=== PATIENT | female | born 1985 | race Caucasian/White ===

== ENCOUNTER 2016-11-18 19:48 | Inpatient (IN) | payer SELFPAY ==
[~2016-11-18] VITALS: Ht 177.8 cm; Wt 70.0 kg
[2016-11-18] MEDS ORDERED: KETOROLAC TROMETHAMINE 30 MG/ML (IVP) VIAL IVP ONE (20:00)
[2016-11-18] MEDS ORDERED: MORPHINE SULFATE 4 MG/ML INJ IV PUSH ONE ×2 (20:00→23:45)
[2016-11-18] MEDS ORDERED: SODIUM CHLORIDE 0.9% FLUSH 10 ML FLUSH IV FLUSH PRN ×2 (20:00→23:45)
[2016-11-18] MEDS ORDERED: ONDANSETRON HCL 4 MG/2 ML VIAL IVP ONE (20:00)
[2016-11-18] MEDS ORDERED: SODIUM CHLOR 0.9% 1000 ML INJ 1,000 ML IV SCH (20:00)
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
[2016-11-18 20:15] VITALS: BP 135/87; PULSE 112; RESP 18; TEMP 99.8; O2SAT 100
[2016-11-18] MEDS ORDERED: TRIL300T PO (20:35)
[2016-11-18 21:04] LABS: BASOPHIL % 0.3 % (0.0-2.0); EOSINOPHIL # 0.2 TH/MM3 (0-0.4); EOSINOPHIL % 1.4 % (0.0-4.0); HEMATOCRIT 40.7 % (35.0-46.0); HEMO FLAGS DIFF FINAL; LYMPH % 6.5 % (9.0-44.0); LYMPHOCYTE # 0.8 TH/MM3 (1.0-4.8); MEAN CORPUSCULAR HEMOGLOBIN 30.7 PG (27.0-34.0); MEAN CORPUSCULAR HGB CONC 33.7 % (32.0-36.0); MONO % 9.2 % (0.0-8.0); NEUT % 82.6 % (16.0-70.0); PLATELET COUNT 200 TH/MM3 (150-450); RED BLOOD COUNT 4.48 MIL/MM3 (4.00-5.30); RED CELL DISTRIBUTION WIDTH 12.8 % (11.6-17.2); WHITE BLOOD COUNT 12.1 TH/MM3 (4.0-11.0)
[2016-11-18 21:07] LABS: BACTERIA, URINE MOD /hpf; BLOOD, URINE SMALL (NEG); COMMENT (UR) CULTURE INDICATED; CULTURE IF INDICATED CULTURE INDICATED; GLUCOSE,URINE NEG (NEG); KETONE, URINE NEG (NEG); NITRITE,URINE NEG (NEG); PH, URINE 8.5 (5.0-8.5); SQUAMOUS EPITHELIAL CELL URINE 8 /hpf (0-5); URINE COLOR LIGHT-YELLOW (YELLW/STRAW)
[2016-11-18 21:12] LABS: INTERNATIONAL NORMALIZED RATIO 0.9 RATIO; PROTHROMBIN TIME - PATIENT 9.9 SEC (9.8-11.6)
[2016-11-18 21:39] LABS: ALT (GPT) 94 U/L (10-53)
[2016-11-18 21:41] LABS: ALKALINE PHOSPHATASE 90 U/L (45-117); TOTAL BILIRUBIN ADULT 0.5 MG/DL (0.2-1.0)
[2016-11-18 21:53] LABS: ANION GAP 7 MEQ/L (5-15); AST (GOT) 61 U/L (15-37); BICARBONATE 26.4 MEQ/L (21.0-32.0); BLOOD UREA NITROGEN 16 MG/DL (7-18); CHLORIDE 103 MEQ/L (98-107); GLOMERULAR FILTRATION RATE 91 ML/MIN (>89); POTASSIUM 4.3 MEQ/L (3.5-5.1); SODIUM (NA) 136 MEQ/L (136-145)
--- NOTE | 2016-11-18 22:24 | RADRPT ---
EXAM DATE/TIME: 11/18/2016 21:54 [facility] COMPARISON: No previous studies available for comparison. INDICATIONS : Patient complains of left side flank pain. ORAL CONTRAST: No oral contrast ingested. RADIATION DOSE: 13.42 CTDIvol (mGy) MEDICAL HISTORY : Renal calculi. SURGICAL HISTORY : None. ENCOUNTER: Initial ACUITY: 2 days PAIN SCALE: 10/10 LOCATION: Left flank TECHNIQUE: Volumetric scanning of the abdomen and pelvis was performed. Using automated exposure control and ad justment of the mA and/or kV according to patient size, radiation dose was kept as low as reasonably achievable to obtain optimal diagnostic quality images. DICOM format image data is available electro nically for review and comparison. FINDINGS: There is evidence of acute obstructive uropathy of the left proximal ureter secondary to a 14 x 8 mm calcified calculus resulting in moderate hydronephrosis on the left. Tiny nonobstructing calcified l eft renal calculi are also noted and measure approximately 2 mm each. Evaluation of the solid organs of the abdomen is limited by the lack of intravenous contrast. No obs tructive uropathy is noted on the right. No ascites is noted. No bowel obstruction is noted. The a ppendix is normal. Minimal scoliosis of the lumbar spine is noted. CONCLUSION: 1. Acute obstructive uropathy of the left proximal ureter at the left ureteropelvic junction secondar y to a calcified calculus measuring 14 x 8 mm. Moderate hydronephrosis is noted on the left. 2. Tiny 2 mm calcified nonobstructing left renal calculi are also noted. 3. Minimal scoliosis of the lumbar spine. Robi Abbasi MD on November 18, 2016 at 22:12 Board Certified Radiologist. This report was verified electronically.
[2016-11-18] MEDS ORDERED: LEVOFLOXACIN 750 MG PREMIX INJ 150 ML IV ONE (22:30)
[2016-11-18] MEDS ORDERED: ONDANSETRON HCL 4 MG/2 ML VIAL IVP PRN (23:45)
[2016-11-18] MEDS ORDERED: NALOXONE HCL 0.4 MG/ML AMP IV PUSH PRN (23:45)
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
[2016-11-19 04:04] VITALS: BP 118/73; PULSE 117; RESP 18; TEMP 100.4; O2SAT 100
[2016-11-19] MEDS: SODIUM CHLOR 0.9% 1000 ML INJ 1,000 ML IV SCH ×3 (04:09→20:56)
[2016-11-19] MEDS: MORPHINE SULFATE 4 MG/ML INJ IV PUSH PRN ×3 (04:09→12:36)
[2016-11-19 06:19] LABS: BICARBONATE 22.6 MEQ/L (21.0-32.0)
[2016-11-19 07:08] VITALS: BP 101/59; PULSE 121; RESP 16; TEMP 101; O2SAT 97
[2016-11-19] MEDS: SODIUM CHLORIDE 0.9% FLUSH 10 ML FLUSH IV FLUSH SCH ×2 (07:30→20:56)
[2016-11-19] MEDS: CIPROFLOXACIN 400 MG PREMIX 200 ML IV SCH ×2 (07:31→20:55)
[2016-11-19 08:43] LABS: AUTOMATED NEUTROPHIL # 9.2 TH/MM3 (1.8-7.7); BASOPHIL % 0.1 % (0.0-2.0); EOSINOPHIL % 0.3 % (0.0-4.0); HEMO FLAGS DIFF FINAL; LYMPH % 7.2 % (9.0-44.0); LYMPHOCYTE # 0.8 TH/MM3 (1.0-4.8); MEAN CELL VOLUME 91.1 FL (80.0-100.0); MEAN CORPUSCULAR HEMOGLOBIN 31.1 PG (27.0-34.0); MEAN CORPUSCULAR HGB CONC 34.2 % (32.0-36.0); MONO % 13.5 % (0.0-8.0); NEUT % 78.9 % (16.0-70.0); PLATELET COUNT 171 TH/MM3 (150-450); RED BLOOD COUNT 4.07 MIL/MM3 (4.00-5.30); RED CELL DISTRIBUTION WIDTH 12.8 % (11.6-17.2); WHITE BLOOD COUNT 11.6 TH/MM3 (4.0-11.0)
[2016-11-19 12:39] VITALS: BP 117/57; PULSE 125; RESP 16; TEMP 101.4; O2SAT 96
--- NOTE | 2016-11-19 14:01 | HHI.PR ---
Subjective Remarks Follow-up for obstructive uropathy Patient complaining of left flank pain. She stated pain is not controlled current regimen. Deny nausea/vomiting. Dealt with patient's nurse. Patient scheduled for procedure today with urologist. Objective Vitals Vital Signs Date Time Temp Pulse Resp B/P (MAP) Pulse Ox O2 Delivery O2 Flow Rate FiO2 11/19/16 12:56 20 11/19/16 12:39 101.4 125 16 117/57 (77) 96 11/19/16 07:08 101.0 121 16 101/59 (73) 97 11/19/16 04:04 100.4 117 18 118/73 (88) 100 11/18/16 20:15 99.8 112 18 135/87 (103) 100 I/O 11/18/16 11/18/16 11/18/16 11/19/16 11/19/16 11/19/16 07:00 15:00 23:00 07:00 15:00 23:00 Intake Total 525 ml 200 ml Balance 525 ml 200 ml Intake IV Total 525 ml 200 ml # Voids 2 Result Diagram: 11/19/16 0800 11/19/16 0455 Objective Remarks GENERAL: in NAD CARDIOVASCULAR: Regular rate and rhythm without murmurs, gallops, or rubs. RESPIRATORY: Breath sounds equal bilaterally. No accessory muscle use. GASTROINTESTINAL: Abdomen soft, non-tender, nondistended. MUSCULOSKELETAL: No cyanosis, or edema. BACK: Nontender without obvious deformity. + left CVA tenderness Medications and IVs Current Medications Morphine Sulfate (Morphine Inj) 4 mg ONCE ONCE IV PUSH ; Start 11/18/16 at 20: 00; Stop 11/18/16 at 20:04; Status DC Ondansetron HCl (Zofran Inj) 4 mg ONCE ONCE IVP Last administered on 20:53; Start 11/18/16 at 20:00; Stop 11/18/16 at 20:04; Status DC Sodium Chloride 1,000 ml @ 125 mls/hr Q8H IV Last administered on 11/18/16 20 :53; Start 11/18/16 at 20:00; Stop 11/19/16 at 03:59; Status DC Sodium Chloride (NS Flush) 2 ml UNSCH PRN IV FLUSH FLUSH AFTER USING IV ACCESS Last administered on 11/18/16 23:21; Start 11/18/16 at 20:00; Stop 11/18/16 at 23:52; Status DC Ketorolac Tromethamine (Toradol Inj) 30 mg ONCE ONCE IVP Last administered on 11/18/16 20:53; Start 11/18/16 at 20:00; Stop 11/18/16 at 20:04; Status DC Levofloxacin/ Dextrose 150 ml @ 100 mls/hr ONCE ONCE IV Last administered on 11/18/16 23:21; Start 11/18/16 at 22:30; Stop 11/18/16 at 23:59; Status DC Morphine Sulfate (Morphine Inj) 4 mg ONCE ONCE IV PUSH Last administered on 00:13; Start 11/18/16 at 23:45; Stop 11/18/16 at 23:46; Status DC Sodium Chloride 1,000 ml @ 100 mls/hr Q10H IV Last administered on 11/19/16 07:31; Start 11/18/16 at 23:42 Sodium Chloride (NS Flush) 2 ml UNSCH PRN IV FLUSH FLUSH AFTER USING IV ACCESS ; Start 11/18/16 at 23:45 Sodium Chloride (NS Flush) 2 ml BID IV FLUSH ; Start 11/19/16 at 09:00 Ondansetron HCl (Zofran Inj) 4 mg Q6H PRN IVP NAUSEA OR VOMITING Last administered on 11/19/16 00:14; Start 11/18/16 at 23:45 Naloxone HCl (Narcan Inj) 0.4 mg UNSCH PRN IV PUSH SEE LABEL COMMENTS; Start at 23:45 Morphine Sulfate (Morphine Inj) 2 mg Q3H PRN IV PUSH pain >5 Last administered on 11/19/16 12:36; Start 11/18/16 at 23:45; Stop 11/19/16 at 13:39; Status DC Ciprofloxacin/ Dextrose 200 ml @ 200 mls/hr Q12H IV Last administered on 07:31; Start 11/19/16 at 09:00 Hydromorphone HCl (Dilaudid Pf Inj) 1 mg Q3HR PRN IV PUSH pain >4; Start at 13:45; Status UNV A/P Problem List: (1) Nephrolithiasis ICD Code: N20.0 - Calculus of kidney Status: Acute (2) UTI (urinary tract infection) ICD Code: N39.0 - Urinary tract infection, site not specified Status: Acute (3) Leukocytosis ICD Code: D72.829 - Elevated white blood cell count, unspecified Assessment and Plan 30 y/o female with a history of a mood disorder and kidney stones presented to the ED with complains of nausea, vomiting and abdominal pain. Nephrolithiasis with hydronephrosis Abdominal CT reviewed and shows acute obstructive uropathy of the left proximal ureter at the left ureteropelvic junction secondary to a calcified calculus measuring 14x8 mm. Moderate hydronephrosis on the left. -Urologist consulted and patient scheduled for OP with stent placement. -Continue with NPO, IV hydration and antibiotics. -Morphine is not controlling pain will switch to IV Dilaudid. After procedure will discontinue IV pain medication. UTI, suspect e coli, with leukocytosis, wbc 12.1, abnormal UA with larger leukocyte esterase and protein -Ciprofloxacin IV BID -Cont IVF -Urine culture pending, follow culture DVT prophylaxis: SCDs Problem Qualifiers (1) UTI (urinary tract infection): Qualified Codes: N30.00 - Acute cystitis without hematuria Orin Castillo MD Nov 19, 2016 14:01
[2016-11-19] MEDS: HYDROmorphone HCL PF 1 MG/ML VIAL IV PUSH PRN ×3 (14:47→21:04)
[2016-11-19 16:08] VITALS: BP 129/65; PULSE 124; RESP 18; TEMP 102.7; O2SAT 98
[2016-11-19 16:16] VITALS: PULSE 125
[2016-11-19] MEDS ORDERED: PROPOFOL 200 MG/20 ML AMP IV ONE (16:41)
[2016-11-19] MEDS ORDERED: KETOROLAC TROMETHAMINE 60 MG/2 ML (IM) VIAL IM ONE (16:41)
[2016-11-19] MEDS ORDERED: MIDAZOLAM HCL 2 MG/2 ML VIAL IV ONE (16:41)
[2016-11-19] MEDS ORDERED: DEXAMETHASONE SOD PHOS 4 MG/ML VIAL IV ONE (16:41)
[2016-11-19] MEDS ORDERED: LIDOCAINE HCL 1% PF 5 ML AMPULE OTHER ONE (16:41)
[2016-11-19] MEDS ORDERED: ONDANSETRON HCL 4 MG/2 ML VIAL IV PUSH ONE (16:41)
[2016-11-19] MEDS ORDERED: ACETAMINOPHEN 500 MG CPLT PO PRN (19:00)
[2016-11-19] MEDS ORDERED: LEVOFLOXACIN 750 MG PREMIX INJ 150 ML IV ONE (19:12)
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
[2016-11-19] MEDS ORDERED: ACETAMINOPHEN 1000 MG/100 ML 100 ML IV ONE (19:46)
--- NOTE | 2016-11-19 19:54 | HHI.PR ---
Subjective Patient symptoms today Successful left ureteral stent placement. Significant purulent material expressed from left collecting system upon stent placement. Large left UPJ stone noted on fluoroscopy with stent in good position -Patient is clear for discharge from urology standpoint with antibiotics and Urology follow-up for definitive stone management and stent removal -Please call with questions Objective Vital Signs Vital Signs Date Time Temp Pulse Resp B/P (MAP) Pulse Ox O2 Delivery O2 Flow Rate FiO2 11/19/16 18:22 18 11/19/16 16:16 125 11/19/16 16:08 102.7 124 18 129/65 (86) 98 11/19/16 12:56 20 11/19/16 12:39 101.4 125 16 117/57 (77) 96 11/19/16 07:08 101.0 121 16 101/59 (73) 97 11/19/16 04:04 100.4 117 18 118/73 (88) 100 11/18/16 20:15 99.8 112 18 135/87 (103) 100 Result Diagram: 11/19/16 0800 11/19/16 0455 Assessment and Plan Problem List: (1) Nephrolithiasis ICD Code: N20.0 - Calculus of kidney Status: Acute (2) UTI (urinary tract infection) ICD Code: N39.0 - Urinary tract infection, site not specified Status: Acute Problem Qualifiers (1) UTI (urinary tract infection): Qualified Codes: N30.00 - Acute cystitis without hematuria Yann Bear MD Nov 19, 2016 19:54
[2016-11-19 20:00] VITALS: BP 101/56; PULSE 102; RESP 20; TEMP 98.7; O2SAT 96
[2016-11-19] MEDS ORDERED: DO NOT ADM ANY ANTICOAGULANT DRUGS PRN (20:30)
[2016-11-20] VITALS: BP 101/55; PULSE 90; RESP 18; TEMP 97.4; O2SAT 97
[2016-11-20] MEDS: HYDROmorphone HCL PF 1 MG/ML VIAL IV PUSH PRN ×3 (00:04→07:31)
[2016-11-20 04:08] VITALS: BP_SYST 89; BP_SYST 98; BP_DIAS 53; BP_DIAS 57; PULSE 79; RESP 18; TEMP 97.2; O2SAT 97
[2016-11-20] MEDS: SODIUM CHLOR 0.9% 1000 ML INJ 1,000 ML IV SCH (04:22)
[2016-11-20 07:36] VITALS: BP 127/69; PULSE 82; RESP 20; TEMP 96.9; O2SAT 100
[2016-11-20] MEDS: CIPROFLOXACIN 400 MG PREMIX 200 ML IV SCH (07:55)
[2016-11-20] MEDS: SODIUM CHLORIDE 0.9% FLUSH 10 ML FLUSH IV FLUSH SCH (07:56)
[2016-11-20] MEDS ORDERED: NORC5TAB PO (09:46)
[2016-11-20] MEDS ORDERED: CIPR-9 PO (09:46)
--- NOTE | 2016-11-20 09:46 | HHI.DCPOC ---
Discharge Care Plan Diagnosis: (1) UTI (urinary tract infection) (2) Nephrolithiasis Goals to Promote Your Health * To prevent worsening of your condition and complications * To maintain your health at the optimal level Directions to Meet Your Goals Take your medications as prescribed Follow your dietary instruction Follow activity as directed Keep your appointments as scheduled Take your immunizations and boosters as scheduled If your symptoms worsen call your PCP, if no PCP go to Urgent Care Center or Emergency Room Smoking is Dangerous to Your Health. Avoid second hand smoke Call the 24-hour hour crisis hotline for domestic abuse at Orin Castillo MD Nov 20, 2016 09:46
--- NOTE | 2016-11-20 09:49 | HHI.DS ---
Discharge Summary Admission Date Nov 18, 2016 at 23:46 Discharge Date: Nov 20, 2016 Admitting Diagnosis nephrolithiasis. UTI. (1) Nephrolithiasis ICD Code: N20.0 - Calculus of kidney Diagnosis: Principal Status: Acute (2) UTI (urinary tract infection) ICD Code: N39.0 - Urinary tract infection, site not specified Diagnosis: Principal Status: Acute (3) Hydronephrosis ICD Code: N13.30 - Unspecified hydronephrosis Diagnosis: Principal Procedures See hospital course Brief History - From Admission 30 y/o female with a history of a mood disorder and kidney stones presented to the ED with complains of nausea, vomiting and abdominal pain. She states the pain began yesterday in her LLQ and Left lower back, describes it as a sharp stabbing pain, 10/10, with associated nausea and vomiting. She is currently in a lot of pain and is very restless. She denies any chest pain, sob, or fevers. She states she had had a kidney stone in the past in which she underwent lithotripsy. 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 CBC/BMP: 11/19/16 0800 11/19/16 0455 Significant Findings Laboratory Tests Test 11/18/16 20:20 11/19/16 04:55 11/19/16 08:00 White Blood Count 12.1 TH/MM3 (4.0-11.0) 11.6 TH/MM3 (4.0-11.0) Neutrophils (%) (Auto) 82.6 % (16.0-70.0) 78.9 % (16.0-70.0) Lymphocytes (%) (Auto) 6.5 % (9.0-44.0) 7.2 % (9.0-44.0) Monocytes (%) (Auto) 9.2 % (0.0-8.0) 13.5 % (0.0-8.0) Neutrophils # (Auto) 10.0 TH/MM3 (1.8-7.7) 9.2 TH/MM3 (1.8-7.7) Lymphocytes # (Auto) 0.8 TH/MM3 (1.0-4.8) 0.8 TH/MM3 (1.0-4.8) Monocytes # (Auto) 1.1 TH/MM3 (0-0.9) 1.6 TH/MM3 (0-0.9) Urine Turbidity CLOUDY (CLEAR) Urine Protein 30 mg/dL (NEG-TRACE) Urine Occult Blood SMALL (NEG) Urine Leukocyte Esterase LARGE (NEG) Urine RBC 12 /hpf (0-3) Urine Bacteria MOD /hpf (NONE) Aspartate Amino Transf (AST/SGOT) 61 U/L (15-37) Alanine Aminotransferase (ALT/SGPT) 94 U/L (10-53) Calcium Level 7.8 MG/DL (8.5-10.1) Sodium Level 135 MEQ/L (136-145) Estimat Glomerular Filtration Rate 87 ML/MIN (>89) Imaging Last Impressions Abdomen/Pelvis CT 11/18/161999 Signed Impressions: Service Date/Time: Friday, November 18, 2016 21:54 - CONCLUSION: 1. Acute obstructive uropathy of the left proximal ureter at the left ureteropelvic junction secondary to a calcified calculus measuring 14 x 8 mm. Moderate hydronephrosis is noted on the left. 2. Tiny 2 mm calcified nonobstructing left renal calculi are also noted. 3. Minimal scoliosis of the lumbar spine. Robi Abbasi MD PE at Discharge GENERAL: in NAD CARDIOVASCULAR: Regular rate and rhythm without murmurs, gallops, or rubs. RESPIRATORY: Breath sounds equal bilaterally. No accessory muscle use. GASTROINTESTINAL: Abdomen soft, non-tender, nondistended. Negative peritoneal signs. MUSCULOSKELETAL: No cyanosis, or edema. BACK: Nontender without obvious deformity. Negative left CVA tenderness. Pt update on day of discharge Patient stated that pain has improved but she feels some soreness on left side. She stated that she's not producing a lot of urine. Per documentation in the EMR system patient is producing urine. I also spoke to patient's nurse in regards to this and she said that she has good urine output and that she also did a bladder scan and her bladder scan was 10 cc. Otherwise patient remains afebrile. Hospital Course 30 y/o female with a history of a mood disorder and kidney stones presented to the ED with complains of nausea, vomiting and abdominal pain. Nephrolithiasis with hydronephrosis Abdominal CT reviewed and shows acute obstructive uropathy of the left proximal ureter at the left ureteropelvic junction secondary to a calcified calculus measuring 14x8 mm. Moderate hydronephrosis on the left. -Urologist consulted and patient had a successful left ureteral stent placement. There was significant pleuritic material expressed from the left collecting system upon stent placement. Urologist also saw a large left UPJ stone noted on fluoroscopy with stent in good placement. -Patient was given supportive care with IV fluids and pain medication which improved drastically after the procedure. UTI, suspect e coli, with leukocytosis, wbc 12.1, abnormal UA with larger leukocyte esterase and protein -Patient treated empirically with Ciprofloxacin IV BID -Urine cultures grew gram-negative rods. She was doing well and discharged on Cipro pending urine cultures. Follow-up with urologist. Pt Condition on Discharge: Stable Discharge Disposition: Discharge Home Discharge Time: <= 30 minutes Discharge Instructions DIET: Follow Instructions for: As Tolerated, No Restrictions Activities you can perform: Regular-No Restrictions Follow up Referrals: PCP Follow-up - 1 Year Urology - 1 Week with Yann Bear MD New Medications: Ciprofloxacin (Cipro) 500 Mg Tab 500 MG PO BID for Infection, #12 TAB 0 Refills Hydrocodone-Acetaminophen ([place]) 5-325 mg Tab 1-2 TAB PO Q6H PRN for PAIN, #15 TAB 0 Refills Continued Medications: Oxcarbazepine (Trileptal) 300 Mg Tab 300 MG PO DAILY for Seizure Control, #30 TAB 0 Refills Orin Castillo MD Nov 20, 2016 09:49
--- NOTE | 2016-11-20 10:07 | MP ---
cc: YOLA DALAL MD DATE OF SURGERY: November 19, 2016 PREOPERATIVE DIAGNOSIS Left ureteral stone. POSTOPERATIVE DIAGNOSIS Left ureteral stone. SURGEON Yola Dalal MD PROCEDURE 1. Cystoscopy. 2. Left ureteral stent placement. PERTINENT FINDINGS 1. Large left UPJ stone approximately 1.4 cm noted on fluoroscopy. 2. Significant purulent material expressed from the left collecting system upon placement of the left ureteral stent. 3. 6 x 24 double-J ureteral stent successfully placed in the left collecting system with good curl in the renal pelvis as well as in the bladder. HISTORY OF PRESENT ILLNESS Gayatri Buchanan is a 30-year-old female with history of nephrolithiasis, admitted currently for 1.4 cm obstructing left ureteral stone and left sided hydronephrosis and evidence of UTI. She presents now for management of left ureteral stent placement. The patient understands she is to followup in the clinic for definitive stone management and stent removal. The patient understands that if she does not follow-up and does not have the stent removed she can suffer from kidney damage and potential renal failure. PROCEDURE IN DETAIL After proper informed consent was obtained, the patient was taken to the operating room and laid supine on the table. Bilateral lower extremity SCDs were then placed. The patient was placed under general anesthesia. The patient was placed in lithotomy position, prepped and draped in standard surgical fashion. After proper timeout was completed, the rigid cystoscope was inserted to the urethra and the bladder. Urethra mucosa was within normal limits without any abnormalities or lesion within the bladder, bilateral ureteral orifice were identified. The left ureteral orifice was then identified and cannulated using the guidewire. The guidewire was able to be advanced up into the left renal pelvis. This was confirmed in position via fluoroscopy. Of note the stone was easily visible on fluoroscopic images. At this point a 6.24 double-J ureteral stent was then successfully placed in the left collecting system with curl in the renal pelvis as well as in the bladder. Upon placement of the stent significant purulent material was expressed from the left collecting system. The patient's bladder was irrigated and emptied. The scope was then removed and the patient tolerated the procedure well with no complications. The patient was awoken from anesthesia and taken to PACU in stable condition. DISPOSITION The patient will be overnight observation and antibiotics. The patient may then be discharged with followup in urology for definitive stone management and removal of the left ureteral stent. The patient understands the risks of not following up and keeping the retained stent which include the risk of kidney damage and renal failure and further calcifications of the left collecting system. Audrey Fragoso/PAM /7:55 PM /9:28 AM MTDD
== END 2016-11-20 12:09 | disposition home or self-care (01) | DRG 690 ==
LOC: NEPD 19:48 → NEDA 23:46 → NEPGCP 11-19 00:43 → N07A 11-19 17:59
PROVIDERS: ADMIT Family Medicine; ATTEND Family Medicine
PROC: 0T778DZ Dilation of Left Ureter with Intraluminal Device, Via Natural or Artificial Opening Endoscopic (ICD-10-PCS; principal; 2016-11-19 19:18)
DX: N13.6 Pyonephrosis (principal); N20.0 Calculus of kidney; B96.20 Unspecified Escherichia coli [E. coli] as the cause of diseases classified elsewhere; F17.210 Nicotine dependence, cigarettes, uncomplicated; F39 Unspecified mood [affective] disorder; Z87.442 Personal history of urinary calculi
CPT/HCPCS: 74176; 74420; 80048; 80053; 81001; 84703; 85025; 85610; 85730; 87077; 87086; 87186; 96361; 96365; 96375; C1769; C2617; J0131; J0744; J1100; J1170; J1885; J1956; J2250; J2270; J2405; J3010; J7030

== ENCOUNTER 2016-12-24 07:54 | Emergency (ER) | payer SELFPAY ==
[~2016-12-24 07:54] MED LIST: CIPR-9 PO; NORC5TAB PO; TRIL300T PO
[2016-12-24 07:56] VITALS: BP 119/67; PULSE 84; RESP 15; TEMP 99; O2SAT 97
[2016-12-24] MEDS ORDERED: ABIL2TAB2 PO (10:24)
[2016-12-24 11:02] LABS: BACTERIA, URINE OCC /hpf; BILIRUBIN, URINE NEG (NEG); BLOOD, URINE TRACE (NEG); GLUCOSE,URINE NEG (NEG); HYALINE CAST, URINE 1 /lpf (RARE); KETONE, URINE NEG (NEG); MUCUS URINE FEW /lpf (OCC); NITRITE,URINE NEG (NEG); PH, URINE 7.5 (5.0-8.5); SQUAMOUS EPITHELIAL CELL URINE 1 /hpf (0-5); TRANSITIONAL EPI CELLS, URINE <1 /hpf; URINE COLOR LIGHT-YELLOW (YELLW/STRAW); URINE LEUKOCYTE ESTERASE LARGE (NEG); WHITE BLOOD CELL CLUMPS RARE
[2016-12-24] MEDS ORDERED: KETO10 PO (12:20)
[2016-12-24] MEDS ORDERED: ULTR50TA5 PO (12:20)
[2016-12-24] MEDS ORDERED: MACR100C2 PO (12:20)
[2017-01-06] MEDS ORDERED: TRIL300T PO (13:21)
[2017-01-06] MEDS ORDERED: PHEN0.4T PO (14:34)
== END 2016-12-24 08:43 | disposition left against medical advice (07) ==
LOC: NED 07:54
DX: B96.20 Unspecified Escherichia coli [E. coli] as the cause of diseases classified elsewhere (principal)
CPT/HCPCS: 81001; 84703; 87077; 87086; 87186; 99281

== ENCOUNTER 2016-12-24 10:06 | Emergency (ER) | payer SELFPAY ==
[~2016-12-24] VITALS: Ht 177.8 cm; Wt 66.0 kg
[2016-12-24 10:08] VITALS: BP 120/62; PULSE 85; RESP 15; TEMP 98.2; O2SAT 98
[2016-12-24] MEDS ORDERED: ABIL2TAB2 PO (10:24)
[2016-12-24] MEDS ORDERED: SODIUM CHLORIDE 0.9% FLUSH 10 ML FLUSH IVF PRN (10:30)
[2016-12-24] MEDS ORDERED: cefTRIAXone INJ 2,000 MG in SODIUM CHLORIDE 0.9% INJ 100 ML IV ONE (10:30)
[2016-12-24] MEDS ORDERED: MORPHINE SULFATE 4 MG/ML INJ IV PUSH ONE (10:30)
[2016-12-24] MEDS ORDERED: KETOROLAC TROMETHAMINE 30 MG/ML (IVP) VIAL IV PUSH ONE (10:30)
[2016-12-24] MEDS ORDERED: ONDANSETRON HCL 4 MG/2 ML VIAL IV PUSH ONE (10:30)
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
[2016-12-24 11:38] LABS: BACTERIA, URINE FEW /hpf; BLOOD, URINE SMALL (NEG); GLUCOSE,URINE NEG (NEG); KETONE, URINE NEG (NEG); MUCUS URINE FEW /lpf (OCC); NITRITE,URINE NEG (NEG); PH, URINE 7.5 (5.0-8.5); URINE COLOR LIGHT-YELLOW (YELLW/STRAW)
[2016-12-24 11:40] LABS: COMMENT (UR) CULTURE INDICATED; CULTURE IF INDICATED CULTURE INDICATED
[2016-12-24 11:57] LABS: BASOPHIL % 0.4 % (0.0-2.0); EOSINOPHIL # 0.1 TH/MM3 (0-0.4); EOSINOPHIL % 1.1 % (0.0-4.0); HEMATOCRIT 33.2 % (35.0-46.0); HEMO FLAGS DIFF FINAL; LYMPH % 18.7 % (9.0-44.0); LYMPHOCYTE # 1.7 TH/MM3 (1.0-4.8); MEAN CORPUSCULAR HEMOGLOBIN 30.2 PG (27.0-34.0); MEAN CORPUSCULAR HGB CONC 33.5 % (32.0-36.0); MONO % 12.4 % (0.0-8.0); NEUT % 67.4 % (16.0-70.0); PLATELET COUNT 224 TH/MM3 (150-450); RED BLOOD COUNT 3.68 MIL/MM3 (4.00-5.30); RED CELL DISTRIBUTION WIDTH 13.1 % (11.6-17.2); WHITE BLOOD COUNT 8.9 TH/MM3 (4.0-11.0)
[2016-12-24 12:12] LABS: BICARBONATE 29.3 MEQ/L (21.0-32.0); POTASSIUM 3.8 MEQ/L (3.5-5.1)
[2016-12-24] MEDS ORDERED: ULTR50TA5 PO (12:20)
[2016-12-24] MEDS ORDERED: MACR100C2 PO (12:20)
[2016-12-24] MEDS ORDERED: KETO10 PO (12:20)
== END 2016-12-24 13:56 | disposition home or self-care (01) ==
LOC: NEPE 10:06
DX: N20.1 Calculus of ureter (principal); N39.0 Urinary tract infection, site not specified; B96.20 Unspecified Escherichia coli [E. coli] as the cause of diseases classified elsewhere; Z16.23 Resistance to quinolones and fluoroquinolones
CPT/HCPCS: 80048; 81001; 85025; 87077; 87086; 87186; 96365; 96375; 99284; J0696; J1885; J2270; J2405

== ENCOUNTER 2017-02-23 11:39 | Inpatient (IN) | payer OTHER ==
[~2017-02-23] VITALS: Ht 175.3 cm; Wt 68.0 kg
[~2017-02-23 11:39] MED LIST changes: +ARIP2 PO; -CIPR-9 PO; -NORC5TAB PO; +PHEN0.4T PO
[2017-02-23 11:41] VITALS: BP 132/84; PULSE 114; RESP 16; TEMP 103.6; O2SAT 97
[2017-02-23 11:58] VITALS: O2SAT 99
--- NOTE | 2017-02-23 12:06 | PD ---
HPI Chief Complaint: Fever Time Seen by Provider: 11:52 Travel History International Travel<30 days: No Contact w/Intl Traveler<30days: No Traveled to known affect area: No History of Present Illness HPI Patient is a 31-year-old female with a history of kidney stones on the left side presents emergency Department with fever and dysuria for the past few days , she states that several months ago she had a stent placed an outside facility [place] for a large kidney stone, she does not have any insurance and after returning home to [place] she's been trying to establish with Dr. Ruth to have her stent removed, she states ultimately Dr. Ruth wants to surgically remove the stent but she has been unable to schedule the surgery as of yet. She endorses generalized body aches and some fevers and this prompted her to come into the emergency department today. Symptoms for the past few days, gradually worsening, moderate in severity, associated with some nausea with nonbilious nonbloody vomiting. PFSH Past Medical History Bipolar Disorder: Yes Cancer: No (LEAP PROCEDURE WHEN 18 PRECANCEROUS CELLS REMOVED ) Cardiovascular Problems: No Diabetes: No Diminished Hearing: No Endocrine: No Genitourinary: Yes (HAD HX KIDNEY INFECTIONS, PT STATES SHE DOES NOT DRINK MUCH WATER ) Immune Disorder: No Kidney Stones: Yes Neurologic: No Psychiatric: Yes (TAKES TIRLIPDAL FOR BIPOLAR ) Respiratory: No ?: Not Past Surgical History Other Surgery: Yes (ORTHAPEDIC SURGERY RT ARM, TANMAY AND SCREWS ) Social History Alcohol Use: No Tobacco Use: Yes (1 PPD) Substance Use: No (PT DENIES SUBSTANCE USE ) Allergies-Medications (Allergen,Severity, Reaction): Coded Allergies: Penicillins (Verified Allergy, Unknown, 02/23/17) amoxicillin (Verified Allergy, Unknown, 02/23/17) Reported Meds & Prescriptions Reported Meds & Active Scripts Active Pyridium (Phenazopyridine HCl) 100 Mg Tab 100 Mg PO Q8H PRN Reported Trileptal (Oxcarbazepine) 300 Mg Tab 300 Mg PO BID Abilify (Aripiprazole) 2 Mg Tab 5 Mg PO DAILY Trileptal (Oxcarbazepine) 300 Mg Tab 300 Mg PO DAILY Review of Systems Except as stated in HPI: all other systems reviewed are Neg Physical Exam Narrative GENERAL: Well-developed well-nourished, appears uncomfortable, mildly diaphoretic. SKIN: Focused skin assessment warm/Hot. HEAD: Atraumatic. Normocephalic. EYES: Pupils equal and round. No scleral icterus. No injection or drainage. ENT: No nasal bleeding or discharge. Mucous membranes pink and moist. NECK: Trachea midline. No JVD. CARDIOVASCULAR: Regular rate and rhythm. No murmur appreciated. RESPIRATORY: No accessory muscle use. Clear to auscultation. Breath sounds equal bilaterally. GASTROINTESTINAL: Abdomen soft, non-tender, nondistended. Hepatic and splenic margins not palpable. Minimal CVA tenderness on the Left. MUSCULOSKELETAL: No obvious deformities. No clubbing. No cyanosis. No edema. NEUROLOGICAL: Awake and alert. No obvious cranial nerve deficits. Motor grossly within normal limits. Normal speech. PSYCHIATRIC: Appropriate mood and affect; insight and judgment normal. Data Data Last Documented VS Vital Signs Date Time Temp Pulse Resp B/P (MAP) Pulse Ox O2 Delivery O2 Flow Rate FiO2 02/23/17 14:29 18 02/23/17 14:21 99.4 94 128/76 (93) 99 02/23/17 11:58 Room Air Orders Orders Urinalysis - C+S If Indicated (02/23/17 11:52) Ed Urine Pregnancytest Poc (02/23/17 11:52) Sepsis Workup Initiated (02/23/17 ) Complete Blood Count With Diff (02/23/17 11:53) Comprehensive Metabolic Panel (02/23/17 11:53) Prothrombin Time / Inr (Pt) (02/23/17 11:53) Act Partial Throm Time (Ptt) (02/23/17 11:53) Lactic Acid Sepsis Protocol (02/23/17 11:53) Magnesium (Mg) (02/23/17 11:53) Phosphorus (Po4) (02/23/17 11:53) Blood Culture (02/23/17 11:53) Ecg Monitoring (02/23/17 11:53) Iv Access Insert/Monitor (02/23/17 11:53) Oximetry (02/23/17 11:53) Oxygen Administration (02/23/17 11:53) Sodium Chlor 0.9% 1000 Ml Inj (Ns 1000 M (02/23/17 12:15) Sodium Chlor 0.9% 1000 Ml Inj (Ns 1000 M (02/23/17 12:15) Acetaminophen (Tylenol) (02/23/17 12:15) Influenzae A/B Antigen (02/23/17 12:05) Urine Culture (02/23/17 11:59) Ibuprofen (Motrin) (02/23/17 12:45) Ct Abd/Pel W/O Iv Contrast (02/23/17 ) Ciprofloxacin 400 Mg Premix (Cipro 400 M (02/23/17 14:15) Admit Order (Ed Use Only) (02/23/17 ) Consult Urology (02/23/17 ) Labs Laboratory Tests Test 02/23/17 11:59 02/23/17 12:00 Urine Color YELLOW Urine Turbidity HAZY Urine pH 6.5 Urine Specific [place] 1.012 Urine Protein 30 mg/dL Urine Glucose (UA) NEG mg/dL Urine Ketones NEG mg/dL Urine Occult Blood MOD Urine Nitrite NEG Urine Bilirubin NEG Urine Urobilinogen LESS THAN 2.0 MG/DL Urine Leukocyte Esterase LARGE Urine RBC 68 /hpf Urine WBC /hpf Urine Squamous Epithelial Cells 1 /hpf Urine Bacteria OCC /hpf Urine Mucus FEW /lpf Microscopic Urinalysis Comment CULTURE INDICATED White Blood Count 12.0 TH/MM3 Red Blood Count 4.40 MIL/MM3 Hemoglobin 13.5 GM/DL Hematocrit 38.9 % Mean Corpuscular Volume 88.4 FL Mean Corpuscular Hemoglobin 30.6 PG Mean Corpuscular Hemoglobin Concent 34.6 % Red Cell Distribution Width 14.2 % Platelet Count 217 TH/MM3 Mean Platelet Volume 7.4 FL Neutrophils (%) (Auto) 78.9 % Lymphocytes (%) (Auto) 11.2 % Monocytes (%) (Auto) 9.3 % Eosinophils (%) (Auto) 0.4 % Basophils (%) (Auto) 0.2 % Neutrophils # (Auto) 9.4 TH/MM3 Lymphocytes # (Auto) 1.3 TH/MM3 Monocytes # (Auto) 1.1 TH/MM3 Eosinophils # (Auto) 0.0 TH/MM3 Basophils # (Auto) 0.0 TH/MM3 CBC Comment DIFF FINAL Differential Comment Prothrombin Time 10.2 SEC Prothromb Time International Ratio 1.0 RATIO Activated Partial Thromboplast Time 28.9 SEC Blood Urea Nitrogen 12 MG/DL Creatinine 0.91 MG/DL Random Glucose 105 MG/DL Total Protein 7.9 GM/DL Albumin 3.1 GM/DL Calcium Level 8.4 MG/DL Phosphorus Level 1.8 MG/DL Magnesium Level 1.8 MG/DL Alkaline Phosphatase 80 U/L Aspartate Amino Transf (AST/SGOT) 16 U/L Alanine Aminotransferase (ALT/SGPT) 18 U/L Total Bilirubin 0.4 MG/DL Sodium Level 137 MEQ/L Potassium Level 4.1 MEQ/L Chloride Level 102 MEQ/L Carbon Dioxide Level 26.8 MEQ/L Anion Gap 8 MEQ/L Estimat Glomerular Filtration Rate 73 ML/MIN Lactic Acid Level 2.0 mmol/L Beta HCG, Qualitative LESS THAN 1 MIU/ML MDM Medical Decision Making Medical Screen Exam Complete: Yes Emergency Medical Condition: Yes Differential Diagnosis Pyelonephritis, obstructing kidney stone, sepsis. Narrative Course Patient 31-year-old female septic from pyelonephritis, has renal stent in place , he's been trying to set up surgery with Dr. Ruth to have her stent removed. Fluids Cipro given in the emergency department, discussed with Dr. Rooney will broaden coverage to include MRSA coverage. Patient was also discussed with Dr. Cornejo's who agrees with the above and admission. Last 24 hours Impressions Abdomen/Pelvis CT 02/23/17 0000 Signed Impressions: Service Date/Time: Thursday, February 23, 2017 12:55 - CONCLUSION: 1. Double-J stent the left in good position. Stone remains and pelvis 2. No other abnormality appreciated. 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 She declined having any narcotics in the ER. She was offered Toradol and declined this as well this time. Diagnosis Primary Impression: Pyelonephritis Additional Impression: Sepsis Admitting Information Admitting Physician Requests: Admit Condition: Robi Worley MD Feb 23, 2017 12:06
[2017-02-23] MEDS ORDERED: ACETAMINOPHEN 325 MG TAB PO ONE (12:15)
[2017-02-23] MEDS ORDERED: SODIUM CHLOR 0.9% 1000 ML INJ 1,000 ML IV ONE ×2 (12:15)
[2017-02-23 12:20] LABS: AUTOMATED NEUTROPHIL # 9.4 TH/MM3 (1.8-7.7); BASOPHIL % 0.2 % (0.0-2.0); EOSINOPHIL % 0.4 % (0.0-4.0); HEMATOCRIT 38.9 % (35.0-46.0); HEMOGLOBIN 13.5 GM/DL (11.6-15.3); LYMPH % 11.2 % (9.0-44.0); LYMPHOCYTE # 1.3 TH/MM3 (1.0-4.8); MEAN CELL VOLUME 88.4 FL (80.0-100.0); MEAN CORPUSCULAR HEMOGLOBIN 30.6 PG (27.0-34.0); MEAN CORPUSCULAR HGB CONC 34.6 % (32.0-36.0); MEAN PLATELET VOLUME 7.4 FL (7.0-11.0); MONO % 9.3 % (0.0-8.0); MONOCYTE # 1.1 TH/MM3 (0-0.9); NEUT % 78.9 % (16.0-70.0); PLATELET COUNT 217 TH/MM3 (150-450); RED CELL DISTRIBUTION WIDTH 14.2 % (11.6-17.2)
[2017-02-23 12:27] LABS: BACTERIA, URINE OCC /hpf; BILIRUBIN, URINE NEG (NEG); BLOOD, URINE MOD (NEG); GLUCOSE,URINE NEG (NEG); KETONE, URINE NEG (NEG); MUCUS URINE FEW /lpf (OCC); NITRITE,URINE NEG (NEG); PH, URINE 6.5 (5.0-8.5); SQUAMOUS EPITHELIAL CELL URINE 1 /hpf (0-5); URINE COLOR YELLOW (YELLW/STRAW); URINE LEUKOCYTE ESTERASE LARGE (NEG)
[2017-02-23 12:28] LABS: PROTHROMBIN TIME - PATIENT 10.2 SEC (9.8-11.6)
[2017-02-23 12:41] LABS: ALBUMIN 3.1 GM/DL (3.4-5.0); AST (GOT) 16 U/L (15-37); BICARBONATE 26.8 MEQ/L (21.0-32.0); BLOOD UREA NITROGEN 12 MG/DL (7-18); CALCIUM 8.4 MG/DL (8.5-10.1); CHLORIDE 102 MEQ/L (98-107); CREATININE 0.91 MG/DL (0.50-1.00); GLOMERULAR FILTRATION RATE 73 ML/MIN (>89); GLUCOSE,RANDOM 105 MG/DL (74-106); MAGNESIUM 1.8 MG/DL (1.5-2.5); SODIUM (NA) 137 MEQ/L (136-145)
[2017-02-23] MEDS ORDERED: IBUPROFEN 600 MG TAB PO ONE (12:45)
[2017-02-23 12:46] LABS: ALKALINE PHOSPHATASE 80 U/L (45-117); ALT (GPT) 18 U/L (10-53); PHOSPHORUS 1.8 MG/DL (2.5-4.9); TOTAL BILIRUBIN ADULT 0.4 MG/DL (0.2-1.0); TOTAL PROTEIN 7.9 GM/DL (6.4-8.2)
--- NOTE | 2017-02-23 13:09 | RADRPT ---
EXAM DATE/TIME: 02/23/2017 12:55 [facility] COMPARISON: CT ABDOMEN & PELVIS W/O CONTRAST, November 18, 2016, 21:54. INDICATIONS : Left sided abdomen pain, recent stones, stent in place. ORAL CONTRAST: No oral contrast ingested. RADIATION DOSE: 6.14 CTDIvol (mGy) MEDICAL HISTORY : Renal calculi. SURGICAL HISTORY : None. ENCOUNTER: Initial ACUITY: 1 day no other abnormalities appreciated. PAIN SCALE: 8/10 LOCATION: Left flank TECHNIQUE: Volumetric scanning of the abdomen and pelvis was performed. Using automated exposure control and ad justment of the mA and/or kV according to patient size, radiation dose was kept as low as reasonably achievable to obtain optimal diagnostic quality images. DICOM format image data is available electro nically for review and comparison. FINDINGS: Portion of the liver and spleen identified are unremarkable Pancreas is normal Right kidney is unremarkable Left kidney double-J stent in place with stone and pelvis. Stent is in good position: The bladder. There is no ascites or adenopathy Pelvic contents are unremarkable. CONCLUSION: 1. Double-J stent the left in good position. Stone remains and pelvis 2. No other abnormality appreciated. Maykel Stevens MD FACR on February 23, 2017 at 13:05 Board Certified Radiologist. This report was verified electronically.
[2017-02-23] MEDS ORDERED: CIPROFLOXACIN 400 MG PREMIX 200 ML IV ONE (14:15)
[2017-02-23 14:21] VITALS: BP 128/76; PULSE 94; RESP 16; TEMP 99.4; O2SAT 99
[2017-02-23] MEDS ORDERED: ONDANSETRON HCL 4 MG/2 ML VIAL IVP PRN (15:30)
[2017-02-23] MEDS ORDERED: SODIUM CHLORIDE 0.9% FLUSH 10 ML FLUSH IV FLUSH PRN ×2 (15:30→16:00)
[2017-02-23] MEDS ORDERED: NICOTINE 7 MG/24 HR PATCH T-DERMAL ONE (15:30)
--- NOTE | 2017-02-23 15:33 | HHI.HP ---
HPI Service [facility] Primary Care Physician No Primary Care Physician Admission Diagnosis Sepsis, Pyelonephritis. Diagnoses: (1) Pyelonephritis Diagnosis: Principal (2) IV drug abuse (3) Tobacco abuse Diagnosis: Secondary (4) Narcotic abuse Diagnosis: Secondary (5) Leukocytosis Diagnosis: Principal (6) Hydronephrosis Diagnosis: Principal Chief Complaint: Fevers Travel History International Travel<30 Days: No Contact w/Intl Traveler <30 Da: No Traveled to Known Affected Are: No History of Present Illness Patient is a 31-year-old female. Who presented to the emergency department here at [facility] with a fever. Patient has history of kidney infections. And has history of a urological stent placement. Now comes complaining of pain in the left back and fevers patient was found to have a urinary tract infection and pyelonephritis and hydronephrosis. Urology will be consult and patient will be admitted. Patient does have a past medical history of MRSA in the past as well as tobacco abuse and IV drug abuse and history of kidney infections. As well as bipolar issues has also had an orthopedic surgery on her right arm with rods and screws. Patient states she is Still smoking Review of Systems Constitutional: COMPLAINS OF: Fever, DENIES: Diaphoretic episodes, Fatigue, Weight gain, Weight loss, Chills, Dizziness, Change in appetite Endocrine: DENIES: Abnorml menstrual pattern, Heat/cold intolerance, Polydipsia Eyes: DENIES: Blurred vision, Diplopia, Eye inflammation, Eye pain Ears, nose, mouth, throat: DENIES: Tinnitus, Hearing loss, Vertigo, Nasal discharge Respiratory: DENIES: Apneas, Cough, Snoring, Wheezing, Hemoptysis, Sputum production Cardiovascular: DENIES: Chest pain, Palpitations, Syncope, Dyspnea on Exertion , PND Gastrointestinal: DENIES: Abdominal pain, Black stools, Bloody stools, Constipation, Diarrhea, Nausea, Vomiting Genitourinary: COMPLAINS OF: Urinary frequency, DENIES: Abnormal vaginal bleeding, Dysmenorrhea, Dyspareunia, Sexual dysfunction Musculoskeletal: COMPLAINS OF: Back pain, DENIES: Joint pain, Muscle aches, Stiffness, Joint Swelling Integumentary: DENIES: Abnormal pigmentation, Pruritus, Rash, Nail changes Hematologic/lymphatic: DENIES: Bruising, Lymphadenopathy Immunologic/allergic: DENIES: Eczema, Urticaria Neurologic: DENIES: Abnormal gait, Headache, Localized weakness, Paresthesias, Seizures, Speech Problems Psychiatric: COMPLAINS OF: Anxiety, Depression, DENIES: Confusion, Mood changes Except as stated in HPI: all other systems reviewed are Neg Past Family Social History Past Medical History History of kidney infections. Bipolar disorder/anxiety depression History of IV drug abuse History of MRSA Past Surgical History History of LEEP procedure when she was 18 Orthopedic surgery on the right arm with rods and screws Left-sided double-J stent Reported Medications Reported Meds & Active Scripts Active Pyridium (Phenazopyridine HCl) 100 Mg Tab 100 Mg PO Q8H PRN Reported Trileptal (Oxcarbazepine) 300 Mg Tab 300 Mg PO BID Abilify (Aripiprazole) 2 Mg Tab 5 Mg PO DAILY Trileptal (Oxcarbazepine) 300 Mg Tab 300 Mg PO DAILY Allergies: Coded Allergies: Penicillins (Verified Allergy, Unknown, 02/23/17) amoxicillin (Verified Allergy, Unknown, 02/23/17) Active Ordered Medications Current Medications Sodium Chloride 1,000 ml @ 999 mls/hr BOLUS ONCE IV Last administered on 12:18; Start 02/23/17 at 12:15; Stop 02/23/17 at 13:15; Status DC Sodium Chloride 1,000 ml @ 999 mls/hr BOLUS ONCE IV Last administered on 12:18; Start 02/23/17 at 12:15; Stop 02/23/17 at 13:15; Status DC Acetaminophen (Tylenol) 650 mg ONCE ONCE PO ; Start 02/23/17 at 12:15; Stop 02/23/17 at 12:41; Status DC Ibuprofen (Motrin) 600 mg ONCE ONCE PO Last administered on 02/23/17 13:18; Start 02/23/17 at 12:45; Stop 02/23/17 at 13:01; Status DC Ciprofloxacin/ Dextrose 200 ml @ 200 mls/hr ONCE ONCE IV Last administered on 02/23/17 14:19; Start 02/23/17 at 14:15; Stop 02/23/17 at 15:14; Status DC Family History History of thyroid disease mental disorders and some type of cancer in the family Social History History of IV drug abuse states she quit about a year ago Tobacco abuse half pack to a pack a day Denies any alcohol abuse Physical Exam Vital Signs Vital Signs Date Time Temp Pulse Resp B/P (MAP) Pulse Ox O2 Delivery O2 Flow Rate FiO2 02/23/17 14:29 18 02/23/17 14:21 99.4 94 16 128/76 (93) 99 02/23/17 11:58 99 Room Air 02/23/17 11:58 99 Room Air 02/23/17 11:58 91 18 99 Room Air 02/23/17 11:41 103.6 114 16 132/84 (100) 97 Physical Exam GENERAL: This is a well-nourished, well-developed patient, in no apparent distress. SKIN: No rashes, ecchymoses or lesions. Cool and dry. Multiple tattoos HEAD: Atraumatic. Normocephalic. No temporal or scalp tenderness. EYES: Pupils equal round and reactive. Extraocular motions intact. No scleral icterus. No injection or drainage. ENT: Nose without bleeding, purulent drainage or septal hematoma. Throat without erythema, tonsillar hypertrophy or exudate. Uvula midline. Airway patent. NECK: Trachea midline. No JVD or lymphadenopathy. Supple, nontender, no meningeal signs. CARDIOVASCULAR: Regular rate and rhythm without murmurs, gallops, or rubs. S1 and S2 no S3 or S4 RESPIRATORY: Clear to auscultation. Breath sounds equal bilaterally. No wheezes , rales, or rhonchi. Left-sided CVA tenderness GASTROINTESTINAL: Abdomen soft, non-tender, nondistended. No hepato-splenomegaly , or palpable masses. No guarding. MUSCULOSKELETAL: Extremities without clubbing, cyanosis, or edema. No joint tenderness, effusion, or edema noted. No calf tenderness. Negative Homans sign bilaterally. NEUROLOGICAL: Awake and alert. Cranial nerves II through XII intact. Motor and sensory grossly within normal limits. Five out of 5 muscle strength in all muscle groups. Normal speech. Insight and judgment are good mood and behavior are appropriate Laboratory Laboratory Tests Test 02/23/17 11:59 02/23/17 12:00 Urine Color YELLOW Urine Turbidity HAZY Urine pH 6.5 Urine Specific [place] 1.012 Urine Protein 30 Urine Glucose (UA) NEG Urine Ketones NEG Urine Occult Blood MOD Urine Nitrite NEG Urine Bilirubin NEG Urine Urobilinogen LESS THAN 2.0 Urine Leukocyte Esterase LARGE Urine RBC 68 Urine WBC Urine Squamous Epithelial Cells 1 Urine Bacteria OCC Urine Mucus FEW Microscopic Urinalysis Comment CULTURE INDICATED White Blood Count 12.0 Red Blood Count 4.40 Hemoglobin 13.5 Hematocrit 38.9 Mean Corpuscular Volume 88.4 Mean Corpuscular Hemoglobin 30.6 Mean Corpuscular Hemoglobin Concent 34.6 Red Cell Distribution Width 14.2 Platelet Count 217 Mean Platelet Volume 7.4 Neutrophils (%) (Auto) 78.9 Lymphocytes (%) (Auto) 11.2 Monocytes (%) (Auto) 9.3 Eosinophils (%) (Auto) 0.4 Basophils (%) (Auto) 0.2 Neutrophils # (Auto) 9.4 Lymphocytes # (Auto) 1.3 Monocytes # (Auto) 1.1 Eosinophils # (Auto) 0.0 Basophils # (Auto) 0.0 CBC Comment DIFF FINAL Differential Comment Prothrombin Time 10.2 Prothromb Time International Ratio 1.0 Activated Partial Thromboplast Time 28.9 Blood Urea Nitrogen 12 Creatinine 0.91 Random Glucose 105 Total Protein 7.9 Albumin 3.1 Calcium Level 8.4 Phosphorus Level 1.8 Magnesium Level 1.8 Alkaline Phosphatase 80 Aspartate Amino Transf (AST/SGOT) 16 Alanine Aminotransferase (ALT/SGPT) 18 Total Bilirubin 0.4 Sodium Level 137 Potassium Level 4.1 Chloride Level 102 Carbon Dioxide Level 26.8 Anion Gap 8 Estimat Glomerular Filtration Rate 73 Lactic Acid Level 2.0 Date/Time Source Procedure Growth Status 02/23/17 12:05 Blood Peripheral Aerobic Blood Culture Pending Received 02/23/17 12:05 Blood Peripheral Anaerobic Blood Culture Pending Received 02/23/17 13:03 Nasal Washing Influenza Types A,B Antigen (MOI) - Final NEGATIVE FOR FLU A AND B ANTIGEN.... Complete 02/23/17 11:59 Urine Random Urine Urine Culture Pending Received Result Diagram: 02/23/17 1200 02/23/17 1200 Imaging Last Impressions Abdomen/Pelvis CT 02/23/17 0000 Signed Impressions: Service Date/Time: Thursday, February 23, 2017 12:55 - CONCLUSION: 1. Double-J stent the left in good position. Stone remains and pelvis 2. No other abnormality appreciated. Maykel Stevens MD FACR Caprini VTE Risk Assessment Caprini VTE Risk Assessment: No/Low Risk (score <= 1) Caprini Risk Assessment Model Point Value = 1 Point Value = 2 Point Value = 3 Point Value = 5 Age 41-60 Minor surgery BMI > 25 kg/m2 Swollen legs Varicose veins or History of unexplained or recurrent spontaneous Oral contraceptives or hormone replacement Sepsis (< 1 month) Serious lung disease, including pneumonia (< 1 month) Abnormal pulmonary function Acute myocardial infarction Congestive heart failure (< 1 month) History of inflammatory bowel disease Medical patient at bed rest Age 61-74 Arthroscopic surgery Major open surgery (> 45 min) Laparoscopic surgery (> 45 min) Malignancy Confined to bed (> 72 hours) Immobilizing plaster cast Central venous access Age >= 75 History of VTE Family history of VTE Factor V Leiden Prothrombin [id number] Lupus anticoagulant Anticardiolipin antibodies Elevated serum homocysteine Heparin-induced thrombocytopenia Other congenital or acquired thrombophilia Stroke (< 1 month) Elective arthroplasty Hip, pelvis, or leg fracture Acute spinal cord injury (< 1 month) Prophylaxis Regimen Total Risk Factor Score Risk Level Prophylaxis Regimen 0-1 Low Early ambulation 2 Moderate Order ONE of the following: *Sequential Compression Device (SCD) *Heparin 5000 units SQ BID 3-4 Higher Order ONE of the following medications: *Heparin 5000 units SQ TID *Enoxaparin/Lovenox 40 mg SQ daily (WT < 150 kg, CrCl > 30 mL/min) *Enoxaparin/Lovenox 30 mg SQ daily (WT < 150 kg, CrCl > 10-29 mL/min) *Enoxaparin/Lovenox 30 mg SQ BID (WT < 150 kg, CrCl > 30 mL/min) AND/OR *Sequential Compression Device (SCD) 5 or more Highest Order ONE of the following medications: *Heparin 5000 units SQ TID (Preferred with Epidurals) *Enoxaparin/Lovenox 40 mg SQ daily (WT < 150 kg, CrCl > 30 mL/min) *Enoxaparin/Lovenox 30 mg SQ daily (WT < 150 kg, CrCl > 10-29 mL/min) *Enoxaparin/Lovenox 30 mg SQ BID (WT < 150 kg, CrCl > 30 mL/min) AND *Sequential Compression Device (SCD) Assessment and Plan Assessment and Plan Pyelonephritis/hydronephrosis with history of renal stent double-J on the left will continue on antibiotics with vancomycin and cefepime and Cipro We'll consult pharmacy regarding the vancomycin Urology has been counseled regarding the pyelonephritis and the hydronephrosis and a left sided renal stent for removal and or treatment Fevers continue with antibiotics Psychiatric disorder continue with psychiatric medications Tobacco abuse continue with NicoDerm patch History of MRSA we'll broaden coverage to Vanco and cefepime as well as Cipro Pain control as needed Regular diet await urology input A.m. labs Code Status Full code Discussed Condition With Discussed with the emergency room physician emergency room RN as well as the patient and her family at bedside QUESTIONS answered Maykel Rooney DO Feb 23, 2017 15:33
[2017-02-23] MEDS ORDERED: ACETAMINOPHEN 325 MG TAB PO PRN ×2 (15:45)
[2017-02-23] MEDS ORDERED: BISACODYL 10 MG SUPP RECTAL PRN (15:45)
[2017-02-23] MEDS ORDERED: oxyCODONE/ACETAMINOPHEN 5 MG/325 MG TAB PO PRN (15:45)
[2017-02-23] MEDS ORDERED: MORPHINE SULFATE 2 MG/ML INJ IV PUSH PRN (15:45)
[2017-02-23] MEDS ORDERED: oxyCODONE/ACETAMINOPHEN 10 MG/325 MG TAB PO PRN (15:45)
[2017-02-23] MEDS: SODIUM CHLOR 0.9% 1000 ML INJ 1,000 ML IV SCH ×2 (16:00→22:58)
[2017-02-23] MEDS ORDERED: LACTULOSE SYRUP 20 GM/30 ML CUP PO PRN (16:00)
[2017-02-23] MEDS ORDERED: SENNOSIDES 8.6 MG TAB PO PRN (16:00)
[2017-02-23] MEDS ORDERED: NALOXONE HCL 0.4 MG/ML AMP IV PUSH PRN (16:00)
[2017-02-23] MEDS ORDERED: MAGNESIUM HYDROXIDE SUSP 30 ML CUP PO PRN (16:00)
[2017-02-23] MEDS ORDERED: ONDANSETRON HCL 4 MG/2 ML VIAL IV PUSH PRN (16:00)
[2017-02-23 16:30] VITALS: BP 104/56; PULSE 77; RESP 16; O2SAT 99
[2017-02-23] MEDS ORDERED: METOCLOPRAMIDE HCL 10 MG/2 ML VIAL IV PUSH PRN (16:30)
[2017-02-23 17:00] VITALS: BP 107/65; PULSE 79; RESP 18; TEMP 97.5; O2SAT 98
[2017-02-23] MEDS ORDERED: NICOTINE 14 MG/24 HR PATCH T-DERMAL ONE (17:00)
[2017-02-23] MEDS ORDERED: Vancomycin Consult Pharmacy 1 EA OTHER SCH (17:15)
[2017-02-23] MEDS: CEFEPIME INJ 1,000 MG in SODIUM CHLORIDE 0.9% INJ 100 ML IV SCH ×2 (17:23→22:58)
--- NOTE | 2017-02-23 17:34 | RADRPT ---
EXAM DATE/TIME: 02/23/2017 16:26 [facility] COMPARISON: CT ABDOMEN & PELVIS W/O CONTRAST, February 23, 2017, 12:55. INDICATIONS : Flank pain. MEDICAL HISTORY : Osteoarthritis. Kidney infections. Kidney stones. Bipolar disorder. Depression. Anxiety. Pancreat ic cancer. SURGICAL HISTORY : Stent placement. Leap procedure. Right arm surgery to place wili and screws. ENCOUNTER: Initial ACUITY: 1 month PAIN SCORE: 5/10 LOCATION: Bilateral flank MEASUREMENTS: RIGHT KIDNEY: 12.6 x 5.3 x 5.8 cm LEFT KIDNEY: 15.5 x 5.2 x 6.2 cm FINDINGS: RIGHT KIDNEY: Renal cortex is normal in thickness and echotexture. No hydronephrosis, stone, or mass. LEFT KIDNEY: Mild left hydronephrosis. 8 x 6 x 7 mm calculus in the lower pole. The stent that is seen on CT of to day and the left renal collecting system is not as well visualized on ultrasound. BLADDER: Within normal limits given the degree of distension. CONCLUSION: 1. Mild left hydronephrosis. Left lower pole calculus. 2. Right kidney within normal limits. Chino Beth MD on February 23, 2017 at 17:29 Board Certified Radiologist. This report was verified electronically.
[2017-02-23] MEDS ORDERED: PHENAZOPYRIDINE HCL 200 MG TAB PO PRN (18:00)
[2017-02-23] MEDS ORDERED: VANCOMYCIN INJ 1,000 MG in SODIUM CHLOR 0.9% 250 ML INJ 250 ML IV ONE (18:00)
[2017-02-23] MEDS: TAMSULOSIN HCL 0.4 MG CAP PO SCH (19:22)
[2017-02-23 20:00] VITALS: BP 143/65; PULSE 102; RESP 19; TEMP 99.1; O2SAT 99
[2017-02-23] MEDS: FAMOTIDINE 20 MG TAB PO SCH (20:19)
[2017-02-23] MEDS: DOCUSATE SODIUM 50 MG/SENNA 8.6 MG TAB PO SCH (20:19)
[2017-02-23] MEDS: SODIUM CHLORIDE 0.9% FLUSH 10 ML FLUSH IV FLUSH SCH (20:19)
[2017-02-23] MEDS: OXcarbazepine 300 MG TAB PO SCH (20:19)
[2017-02-23] MEDS ORDERED: ZOLPIDEM TARTRATE 5 MG TAB PO PRN (21:00)
[2017-02-23] MEDS: VANCOMYCIN INJ 1,250 MG in SODIUM CHLOR 0.9% 250 ML INJ 250 ML IV SCH (21:00)
[2017-02-23] MEDS ORDERED: SODIUM CHLORIDE 0.9% FLUSH 10 ML FLUSH IV FLUSH SCH (21:00)
[2017-02-24] VITALS: BP 101/59; PULSE 83; RESP 17; TEMP 96.4; O2SAT 96
--- NOTE | 2017-02-24 07:19 | EKG ---
Date Performed: 02/23/2017 Time Performed: 21:39:18 PTAGE: 31 years EKG: SINUS TACHYCARDIA POSSIBLE RIGHT VENTRICULAR CONDUCTION DELAY NONSPECIFIC T-WAVE ABNORMALIT Y ABNORMAL RHYTHM ECG NO PREVIOUS TRACING DOCTOR: Jonas Díaz Interpretating Date/Time 02/24/2017 07:17:35
[2017-02-24 07:23] LABS: AUTOMATED NEUTROPHIL # 8.1 TH/MM3 (1.8-7.7); BASOPHIL % 0.3 % (0.0-2.0); EOSINOPHIL # 0.2 TH/MM3 (0-0.4); EOSINOPHIL % 1.6 % (0.0-4.0); HEMATOCRIT 32.3 % (35.0-46.0); HEMOGLOBIN 11.1 GM/DL (11.6-15.3); LYMPH % 12.2 % (9.0-44.0); LYMPHOCYTE # 1.3 TH/MM3 (1.0-4.8); MEAN CELL VOLUME 89.3 FL (80.0-100.0); MEAN CORPUSCULAR HEMOGLOBIN 30.7 PG (27.0-34.0); MEAN CORPUSCULAR HGB CONC 34.4 % (32.0-36.0); MEAN PLATELET VOLUME 7.5 FL (7.0-11.0); MONO % 10.7 % (0.0-8.0); MONOCYTE # 1.1 TH/MM3 (0-0.9); NEUT % 75.2 % (16.0-70.0); PLATELET COUNT 199 TH/MM3 (150-450); RED BLOOD COUNT 3.62 MIL/MM3 (4.00-5.30); RED CELL DISTRIBUTION WIDTH 14.2 % (11.6-17.2); WHITE BLOOD COUNT 10.7 TH/MM3 (4.0-11.0)
[2017-02-24 08:00] VITALS: BP 106/65; PULSE 76; RESP 16; TEMP 97.6; O2SAT 96
[2017-02-24 08:01] LABS: ALBUMIN 2.5 GM/DL (3.4-5.0); ALKALINE PHOSPHATASE 72 U/L (45-117); ALT (GPT) 16 U/L (10-53); AST (GOT) 11 U/L (15-37); BICARBONATE 24.3 MEQ/L (21.0-32.0); BLOOD UREA NITROGEN 8 MG/DL (7-18); CHLORIDE 108 MEQ/L (98-107); CREATININE 0.56 MG/DL (0.50-1.00); FREE T4 1.16 NG/DL (0.76-1.46); GLOMERULAR FILTRATION RATE 127 ML/MIN (>89); GLUCOSE,RANDOM 95 MG/DL (74-106); MAGNESIUM 1.8 MG/DL (1.5-2.5); PHOSPHORUS 1.9 MG/DL (2.5-4.9); SODIUM (NA) 139 MEQ/L (136-145); TOTAL BILIRUBIN ADULT 0.3 MG/DL (0.2-1.0); TOTAL PROTEIN 6.4 GM/DL (6.4-8.2)
[2017-02-24] MEDS: CEFEPIME INJ 1,000 MG in SODIUM CHLORIDE 0.9% INJ 100 ML IV SCH ×2 (08:39→17:15)
[2017-02-24] MEDS: FAMOTIDINE 20 MG TAB PO SCH ×3 (08:42→21:00)
[2017-02-24] MEDS: NICOTINE 14 MG/24 HR PATCH T-DERMAL SCH (08:42)
[2017-02-24] MEDS: REMOVE OLD PATCH T-DERMAL SCH (08:42)
[2017-02-24] MEDS: OXcarbazepine 300 MG TAB PO SCH ×2 (08:42→21:29)
[2017-02-24] MEDS: DOCUSATE SODIUM 50 MG/SENNA 8.6 MG TAB PO SCH ×3 (08:42→21:00)
[2017-02-24] MEDS: ARIPiprazole 5 MG TAB PO SCH ×2 (08:42→08:45)
[2017-02-24] MEDS: TAMSULOSIN HCL 0.4 MG CAP PO SCH (08:42)
[2017-02-24] MEDS: SODIUM CHLORIDE 0.9% FLUSH 10 ML FLUSH IV FLUSH SCH ×2 (08:43→21:30)
[2017-02-24] MEDS: SODIUM CHLOR 0.9% 1000 ML INJ 1,000 ML IV SCH ×2 (08:55→21:33)
[2017-02-24] MEDS ORDERED: OXcarbazepine 300 MG TAB PO SCH (09:00)
[2017-02-24] MEDS ORDERED: NICOTINE 7 MG/24 HR PATCH T-DERMAL SCH (09:00)
[2017-02-24] MEDS: VANCOMYCIN INJ 1,250 MG in SODIUM CHLOR 0.9% 250 ML INJ 250 ML IV SCH (09:34)
[2017-02-24 12:00] VITALS: BP 111/68; PULSE 79; RESP 17; TEMP 97.9; O2SAT 97
--- NOTE | 2017-02-24 12:55 | HHI.PR ---
Subjective Remarks Patient seen in follow-up for pyelonephritis Feels better. No further nausea or fever Objective Vitals Vital Signs Date Time Temp Pulse Resp B/P (MAP) Pulse Ox O2 Delivery O2 Flow Rate FiO2 02/24/17 12:00 97.9 79 17 111/68 (82) 97 02/24/17 08:00 97.6 76 16 106/65 (79) 96 02/24/17 00:00 96.4 83 17 101/59 (73) 96 02/23/17 20:00 99.1 102 19 143/65 (91) 99 02/23/17 17:00 97.5 79 18 107/65 (79) 98 02/23/17 16:44 02/23/17 16:30 77 16 104/56 (72) 99 Room Air 02/23/17 14:29 18 02/23/17 14:21 99.4 94 16 128/76 (93) 99 I/O 02/23/17 02/23/17 02/23/17 02/24/17 02/24/17 02/24/17 07:00 15:00 23:00 07:00 15:00 23:00 Intake Total 2000 ml 200 ml 900 ml Balance 2000 ml 200 ml 900 ml Intake Oral 900 ml IV Total 2000 ml 200 ml # Voids 3 Result Diagram: 02/24/17 0616 02/24/17 0616 Objective Remarks GENERAL: This is a well-nourished, well-developed patient, in no apparent distress. CARDIOVASCULAR: Regular rate and rhythm without murmurs, gallops, or rubs. RESPIRATORY: Clear to auscultation. Breath sounds equal bilaterally. No wheezes , rales, or rhonchi. GASTROINTESTINAL: Abdomen soft, non-tender, nondistended. Normal active bowel sounds MUSCULOSKELETAL: Extremities without clubbing, cyanosis, or edema. NEURO: Alert & Oriented x4 to person, place, time, situation. Moves all ext x4 A/P Problem List: (1) Narcotic abuse ICD Code: F11.10 - Opioid abuse, uncomplicated Status: Acute Plan: Patient is now in recovery of her quest no narcotics be given. She is requested NSAIDs to be given with her Pepcid (2) Pyelonephritis ICD Code: N12 - Tubulo-interstitial nephritis, not specified as acute or chronic Plan: Secondary to group B strep, continue cefepime, DC vancomycin In January patient was found to have 1.8cm left UPJ stone a stent is in place, she was unable to obtain outpatient assistance to schedule lithotripsy and stone extraction Repeat urology consult pending (3) Hydronephrosis ICD Code: N13.30 - Unspecified hydronephrosis Plan: Appears to be the same since January Lori Swanson MD Feb 24, 2017 12:55
[2017-02-24 13:10] VITALS: O2SAT 100
[2017-02-24] MEDS: KETOROLAC TROMETHAMINE 30 MG/ML (IVP) VIAL IV PUSH PRN ×2 (13:18→21:29)
--- NOTE | 2017-02-24 15:07 | MB ---
cc: ARPIT CURRAN MD DATE OF CONSULTATION: 02/24/2017 REASON FOR CONSULTATION 1. Left kidney stone status post cystoscopy, left ureteral stent insertion. 2. UTI. HISTORY OF PRESENT ILLNESS The patient is a 31-year-old male with history of kidney stones, status post cystoscopy and stent placement back in November and presented to [facility] last night with fever, headaches, blurry vision for the last several days. She also was complaining of left flank pain. CT of abdomen and pelvis without contrast was performed which showed left stent in good position as well as a 1.8 cm left UPJ stone. She was admitted for pain control and IV antibiotics and urology was consulted. She has seen Dr. Ruth recently who has scheduled for her to have surgery in March for treatment of both her stent and her stone. However, due to the fever and pain she was having the last few days she came to the emergency department for further evaluation. Her pain is improved today and denies dysuria, hematuria, nausea or vomiting. However, she is taking ibuprofen and Toradol [id number]. REVIEW OF SYSTEMS See HPI, all systems reviewed otherwise are negative. PAST HISTORY Significant for: 1. Kidney stones. 2. Bipolar disorder. 3. UTIs. 4. IV drug abuse. 5. MRSA. SOCIAL HISTORY 1. She has had a cystoscopy with left ureteral stent. 2. She has had surgery on her right arm. 3. LEEP procedure. MEDICATIONS Active medications include: 1. Pyridium. 2. Trileptal. 3. Abilify. ALLERGIES PENICILLIN, AMOXICILLIN. SOCIAL HISTORY History of IV drug abuse, quite about a year ago. Tobacco half pack per day. Denies any alcohol use. FAMILY HISTORY Denies genitourinary disease or nephrolithiasis. PHYSICAL EXAMINATION VITAL SIGNS: Temperature 97.9, pulse 79, respiratory rate 17, blood pressure 111/68, sating 97% on room air. GENERAL: She is alert and oriented x 3, no apparent distress, pleasant, cooperative lady who appears her stated age. HEENT: Head is normocephalic, atraumatic. Neck is supple. Trachea is midline. No JVD. Eyes: No scleral icterus. Extraocular muscles intact. External hearing is normal. Nares are normal. LUNGS: Nonlabored respirations. No wheezes, rales or rhonchi. HEART: Regular rhythm. No murmurs, gallops, rubs. ABDOMEN: Abdomen soft, nontender, nondistended. Positive bowel sounds. GENITOURINARY: No CVA tenderness bilaterally. PELVIC: Not indicated at this time. EXTREMITIES: Nontender. No clubbing, cyanosis or edema. PSYCHE: Normal affect, appropriate when answering questions. SKIN: No ulcers or rashes. Does have a tattoo on her neck that is visible. NEURO: Cranial nerves II-XII intact. Strength 5/5 in all four extremities. LABORATORY DATA White count 7.7, hemoglobin 11.1, hematocrit 32.3, platelet count 199 count. Sodium 139, potassium 3.5, chloride 108, bicarb 24.3, creatinine 0.56, BUN 8. Lactic acid 2. Urine showed moderate blood, large leukocyte esterase. Urine culture is currently pending. IMAGING STUDIES CT of abdomen and pelvis without contrast images were reviewed, agree with radiologist report. The patient has a stent that is in good position from her left kidney to her bladder as well as 1.8 cm proximal ureteral stone, no evidence of any hydronephrosis. ASSESSMENT The patient is a 31-year-old female with history of known left kidney stone status post cystoscopy and stent placement back in November by Dr. Bear, who presents with fevers, flank pain and headaches, presenting with urinary tract infection and stable kidney stone. PLAN 1. Recommend continuing antibiotics. She can then continue antibiotics until cultures are final and then switched to oral. 2. Pain control. 3. She can follow up as scheduled with Dr. Ruth for her surgery. MD JUANJOSE Freire/PAM /1:27 PM /2:28 PM
[2017-02-24 16:00] VITALS: BP 117/69; PULSE 84; RESP 17; TEMP 96.4; O2SAT 99
[2017-02-24] MEDS: IBUPROFEN 600 MG TAB PO PRN (17:19)
[2017-02-24 20:00] VITALS: BP 111/66; PULSE 92; RESP 20; TEMP 98.9; O2SAT 95
[2017-02-25] VITALS: BP 109/58; PULSE 89; RESP 20; TEMP 99.3; O2SAT 90
[2017-02-25] MEDS: CEFEPIME INJ 1,000 MG in SODIUM CHLORIDE 0.9% INJ 100 ML IV SCH ×2 (01:55→09:22)
[2017-02-25 03:49] VITALS: TEMP 102
[2017-02-25] MEDS: IBUPROFEN 600 MG TAB PO PRN (04:48)
[2017-02-25 05:06] VITALS: TEMP 100.1
[2017-02-25 08:00] VITALS: BP 118/68; PULSE 66; RESP 16; TEMP 97.2; O2SAT 97
[2017-02-25] MEDS: SODIUM CHLOR 0.9% 1000 ML INJ 1,000 ML IV SCH (08:00)
[2017-02-25] MEDS ORDERED: [UNRECOGNIZED DRUG - REMARK] ONE (08:45)
[2017-02-25] MEDS: NICOTINE 14 MG/24 HR PATCH T-DERMAL SCH (09:00)
[2017-02-25] MEDS: ARIPiprazole 5 MG TAB PO SCH (09:00)
[2017-02-25] MEDS: TAMSULOSIN HCL 0.4 MG CAP PO SCH (09:00)
[2017-02-25] MEDS: FAMOTIDINE 20 MG TAB PO SCH (09:00)
[2017-02-25] MEDS: REMOVE OLD PATCH T-DERMAL SCH (09:00)
[2017-02-25] MEDS ORDERED: REMOVE OLD PATCH T-DERMAL SCH (09:00)
[2017-02-25] MEDS: SODIUM CHLORIDE 0.9% FLUSH 10 ML FLUSH IV FLUSH SCH (09:21)
[2017-02-25] MEDS: DOCUSATE SODIUM 50 MG/SENNA 8.6 MG TAB PO SCH (09:22)
[2017-02-25] MEDS: OXcarbazepine 300 MG TAB PO SCH (09:22)
[2017-02-25] MEDS: KETOROLAC TROMETHAMINE 30 MG/ML (IVP) VIAL IV PUSH PRN (09:25)
[2017-02-25] MEDS ORDERED: CLIN300C5 PO (11:39)
--- NOTE | 2017-02-25 11:39 | HHI.DCPOC ---
Discharge Care Plan Diagnosis: (1) Pyelonephritis (2) Sepsis Goals to Promote Your Health * To prevent worsening of your condition and complications * To maintain your health at the optimal level Directions to Meet Your Goals Take your medications as prescribed Follow your dietary instruction Follow activity as directed Keep your appointments as scheduled Take your immunizations and boosters as scheduled If your symptoms worsen call your PCP, if no PCP go to Urgent Care Center or Emergency Room Smoking is Dangerous to Your Health. Avoid second hand smoke Call the 24-hour hour crisis hotline for domestic abuse at Lori Swanson MD Feb 25, 2017 11:39
--- NOTE | 2017-02-25 11:41 | HHI.DS ---
Discharge Summary Admission Date Feb 24, 2017 at 12:57 Discharge Date: Feb 25, 2017 Admitting Diagnosis Sepsis, Pyelonephritis. (1) Narcotic abuse ICD Code: F11.10 - Opioid abuse, uncomplicated Status: Acute (2) Pyelonephritis ICD Code: N12 - Tubulo-interstitial nephritis, not specified as acute or chronic (3) Hydronephrosis ICD Code: N13.30 - Unspecified hydronephrosis Procedures none Brief History - From Admission Patient is a 31-year-old female. Who presented to the emergency department here at [facility] with a fever. Patient has history of kidney infections. And has history of a urological stent placement. Now comes complaining of pain in the left back and fevers patient was found to have a urinary tract infection and pyelonephritis and hydronephrosis. Urology will be consult and patient will be admitted. Patient does have a past medical history of MRSA in the past as well as tobacco abuse and IV drug abuse and history of kidney infections. As well as bipolar issues has also had an orthopedic surgery on her right arm with rods and screws. Patient states she is Still smoking CBC/BMP: 02/24/17 0616 02/24/17 0616 Significant Findings Laboratory Tests Test 02/23/17 11:59 02/23/17 12:00 02/24/17 06:16 Urine Turbidity HAZY (CLEAR) Urine Protein 30 mg/dL (NEG-TRACE) Urine Occult Blood MOD (NEG) Urine Leukocyte Esterase LARGE (NEG) Urine RBC 68 /hpf (0-3) Urine Bacteria OCC /hpf (NONE) Urine Mucus FEW /lpf (OCC) White Blood Count 12.0 TH/MM3 (4.0-11.0) Neutrophils (%) (Auto) 78.9 % (16.0-70.0) 75.2 % (16.0-70.0) Monocytes (%) (Auto) 9.3 % (0.0-8.0) 10.7 % (0.0-8.0) Neutrophils # (Auto) 9.4 TH/MM3 (1.8-7.7) 8.1 TH/MM3 (1.8-7.7) Monocytes # (Auto) 1.1 TH/MM3 (0-0.9) 1.1 TH/MM3 (0-0.9) Albumin 3.1 GM/DL (3.4-5.0) 2.5 GM/DL (3.4-5.0) Calcium Level 8.4 MG/DL (8.5-10.1) 8.0 MG/DL (8.5-10.1) Phosphorus Level 1.8 MG/DL (2.5-4.9) 1.9 MG/DL (2.5-4.9) Estimat Glomerular Filtration Rate 73 ML/MIN (>89) Red Blood Count 3.62 MIL/MM3 (4.00-5.30) Hemoglobin 11.1 GM/DL (11.6-15.3) Hematocrit 32.3 % (35.0-46.0) Aspartate Amino Transf (AST/SGOT) 11 U/L (15-37) Chloride Level 108 MEQ/L (98-107) Imaging Last Impressions Renal Ultrasound 02/23/17 0000 Signed Impressions: Service Date/Time: Thursday, February 23, 2017 16:26 - CONCLUSION: 1. Mild left hydronephrosis. Left lower pole calculus. 2. Right kidney within normal limits. Chino Beth MD Abdomen/Pelvis CT 02/23/17 0000 Signed Impressions: Service Date/Time: Thursday, February 23, 2017 12:55 - CONCLUSION: 1. Double-J stent the left in good position. Stone remains and pelvis 2. No other abnormality appreciated. Maykel Stevens MD FACR PE at Discharge GENERAL: This is a well-nourished, well-developed patient, in no apparent distress. CARDIOVASCULAR: Regular rate and rhythm without murmurs, gallops, or rubs. RESPIRATORY: Clear to auscultation. Breath sounds equal bilaterally. No wheezes , rales, or rhonchi. GASTROINTESTINAL: Abdomen soft, non-tender, nondistended. Normal active bowel sounds MUSCULOSKELETAL: Extremities without clubbing, cyanosis, or edema. NEURO: Alert & Oriented x4 to person, place, time, situation. Moves all ext x4 Pt update on day of discharge Patient doing well. Ambulatory, fever 102 however patient feels well and will like to go home to continue treatment of fever with Tylenol and Advil as she is doing in the hospital Discharge plan discussed with patient and nursing team Hospital Course This patient was seen and evaluated for sepsis secondary to pyelonephritis. She did improve with IV antibiotics. She was found to have group B strep and discharged on oral antibiotics after IV cefepime was prescribed. She does have a penicillin allergy. Susceptibilities for the strep were sent. Patient continued to improve although she did have a bit of discharge is quite a respiratory alert and oriented without further discomfort. She was seen by urology recommended for outpatient evaluation due to her stents and stones Pt Condition on Discharge: Good Discharge Disposition: Discharge Home Discharge Time: <= 30 minutes Discharge Instructions DIET: Follow Instructions for: As Tolerated, No Restrictions Activities you can perform: Regular-No Restrictions Follow up Referrals: Urology - 2 Weeks with Jaspreet Ruth DO New Medications: Clindamycin (Clindamycin) 300 Mg Cap 600 MG PO Q8H for Infection, #10 CAP 0 Refills Continued Medications: Aripiprazole (Abilify) 2 Mg Tab 5 MG PO DAILY, #30 TAB 0 Refills Oxcarbazepine (Trileptal) 300 Mg Tab 300 MG PO DAILY for Seizure Control, #30 TAB 0 Refills Oxcarbazepine (Trileptal) 300 Mg Tab 300 MG PO BID for Seizure Control, #60 TAB 0 Refills Phenazopyridine (Pyridium) 100 Mg Tab 100 MG PO Q8H PRN for DYSURIA, #30 TAB 0 Refills Lori Swanson MD Feb 25, 2017 11:41
[2017-02-25 12:00] VITALS: BP 117/75; PULSE 63; RESP 17; TEMP 97.5; O2SAT 98
[2017-02-26] MEDS ORDERED: LEVA500T33 PO (13:09)
[2017-03-04] MEDS ORDERED: BACT800T5 PO (16:20)
== END 2017-02-25 12:43 | disposition home or self-care (01) | DRG 872 ==
LOC: NEPE 11:39 → NEDA 15:07 → INTOOBSV 15:07 → N07A 16:54 → OBSVTOIN 02-24 12:57
PROVIDERS: ADMIT Hospitalist; ATTEND Hospitalist
DX: A40.1 Sepsis due to streptococcus, group B (principal); N13.6 Pyonephrosis; F11.10 Opioid abuse, uncomplicated; F31.9 Bipolar disorder, unspecified; F17.200 Nicotine dependence, unspecified, uncomplicated; Z88.0 Allergy status to penicillin; Z86.14 Personal history of Methicillin resistant Staphylococcus aureus infection
CPT/HCPCS: 74176; 76775; 76937; 80053; 81001; 83036; 83605; 83735; 84100; 84439; 84443; 84703; 85025; 85610; 85730; 86403; 87040; 87086; 87186; 87804; 93005; 94150; 96361; 96365; G0378; J0692; J0744; J1885; J3370; J7030; J7050

== ENCOUNTER → 2017-03-19 | Day surgery (SDC) | payer OTHER ==
[~2017-03-19] VITALS: Ht 175.3 cm; Wt 72.2 kg
[~2017-03-19] MED LIST changes: +*HYDROmorphone PF 1 MG VIAL PERIprocedural Use ONLY ONE; +*MEPERIDINE 25 MG INJ VIAL PERIprocedural Use ONLY ONE; +*diphenhydrAMINE HCL 50 MG/ML VIAL PERIprocedural Use ONLY ONE; -ARIP2 PO; +CEPH-460 PO; +CHLORHEXIDINE GLUCONATE 2 % 1 PACK (2 CLOTHS) TOPICAL PRN; +CLAR10CA3 PO; +DEXAMETHASONE SOD PHOS 4 MG/ML VIAL IV ONE; +DIFL100T PO; +DO NOT ADM ANY ANTICOAGULANT DRUGS PRN; +KETOROLAC TROMETHAMINE 30 MG/ML (IVP) VIAL IV PUSH ONE; +KETOROLAC TROMETHAMINE 30 MG/ML (IVP) VIAL IV PUSH PRN; +KETOROLAC TROMETHAMINE 30 MG/ML (IVP) VIAL ONE; +LACTATED RINGER'S 1000 ML IV PRN; +LIDOCAINE HCL 1% PF 5 ML SYRINGE OTHER ONE; +METOPROLOL TARTRATE 25 MG TAB PO PRN; +MIDAZOLAM HCL 2 MG/2 ML VIAL ONE; +ONDANSETRON HCL 4 MG/2 ML VIAL IV ONE; +ONDANSETRON HCL 4 MG/2 ML VIAL IV PUSH PRN; -PHEN0.4T PO; +PHENYLEPH/NS 1000 MCG/10 ML SYR IV ONE; +POVIDONE IODINE 5% (ANTISEPSIS KIT) 4 APPLICATIONS EACH NARE PRN; +PROPOFOL 200 MG/20 ML AMP IV ONE; +PROPOFOL 500 MG/50 ML INJ 50 ML ONE; +SODIUM CHLORID 0.9% 500 ML IV PRN; +TRIL150T PO; +VANCOMYCIN 1000 MG/NS 250 ML IV SCH; +diphenhydrAMINE HCL 50 MG/ML VIAL ONE
--- NOTE | 2017-03-19 06:12 | RADRPT ---
EXAM DATE/TIME: 03/19/2017 05:54 [facility] COMPARISON: No previous studies available for comparison. INDICATIONS : Pre op lithotripsy. MEDICAL HISTORY : None. SURGICAL HISTORY : None. ENCOUNTER: Initial ACUITY: 1 day PAIN SCORE: 0/10 LOCATION: Bilateral abdomen FINDINGS: There is a left ureteral stent in place. There is a 1.3 cm stone seen over the left renal pelvis. The bowel gas pattern is normal. The bony structures are intact. CONCLUSION: Left renal stone and left ureteral stent. Dilan Mascorro MD on March 19, 2017 at 6:08 Board Certified Radiologist. This report was verified electronically.
--- NOTE | 2017-03-19 08:52 | PD.OP ---
Operative Report Date of Surgery: Mar 19, 2017 Preoperative Diagnosis: 1.3 cm left renal stone Postoperative Diagnosis: Same Procedure: Left extracorporeal shockwave lithotripsy Anesthesia: Gen. LMA Surgeon: Jaspreet Ruth [place] Operator(s): None Resident Surgeon: None Operation and Findings: 31-year-old female presents with a history of a 1.3 cm left renal stone with indwelling left ureteral stent. She elected to undergo left extraportal shockwave lithotripsy. Risk and benefits discuss preoperative she is willing to proceed. The patient was brought to the operating room and identified by myself as Gayatri Buchanan. She was placed on the operating table in the supine position, received preprocedure antibiotics and general LMA anesthesia was administered. Under fluoroscopic imaging guidance the stone was localized in the left kidney. ESWL therapy commenced and she received a total 2500 shocks with partial fragmentation of the stone visualized. She tolerated the procedure well follow-up in the clinic in 2 weeks and obtain a KUB x-ray prior. Jaspreet Ruth DO Mar 19, 2017 08:51
[2017-03-19 10:29] VITALS: BP 100/67; PULSE 72; RESP 16; TEMP 97.8; O2SAT 99
== END | disposition home or self-care (01) ==
LOC: HSDC 05:37
PROVIDERS: ATTEND Urology
DX: N20.0 Calculus of kidney (principal)
CPT/HCPCS: 00873; 50590; 74018; J1100; J1170; J1200; J1885; J2175; J2250; J2370; J2405; J3370; J7050; J7120

== ENCOUNTER → 2017-04-03 | Outpatient (CLI) | payer OTHER ==
[~2017-04-03] MED LIST changes: -*HYDROmorphone PF 1 MG VIAL PERIprocedural Use ONLY ONE; -*MEPERIDINE 25 MG INJ VIAL PERIprocedural Use ONLY ONE; -*diphenhydrAMINE HCL 50 MG/ML VIAL PERIprocedural Use ONLY ONE; -CHLORHEXIDINE GLUCONATE 2 % 1 PACK (2 CLOTHS) TOPICAL PRN; -DEXAMETHASONE SOD PHOS 4 MG/ML VIAL IV ONE; -DO NOT ADM ANY ANTICOAGULANT DRUGS PRN; -KETOROLAC TROMETHAMINE 30 MG/ML (IVP) VIAL IV PUSH ONE; -KETOROLAC TROMETHAMINE 30 MG/ML (IVP) VIAL IV PUSH PRN; -KETOROLAC TROMETHAMINE 30 MG/ML (IVP) VIAL ONE; -LACTATED RINGER'S 1000 ML IV PRN; -LIDOCAINE HCL 1% PF 5 ML SYRINGE OTHER ONE; -METOPROLOL TARTRATE 25 MG TAB PO PRN; -MIDAZOLAM HCL 2 MG/2 ML VIAL ONE; -ONDANSETRON HCL 4 MG/2 ML VIAL IV ONE; -ONDANSETRON HCL 4 MG/2 ML VIAL IV PUSH PRN; -PHENYLEPH/NS 1000 MCG/10 ML SYR IV ONE; -POVIDONE IODINE 5% (ANTISEPSIS KIT) 4 APPLICATIONS EACH NARE PRN; -PROPOFOL 200 MG/20 ML AMP IV ONE; -PROPOFOL 500 MG/50 ML INJ 50 ML ONE; -SODIUM CHLORID 0.9% 500 ML IV PRN; -TRIL150T PO; -VANCOMYCIN 1000 MG/NS 250 ML IV SCH; -diphenhydrAMINE HCL 50 MG/ML VIAL ONE
--- NOTE | 2017-04-03 11:31 | RADRPT ---
EXAM DATE/TIME: 04/03/2017 11:13 [facility] COMPARISON: ABDOMEN KUB ONLY, March 19, 2017, 5:54. INDICATIONS : Left flank pain after lithotripsy two weeks ago. Pain during urination. MEDICAL HISTORY : None. SURGICAL HISTORY : None. ENCOUNTER: Initial ACUITY: 2 weeks PAIN SCORE: 4/10 LOCATION: Left flank FINDINGS: Supine view of the abdomen was performed. There are fragmented calculi in the left kidney. Left-sided nephroureteral stent in good position. No definite right sided renal calculi. CONCLUSION: 1. Fragmented left-sided renal calculi measuring 2-5 mm in size. Ismael Hidalgo MD on April 03, 2017 at 11:28 Board Certified Radiologist. This report was verified electronically.
== END ==
LOC: HRAD 10:40
PROVIDERS: ATTEND Urology
DX: N20.0 Calculus of kidney (principal)
CPT/HCPCS: 74018

== ENCOUNTER 2017-04-12 18:29 | Emergency (ER) | payer OTHER ==
[~2017-04-12] VITALS: Ht 175.3 cm; Wt 66.0 kg
[2017-04-12 18:33] VITALS: BP 110/80; PULSE 100; RESP 13; TEMP 97.6; O2SAT 95
[2017-04-12 19:47] LABS: AUTOMATED NEUTROPHIL # 3.9 TH/MM3 (1.8-7.7); BASOPHIL % 0.5 % (0.0-2.0); EOSINOPHIL # 0.4 TH/MM3 (0-0.4); EOSINOPHIL % 4.9 % (0.0-4.0); HEMATOCRIT 40.4 % (35.0-46.0); LYMPH % 33.1 % (9.0-44.0); LYMPHOCYTE # 2.6 TH/MM3 (1.0-4.8); MEAN CELL VOLUME 86.6 FL (80.0-100.0); MEAN CORPUSCULAR HGB CONC 34.7 % (32.0-36.0); MEAN PLATELET VOLUME 8.1 FL (7.0-11.0); MONO % 11.5 % (0.0-8.0); MONOCYTE # 0.9 TH/MM3 (0-0.9); PLATELET COUNT 238 TH/MM3 (150-450); RED BLOOD COUNT 4.67 MIL/MM3 (4.00-5.30); RED CELL DISTRIBUTION WIDTH 13.3 % (11.6-17.2); WHITE BLOOD COUNT 7.8 TH/MM3 (4.0-11.0)
[2017-04-12 19:58] LABS: ALBUMIN 3.7 GM/DL (3.4-5.0); AST (GOT) 38 U/L (15-37); BICARBONATE 27.8 MEQ/L (21.0-32.0); BLOOD UREA NITROGEN 8 MG/DL (7-18); CHLORIDE 99 MEQ/L (98-107); CREATININE 0.64 MG/DL (0.50-1.00); GLOMERULAR FILTRATION RATE 109 ML/MIN (>89); GLUCOSE,RANDOM 80 MG/DL (74-106); SODIUM (NA) 134 MEQ/L (136-145)
--- NOTE | 2017-04-12 19:58 | PD ---
HPI Chief Complaint: Psychiatric Symptoms Time Seen by Provider: 19:17 Travel History International Travel<30 days: No Contact w/Intl Traveler<30days: No Traveled to known affect area: No History of Present Illness HPI 31-year-old female that presents to the ED for evaluation of voluntary psych evaluation. Patient apparently was brought here by police voluntarily for evaluation. Patient apparently ingested some Xanax before coming unclear reason. Patient herself denies any suicidal or homicidal ideation. She states that she has a problem with polysubstance abuse and does use IV drugs. She denies any fevers chills or sweats. No chest pain or injury. She does appear to be somewhat somnolent on exam secondary to her intoxication. She is for the most part asking for psychiatric evaluation so she can be clean that she can go to a safe home. She denies any cuts on herself. She denies any chest pain or shortness of breath. No injuries or falls. Per patient she did use Xanax before coming. She denies any alcohol at this time. She denies any homicidal ideation. Allergies to amoxicillin. Symptoms appear to be worsening the past couple days secondary to polysubstance abuse. 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 PRECANCEROUS CELLS REMOVED ) Cardiovascular Problems: No Diabetes: No Diminished Hearing: No Endocrine: No Genitourinary: Yes (KIDNEY STONE AND STENT PLACEMENT) Hepatitis: Yes (HEP C) Hiatal Hernia: No Immune Disorder: No Kidney Stones: Yes Musculoskeletal: No Neurologic: No Psychiatric: Yes ( BIPOLAR ) Reproductive: No Respiratory: No Thyroid Disease: No Tetanus Vaccination: Unknown Influenza Vaccination: No ?: Unknown LMP: UNKNOWN Past Surgical History Abdominal Surgery: No AICD: No Body Medical Devices: RIGHT ARM TITANIUM TANMAY, STENT LEFT URETER Cardiac Surgery: No Ear Surgery: No Endocrine Surgery: No Eye Surgery: No Genitourinary Surgery: No Gynecologic Surgery: Yes (LEEP) Joint Replacement: No Oral Surgery: No Pacemaker: No Thoracic Surgery: No Other Surgery: Yes (ORTHAPEDIC SURGERY RT ARM, TANMAY AND SCREWS ) Social History Alcohol Use: No Tobacco Use: Yes (1 PPD) Substance Use: Yes (IVDA HEROIN and meth) Allergies-Medications (Allergen,Severity, Reaction): Coded Allergies: Penicillins (Verified Allergy, Unknown, 04/12/17) amoxicillin (Verified Allergy, Unknown, 04/12/17) Reported Meds & Prescriptions Reported Meds & Active Scripts Active No Active Prescriptions or Reported Medications Review of Systems ROS Limitations: Intoxication Except as stated in HPI: all other systems reviewed are Neg Physical Exam Exam Limitations: Intoxication Narrative GENERAL: SKIN: Warm and dry. HEAD: Atraumatic. Normocephalic. EYES: Pupils equal and round. No scleral icterus. No injection or drainage. ENT: No nasal bleeding or discharge. Mucous membranes pink and moist. Tongue is midline. No uvula deviation. NECK: Trachea midline. No JVD. CARDIOVASCULAR: Regular rate and rhythm. No murmurs, S3, S4. RESPIRATORY: No accessory muscle use. Clear to auscultation. Breath sounds equal bilaterally. GASTROINTESTINAL: Abdomen soft, non-tender, nondistended. Hepatic and splenic margins not palpable. MUSCULOSKELETAL: Extremities without clubbing, cyanosis, or edema. No obvious deformities. Full range of motion of the upper and lower extremities bilaterally. 2+ pulses bilaterally. NEUROLOGICAL: Awake and alert. No obvious cranial nerve deficits. Motor grossly within normal limits. Five out of 5 muscle strength in the arms and legs. Normal speech. PSYCHIATRIC: Intoxicated mood and affect; insight and judgment normal. Data Data Last Documented VS Vital Signs Date Time Temp Pulse Resp B/P (MAP) Pulse Ox O2 Delivery O2 Flow Rate FiO2 04/12/17 18:33 97.6 100 13 110/80 (90) 95 Orders Orders Complete Blood Count With Diff (04/12/17 19:18) Comprehensive Metabolic Panel (04/12/17 19:18) Thyroid Stimulating Hormone (04/12/17 19:18) Psych Screen (04/12/17:18) Drug Screen, Random Urine (04/12/17:18) Alcohol (Ethanol) (04/12/17 19:18) Salicylates (Aspirin) (04/12/17 19:18) Tylenol (Acetaminophen) (04/12/17 19:18) Potassium Chloride (Kcl) (04/12/17 20:15) Ed Discharge Order (04/12/17 22:19) Labs Laboratory Tests Test 04/12/17 19:00 White Blood Count 7.8 TH/MM3 Red Blood Count 4.67 MIL/MM3 Hemoglobin 14.0 GM/DL Hematocrit 40.4 % Mean Corpuscular Volume 86.6 FL Mean Corpuscular Hemoglobin 30.0 PG Mean Corpuscular Hemoglobin Concent 34.7 % Red Cell Distribution Width 13.3 % Platelet Count 238 TH/MM3 Mean Platelet Volume 8.1 FL Neutrophils (%) (Auto) 50.0 % Lymphocytes (%) (Auto) 33.1 % Monocytes (%) (Auto) 11.5 % Eosinophils (%) (Auto) 4.9 % Basophils (%) (Auto) 0.5 % Neutrophils # (Auto) 3.9 TH/MM3 Lymphocytes # (Auto) 2.6 TH/MM3 Monocytes # (Auto) 0.9 TH/MM3 Eosinophils # (Auto) 0.4 TH/MM3 Basophils # (Auto) 0.0 TH/MM3 CBC Comment DIFF FINAL Differential Comment Blood Urea Nitrogen 8 MG/DL Creatinine 0.64 MG/DL Random Glucose 80 MG/DL Total Protein 7.7 GM/DL Albumin 3.7 GM/DL Calcium Level 9.0 MG/DL Alkaline Phosphatase 83 U/L Aspartate Amino Transf (AST/SGOT) 38 U/L Alanine Aminotransferase (ALT/SGPT) 38 U/L Total Bilirubin 0.4 MG/DL Sodium Level 134 MEQ/L Potassium Level 3.0 MEQ/L Chloride Level 99 MEQ/L Carbon Dioxide Level 27.8 MEQ/L Anion Gap 7 MEQ/L Estimat Glomerular Filtration Rate 109 ML/MIN Thyroid Stimulating Hormone 3rd Gen 1.310 uIU/ML Salicylates Level 3.1 MG/DL Acetaminophen Level LESS THAN 2.0 MCG/ML Ethyl Alcohol Level LESS THAN 3 MG/DL MDM Medical Decision Making Medical Screen Exam Complete: Yes Emergency Medical Condition: Yes Medical Record Reviewed: Yes Interpretation(s) CBC Diagram 04/12/17 19:00 Differential Diagnosis Depression versus suicidal ideation versus anxiety versus adjustment disorder versus mood disorder versus bipolar disorder versus schizophrenia versus paranoid disorder versus psychosis versus substance abuse versus alcohol abuse versus alcohol induced psychosis versus homicidality addition versus cutting versus personality disorder Narrative Course 31-year-old female that presents to the ED for evaluation of psychiatric evaluation. Patient was properly examined and was found to have signs and symptoms consistent with psychiatric illness. No sign of acute medical distress. Likely secondary to narcotic abuse. Patient has been here with similar symptoms in the past. Patient he only for psychiatric eval. Labs and physical exam are reassuring at this time. She does appear to have signs of IV drug abuse. I do not see any signs of infection at this time. Protecting her airway. This time labs were done and were essentially unremarkable other than for substance abuse. Patient was medically clear. Okay to be seen by psych. Mental health screening was discussed with the patient. Psychiatry evaluated the patient and spoke with the patient in length about following up with the [facility] for detox. Patient agrees with this plan. Patient is not suicidal or homicidal this time. Patient agrees with follow-up outpatient. Patient was given information for [facility]. See ED worsening symptoms. Follow with PCP. Diagnosis Primary Impression: Narcotic abuse Referrals: [facility] Patient Instructions: General Instructions Additional Instructions: Follow with [facility]. See ED worsening symptoms. Patient was medically cleared. Med/Other Pt SpecificInfo: No Change to Meds Scripts No Active Prescriptions or Reported Meds Disposition: 01 DISCHARGE HOME Condition: Stable Arian Ballard Apr 12, 2017 19:58
[2017-04-12 19:59] LABS: ALT (GPT) 38 U/L (10-53)
[2017-04-12 20:09] LABS: ALKALINE PHOSPHATASE 83 U/L (45-117); TOTAL BILIRUBIN ADULT 0.4 MG/DL (0.2-1.0); TOTAL PROTEIN 7.7 GM/DL (6.4-8.2)
[2017-04-12 20:14] LABS: ACETAMINOPHEN LESS THAN 2.0 MCG/ML (10.0-30.0)
[2017-04-12] MEDS ORDERED: POTASSIUM CHLORIDE 20 MEQ CONTROLLED RELEASE TAB PO ONE (20:15)
[2017-04-12 23:36] VITALS: BP 112/68
== END 2017-04-12 23:39 | disposition home or self-care (01) ==
LOC: NEPC 18:29
DX: F19.129 Other psychoactive substance abuse with intoxication, unspecified (principal); F31.9 Bipolar disorder, unspecified; F17.210 Nicotine dependence, cigarettes, uncomplicated; F11.10 Opioid abuse, uncomplicated; Z88.0 Allergy status to penicillin
CPT/HCPCS: 80053; 80307; 84443; 85025; 99283

== ENCOUNTER 2017-04-23 02:21 | Emergency (ER) | payer OTHER ==
[~2017-04-23] VITALS: Ht 175.3 cm; Wt 60.0 kg
[2017-04-23 02:24] VITALS: BP 104/73; PULSE 95; RESP 16; TEMP 98.3; O2SAT 99
== END 2017-04-23 03:27 | disposition left against medical advice (07) ==
LOC: NED 02:21
DX: M79.604 Pain in right leg (principal); R60.9 Edema, unspecified
CPT/HCPCS: 99281

== ENCOUNTER 2017-04-23 11:20 | Emergency (ER) | payer OTHER ==
[2017-04-23 11:21] VITALS: BP 107/74; PULSE 88; RESP 18; TEMP 97.9; O2SAT 95
--- NOTE | 2017-04-23 12:03 | RADRPT ---
EXAM DATE/TIME: 04/23/2017 11:40 [facility] COMPARISON: ABDOMEN KUB ONLY, April 03, 2017, 11:13. INDICATIONS : Right ankle pain and swelling with no known injury. MEDICAL HISTORY : None. SURGICAL HISTORY : None. ENCOUNTER: Initial ACUITY: 3 days PAIN SCORE: 10/10 LOCATION: Right entire ankle. FINDINGS: There is diffuse soft tissue swelling. No acute fracture or retained foreign body is seen. Alignment is anatomic. CONCLUSION: Diffuse soft tissue swelling. No acute abnormality identified. Immanuel Stevens MD on April 23, 2017 at 12:01 Board Certified Radiologist. This report was verified electronically.
--- NOTE | 2017-04-23 12:14 | RADRPT ---
EXAM DATE/TIME: 04/23/2017 11:59 [facility] COMPARISON: No previous studies available for comparison. INDICATIONS : Right leg edema. MEDICAL HISTORY : Hepatitis C. Seizures. Kidney stones. Substance use. SURGICAL HISTORY : LEEP. Renal stent. Right arm surgery. ENCOUNTER: Initial ACUITY: 3 days PAIN SCORE: 3/10 LOCATION: Right leg. TECHNIQUE: Venous ultrasound of the leg was performed from the inguinal ligament to the proximal calf. Real-katt e, color Doppler and spectral tracing, compression and augmentation techniques were used. FINDINGS: There is normal compressibility of the deep venous system from the inguinal region to the proximal ca lf. No echogenic clot is seen in the lumen of the common femoral, femoral, popliteal, and posterior tibial veins. There is a normal response of the venous system to proximal and distal augmentation an d respiration. CONCLUSION: Normal examination. Dilan Em MD on April 23, 2017 at 12:12 Board Certified Radiologist. This report was verified electronically.
--- NOTE | 2017-04-23 13:09 | PD ---
HPI Chief Complaint: Injury Time Seen by Provider: 11:36 Travel History International Travel<30 days: No Contact w/Intl Traveler<30days: No Traveled to known affect area: No History of Present Illness HPI Patient is a 31-year-old female admitted IV drug abuser presents the emergency department for evaluation of right foot swelling and pain for the past few days , patient states she thinks she injected here as she recently had a relapse, she states she has been out of it for a few days and likely she injected her foot but she cannot remember. She denies any fever denies any nausea vomiting denies any belly pain or other swelling. She denies any injury. 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 PRECANCEROUS CELLS REMOVED ) Cardiovascular Problems: No Diabetes: No Diminished Hearing: No Endocrine: No Genitourinary: Yes (KIDNEY STONE AND STENT PLACEMENT) Hepatitis: Yes (HEP C) Hiatal Hernia: No Immune Disorder: No Kidney Stones: Yes Musculoskeletal: No Neurologic: No Psychiatric: Yes ( BIPOLAR ) Reproductive: No Respiratory: No Thyroid Disease: No ?: Not LMP: CURRENT Past Surgical History Abdominal Surgery: No AICD: No Body Medical Devices: RIGHT ARM TITANIUM TANMAY, STENT LEFT URETER Cardiac Surgery: No Ear Surgery: No Endocrine Surgery: No Eye Surgery: No Genitourinary Surgery: Yes (stent in kidney) Gynecologic Surgery: Yes (LEEP) Joint Replacement: No Oral Surgery: No Pacemaker: No Thoracic Surgery: No Other Surgery: Yes (TITANIUM TANMAY IN RIGHT ARM) Social History Alcohol Use: No Tobacco Use: Yes (1 PPD) Substance Use: Yes ("what ever I can get a hold of") Allergies-Medications (Allergen,Severity, Reaction): Coded Allergies: Penicillins (Verified Allergy, Unknown, 04/23/17) amoxicillin (Verified Allergy, Unknown, 04/23/17) Reported Meds & Prescriptions Reported Meds & Active Scripts Active No Active Prescriptions or Reported Medications Review of Systems Except as stated in HPI: all other systems reviewed are Neg Physical Exam Narrative GENERAL: Well-developed, well-nourished, no obvious distress peer SKIN: Focused skin assessment warm/dry. HEAD: Atraumatic. Normocephalic. EYES: Pupils equal and round. No scleral icterus. No injection or drainage. ENT: No nasal bleeding or discharge. Mucous membranes pink and moist. NECK: Trachea midline. No JVD. CARDIOVASCULAR: Regular rate and rhythm. No murmur appreciated. RESPIRATORY: No accessory muscle use. Clear to auscultation. Breath sounds equal bilaterally. GASTROINTESTINAL: Abdomen soft, non-tender, nondistended. Hepatic and splenic margins not palpable. MUSCULOSKELETAL: No obvious deformities. No clubbing. No cyanosis. There is some soft tissue edema over the dorsal, lateral, medial surfaces of the right ankle, there is also some erythema, no joint effusion that I can appreciate, there is also some edema over the tibia and fibula in the distal third of the lower leg. Pulses motor and sensory intact distally in all 4 extremities, the compartments are not tense and are actually soft. NEUROLOGICAL: Awake and alert. No obvious cranial nerve deficits. Motor grossly within normal limits. Normal speech. PSYCHIATRIC: Appropriate mood and affect; insight and judgment normal. Data Data Last Documented VS Vital Signs Date Time Temp Pulse Resp B/P (MAP) Pulse Ox O2 Delivery O2 Flow Rate FiO2 04/23/17 11:21 97.9 88 18 107/74 (85) 95 Orders Orders Ankle, Complete ([id number]) (04/23/17 ) Us Leg Venous Doppler (04/23/17 ) Complete Blood Count With Diff (04/23/17 11:31) Basic Metabolic Panel (Bmp) (04/23/17 11:31) Westergren Sedimentation Rate (04/23/17 11:31) Vascular Access Team Consult/P PRN (04/23/17 12:21) Vascular Poc Ultrasound (04/23/17 ) Asp:No Reaction To [place]/Vanc (Asp Crit (04/23/17 15:45) Asp: Does Not Meet Inpt Admit (Asp Crit: (04/23/17 15:45) Asp: Iv Antibiotics Admit Only (Asp Crit (04/23/17 15:45) Asp: Location Of [facility] Admin (Asp Crit: (04/23/17 15:45) [facility] ([facility] (04/23/17 15:45) [facility] Inj ([facility] Inj) (04/23/17 15:36) Ed Discharge Order (04/23/17 15:37) Acetaminophen (Tylenol) (04/23/17 16:45) Asp:No Reaction To [place]/Vanc (Asp Crit (04/23/17 17:15) Asp: Does Not Meet Inpt Admit (Asp Crit: (04/23/17 17:15) Asp: Iv Antibiotics Admit Only (Asp Crit (04/23/17 17:15) Asp: Location Of [facility] Admin (Asp Crit: (04/23/17 17:15) [facility] ([facility] (04/23/17 17:15) [facility] Inj ([facility] Inj) (04/23/17 17:03) Labs Laboratory Tests Test 04/23/17 14:10 White Blood Count 10.8 TH/MM3 Red Blood Count 4.99 MIL/MM3 Hemoglobin 15.0 GM/DL Hematocrit 44.7 % Mean Corpuscular Volume 89.5 FL Mean Corpuscular Hemoglobin 30.1 PG Mean Corpuscular Hemoglobin Concent 33.7 % Red Cell Distribution Width 13.4 % Platelet Count 208 TH/MM3 Mean Platelet Volume 8.1 FL Neutrophils (%) (Auto) 62.2 % Lymphocytes (%) (Auto) 24.5 % Monocytes (%) (Auto) 11.6 % Eosinophils (%) (Auto) 1.4 % Basophils (%) (Auto) 0.3 % Neutrophils # (Auto) 6.7 TH/MM3 Lymphocytes # (Auto) 2.7 TH/MM3 Monocytes # (Auto) 1.3 TH/MM3 Eosinophils # (Auto) 0.1 TH/MM3 Basophils # (Auto) 0.0 TH/MM3 CBC Comment AUTO DIFF Differential Comment AUTO DIFF CONFIRMED Platelet Estimate NORMAL Platelet Morphology Comment CLUMPED Erythrocyte Sedimentation Rate 25 mm/hr Blood Urea Nitrogen 7 MG/DL Creatinine 0.67 MG/DL Random Glucose 57 MG/DL Calcium Level 9.5 MG/DL Sodium Level 137 MEQ/L Potassium Level 3.4 MEQ/L Chloride Level 105 MEQ/L Carbon Dioxide Level 27.6 MEQ/L Anion Gap 4 MEQ/L Estimat Glomerular Filtration Rate 103 ML/MIN [facility] Medical Decision Making Medical Screen Exam Complete: Yes Emergency Medical Condition: Yes Differential Diagnosis Cellulitis, infectious arthritis unlikely, sepsis unlikely. Narrative Course Patient room to the emergency department, labs pending she certainly could be a [facility] candidate. Her labs were drawn by me under ultrasound guidance, unfortunately an IV could not be obtained by either me or multiple times by my nursing staff. Her labs are not septic and she certainly qualifies for [facility], a dose has been ordered, discussed with her need for follow-up with the primary care physician, nico [facility] for detox and substance abuse counseling. She was urged to discontinue the use of IV drugs, discussed return to ED criteria. She is stable for discharge Diagnosis Primary Impression: Cellulitis of foot Scripts No Active Prescriptions or Reported Meds Disposition: 01 DISCHARGE HOME Condition: Stable Robi Thomsa MD Apr 23, 2017 13:09
[2017-04-23 14:35] LABS: AUTOMATED NEUTROPHIL # 6.7 TH/MM3 (1.8-7.7); BASOPHIL % 0.3 % (0.0-2.0); EOSINOPHIL # 0.1 TH/MM3 (0-0.4); EOSINOPHIL % 1.4 % (0.0-4.0); HEMATOCRIT 44.7 % (35.0-46.0); LYMPH % 24.5 % (9.0-44.0); LYMPHOCYTE # 2.7 TH/MM3 (1.0-4.8); MEAN CELL VOLUME 89.5 FL (80.0-100.0); MEAN CORPUSCULAR HEMOGLOBIN 30.1 PG (27.0-34.0); MEAN CORPUSCULAR HGB CONC 33.7 % (32.0-36.0); MEAN PLATELET VOLUME 8.1 FL (7.0-11.0); MONO % 11.6 % (0.0-8.0); MONOCYTE # 1.3 TH/MM3 (0-0.9); NEUT % 62.2 % (16.0-70.0); PLATELET COUNT 208 TH/MM3 (150-450); RED BLOOD COUNT 4.99 MIL/MM3 (4.00-5.30); RED CELL DISTRIBUTION WIDTH 13.4 % (11.6-17.2); WHITE BLOOD COUNT 10.8 TH/MM3 (4.0-11.0)
[2017-04-23 14:37] LABS: BICARBONATE 27.6 MEQ/L (21.0-32.0); CALCIUM 9.5 MG/DL (8.5-10.1); CREATININE 0.67 MG/DL (0.50-1.00)
[2017-04-23] MEDS ORDERED: DALBAVANCIN INJ 1,500 MG in DEXTROSE 5% IN WATE 500 ML INJ 500 ML IV STA ×4 (15:36→17:03)
[2017-04-23] MEDS ORDERED: ASP: Location of Dalbavancin administration OTHER ONE ×2 (15:45→17:15)
[2017-04-23] MEDS ORDERED: MISCELLANEOUS PHARMACY INFORMATION XX ONE ×2 (15:45→17:15)
[2017-04-23] MEDS ORDERED: ASP: Does not meet inpatient admission criteria OTHER ONE ×2 (15:45→17:15)
[2017-04-23] MEDS ORDERED: ASP: Only reason for admit - IV antibiotics OTHER ONE ×2 (15:45→17:15)
[2017-04-23] MEDS ORDERED: ASP: No known hypersensitivity to Vanco, Telavancin, Dalbavancin OTHER ONE ×2 (15:45→17:15)
[2017-04-23] MEDS ORDERED: ACETAMINOPHEN 500 MG CPLT PO ONE (16:45)
== END 2017-04-23 18:50 | disposition home or self-care (01) ==
LOC: NEPD 11:20
DX: L03.115 Cellulitis of right lower limb (principal); F31.9 Bipolar disorder, unspecified; B19.20 Unspecified viral hepatitis C without hepatic coma; F17.210 Nicotine dependence, cigarettes, uncomplicated; Z88.0 Allergy status to penicillin; Z88.8 Allergy status to other drugs, medicaments and biological substances
CPT/HCPCS: 73610; 80048; 85025; 85652; 93971; 96365; 99285; J0875; J7060

== ENCOUNTER → 2017-06-12 | Day surgery (SDC) | payer OTHER ==
[~2017-06-12] MED LIST changes: +*MEPERIDINE 25 MG INJ VIAL PERIprocedural Use ONLY ONE; +ACETAMINOPHEN 1000 MG/100 ML 100 ML IV ONE; +BELLADONNA ALKALOIDS/OPIUM 60 MG SUPP RECTAL ONE; +BELLADONNA ALKALOIDS/OPIUM 60 MG SUPP RECTAL SCH; -CEPH-460 PO; +CHLORHEXIDINE GLUCONATE 2 % 1 PACK (2 CLOTHS) TOPICAL PRN; -CLAR10CA3 PO; +DEXAMETHASONE SOD PHOS 4 MG/ML VIAL IV ONE; -DIFL100T PO; +DO NOT ADM ANY ANTICOAGULANT DRUGS PRN; +GENTAMICIN INJ 240 MG in SODIUM CHLORIDE 0.9% INJ 100 ML IV ONE; +GLYCOPYRROLATE 1 MG/5 ML SYRINGE IV PUSH ONE; +LACTATED RINGER'S 1000 ML INJ 1,000 ML IV ONE; +LACTATED RINGER'S 1000 ML IV PRN; +LIDOCAINE HCL 1% PF 5 ML SYRINGE OTHER ONE; +LORazepam 2 MG/ML VIAL ONE; +METOPROLOL TARTRATE 25 MG TAB PO PRN; +MIDAZOLAM HCL 2 MG/2 ML VIAL ONE; +MORPHINE SULFATE 4 MG/ML INJ IV PRN; +NEOSTIGMINE 5 MG/5 ML SYRINGE IV PUSH ONE; +ONDANSETRON HCL 4 MG/2 ML VIAL IV ONE; +ONDANSETRON HCL 4 MG/2 ML VIAL IV PUSH PRN; +POVIDONE IODINE 5% (ANTISEPSIS KIT) 4 APPLICATIONS EACH NARE PRN; +PROPOFOL 200 MG/20 ML AMP IV ONE; +ROCURONIUM INJ 50 MG/5 ML SYRINGE IV PUSH ONE; +SODIUM CHLORID 0.9% 500 ML IV PRN; +TRIL150T PO; -TRIL300T PO; +VANCOMYCIN 1 GM/200 ML PREMIX ON-CALL IV SCH; +oxyCODONE/ACETAMINOPHEN 5 MG/325 MG TAB PO PRN
--- NOTE | 2017-06-12 11:34 | PD.OP ---
Operative Report Date of Surgery: Jun 12, 2017 Preoperative Diagnosis: Encrusted left retained ureteral stent Postoperative Diagnosis: Same Procedure: Cystoscopy with cystolitholopaxy, left ureteroscopy, left double-J stent removal with left double-J stent insertion Anesthesia: General LMA Surgeon: Jaspreet Ruth Threading Machine Tender(s): None Resident Surgeon: None Operation and Findings: 31-year-old female with history of left renal calculus who underwent left extrapleural shockwave lithotripsy in the past. Attempt was made to remove her stent earlier this week in the office which was unsuccessful due to encrustation. She has had this done approximately 6 months and was lost to follow-up. Decision made to bring the patient to the operating room to undergo cystoscopy with possible left ureteroscopy with laser lithotripsy and stent exchange. Risks and benefits were discussed preoperatively and she was willing to proceed. The patient was brought to the operating room and identified by myself that Gayatri Buchanan. She is placed in the dorsal lithotomy position, prepped and draped in usual sterile fashion, received preprocedure antibiotics and general LMA anesthesia was administered. 22 Iraqi cystoscope was inserted in the bladder and a large bladder stone was identified on the encrusted distal aspect of the stent within the bladder. The 200 m laser fiber was then used setting of 10 and 1000 and the stone at the end of the stent was broken up. The stent was then grasped with the alligator grasper but I was unable to remove it. The rigid ureteroscope was then passed up along the stent, however, I was unable to get to the area of where the stent encrustation was located on the proximal aspect of the stent. Therefore the ureteroscope was then removed. The cystoscope and was reinserted in the bladder and using alligator grasper, traction was applied to the stent. Eventually, the stent released and was able to slide out. A 0.35 sensor wire was then passed up into the kidney with a good curl. The rigid ureteroscope was then passed up along the wire to inspect for any residual stone fragments. None were identified. The cystoscope was then backloaded over a wire and a 6 Iraqi 22 cm stent was left in good position on the left side with the string taped to the suprapubic area. She will follow-up in 1 week to undergo stent pull in the office via the string. She tolerated the procedure well. Jaspreet Ruth DO Jun 12, 2017 11:34
[2017-06-12 12:50] VITALS: BP 127/87; PULSE 85; RESP 20; TEMP 98.3; O2SAT 100
== END | disposition home or self-care (01) ==
LOC: HSDC 08:02
PROVIDERS: ATTEND Urology
DX: N21.0 Calculus in bladder (principal)
CPT/HCPCS: 00910; 52318; 52332; C1769; C2617; J0131; J1100; J1580; J2060; J2175; J2250; J2270; J2405; J2710; J3010; J3370; J7120

== ENCOUNTER 2017-10-21 09:12 | Inpatient (IN) ==
[2017-10-21] MEDS ORDERED: Aztreonam Inj 2 GM in Sodium Chloride 0.9% Inj 100 ML IV.SIG STA (10:21)
[2017-10-21] MEDS ORDERED: Vancomycin Inj 1,000 MG in Sodium Chlor 0.9% Inj 250 ML IV.SIG STA (10:21)
--- NOTE | 2017-10-21 10:26 | ED ---
HPI General Chief complaint: Skin/Abscess/Foreign Body Stated complaint: right leg swollen/complaint Time Seen by Provider: 10/21/17 10:16 History of Present Illness HPI narrative: Patient comes to emergency department for evaluation right leg infection began approximately week ago. Patient states started off as a small pimple that ruptured had some pus drainage. Patient states that over the past 2 days became red and swollen. Patient states she was at a different ER yesterday but left AMA and she was told to not be allowed to have visitors while in the hospital. Patient reports fever yesterday of 103. Reports she is reformed IV drug abuser last using 2 months ago. Describes pain as burning- like in nature her right lower leg is worse with standing. Pain improves with rest. Patient denies any radiation of the pain. Denies . Related Data Home Medications Medication Instructions Recorded Confirmed No Known Home Medications 10/21/17 10/21/17 Allergies Allergy/AdvReac Type Severity Reaction Status Date / Time amoxicillin Allergy Unknown Rash Verified 10/21/17 10:41 Penicillins Allergy Unknown Rash Verified 10/21/17 10:41 Review of Systems ROS: all other systems reviewed are negative [facility] Medical History Medical History Encounter for removal of ureteral stent (Acute) IV drug user (Acute) Surgical History Surgical History H/O LEEP (Acute) History of surgery on arm (Acute) Social History Social History Substance History: Past History Second Hand Smoke Exposure: Yes Smoking Status: Current every day smoker Tobacco Type: Cigarettes How Often Do You Have a Drink Containing Alcohol: Never Recent Travel in [facility] within the Last 8 Weeks: No Recent Out of Country Travel within the Last 8 Weeks: No Exam Narrative Exam Narrative: GENERAL: Well-developed, well nourished, in no acute distress, and non-ill appearing. SKIN: Large area cellulitis right lower leg posterior calf from knee to ankle. Is induration without fluctuation. No drainage. Is tender to palpation. It is febrile. HEAD: Atraumatic. Normocephalic. EYES: Pupils equal and round. EOMI. No scleral icterus. No injection or drainage. ENT: No nasal bleeding or discharge. Mucous membranes pink and moist. NECK: Trachea midline. Supple. No nuclear rigidity. CARDIOVASCULAR: Dorsal pulses 2+, intact, and equal bilaterally. Capillary refill less than 2 seconds. RESPIRATORY: No accessory muscle use. No respiratory distress. MUSCULOSKELETAL: No obvious deformities. No clubbing. No cyanosis. 2+ edema right lower extremity. Full range of motion. NEUROLOGICAL: Awake and alert. No obvious cranial nerve deficits. Motor grossly within normal limits. Normal speech. PSYCHIATRIC: Appropriate mood and affect; insight and judgment normal. Course Consultations Consultation #1: Discussed patient with residents environmental assistant, who are agreeable to admit patient for Dr. Hartley. Time: 13:58 Initial Documented Vital Signs Temperature 98.0 F 10/21/17 09:24 Pulse Rate 110 H 10/21/17 09:24 Respiratory Rate 17 10/21/17 09:24 Blood Pressure 105/66 10/21/17 09:24 Pulse Oximetry 100 10/21/17 09:24 Last Documented Vital Signs Temperature 99.9 F H 10/21/17 16:00 Pulse Rate 100 H 10/21/17 16:00 Respiratory Rate 16 10/21/17 16:00 Blood Pressure 110/63 10/21/17 16:00 Pulse Oximetry 99 10/21/17 16:00 Medical Decision Making MDM Narrative Medical decision making narrative: Patient seen and examined. IV was established pediatric cardiac monitoring. Initial laboratory studies were ordered. Patient started on IV Azactam, IV Flagyl, and IV vancomycin for cellulitis. Patient was hydrated with IV fluids. Patient was given IV Toradol for pain. Discussed patient with Dr. Booker, who saw and evaluated the patient and is in agreement with plan of care disposition. Discussed all findings and plan of care patient is agreeable for admission. All questions were answered. Discussed patient with residents, is agreeable to admit the patient. Patient remained stable throughout ED course. Medical Screen Exam Complete: Yes Emergency Medical Condition: Yes Differential Diagnosis Differential Diagnosis: Abscess, cellulitis, sepsis, metabolic disturbance Lab Data Result diagrams: 10/21/17 11:41 10/21/17 11:41 Lab Results 10/21/17 10/21/17 10/21/17 Range/Units 11:41 11:41 11:41 WBC 11.6 H (4.0-11.0) th/mm3 RBC 4.27 (4.00-5.30) mil/mm3 Hgb 12.1 (11.6-15.3) gm/dL Hct 36.2 (35.0-46.0) % MCV 84.9 (80.0-100.0) fL MCH 28.3 (27.0-34.0) pg MCHC 33.3 (32.0-36.0) % RDW 14.6 (11.6-17.2) % Plt Count 180 (150-450) th/mm3 MPV 8.4 (7.0-11.0) fL Neut % (Auto) 68.8 (16.0-70.0) % Lymph % (Auto) 20.4 (9.0-44.0) % [place] % (Auto) 7.9 (0.0-8.0) % Eos % (Auto) 2.3 (0.0-4.0) % Baso % (Auto) 0.6 (0.0-2.0) % Neut # (Auto) 8.0 H (1.8-7.7) th/mm3 Lymph # (Auto) 2.4 (1.0-4.8) th/mm3 [place] # (Auto) 0.9 (0.0-0.9) th/mm3 Eos # (Auto) 0.3 (0.0-0.4) th/mm3 Baso # (Auto) 0.1 (0.0-0.2) th/mm3 WBC Differential . Differential Comment Auto diff final Sodium 139 (136-145) meq/L Potassium 3.6 (3.5-5.1) meq/L Chloride 103 (98-107) meq/L Carbon Dioxide 28.0 (21.0-32.0) meq/L Anion Gap 8 (5-15) meq/L BUN 17 (7-18) mg/dL Creatinine 0.70 (0.50-1.00) mg/dL Estimated GFR Greater than 89 (>89) mL/min POC Glucose (68-110) mg/dl Random Glucose 102 (74-106) mg/dL Lactic Acid 1.5 (0.4-2.0) mmol/L Calcium 8.8 (8.5-10.1) mg/dL Total Bilirubin 0.3 (0.2-1.0) mg/dL AST 13 L (15-37) U/L ALT 21 (10-53) U/L Alkaline Phosphatase 100 (45-117) U/L Total Protein 7.8 (6.4-8.2) g/dL Albumin 2.7 L (3.4-5.0) g/dL Urine Color (Yellw/Straw) Urine Clarity (Clear) Urine pH (5.0-8.5) Ur Specific [place] (1.002-1.035) Urine Protein (Neg-Trace) mg/dL Urine Glucose (UA) (Negative) mg/dL Urine Ketones (Negative) mg/dL Urine Occult Blood (Negative) Urine Nitrate (Negative) Urine Bilirubin (Negative) Urine Urobilinogen (Less than 2) mg/dL Ur Leukocyte Esterase (Negative) Urine RBC (0-3) /hpf Urine WBC (0-5) /hpf Ur Squamous Epith Cells (0-5) /hpf Urine Bacteria (None) /hpf Hyaline Casts (0-3) /lpf Urine Mucus (Occasional) /lpf Micro UA Comment Urine Culture Comments 10/21/17 10/21/17 Range/Units 11:41 11:52 WBC (4.0-11.0) th/mm3 RBC (4.00-5.30) mil/mm3 Hgb (11.6-15.3) gm/dL Hct (35.0-46.0) % MCV (80.0-100.0) fL MCH (27.0-34.0) pg MCHC (32.0-36.0) % RDW (11.6-17.2) % Plt Count (150-450) th/mm3 MPV (7.0-11.0) fL Neut % (Auto) (16.0-70.0) % Lymph % (Auto) (9.0-44.0) % [place] % (Auto) (0.0-8.0) % Eos % (Auto) (0.0-4.0) % Baso % (Auto) (0.0-2.0) % Neut # (Auto) (1.8-7.7) th/mm3 Lymph # (Auto) (1.0-4.8) th/mm3 [place] # (Auto) (0.0-0.9) th/mm3 Eos # (Auto) (0.0-0.4) th/mm3 Baso # (Auto) (0.0-0.2) th/mm3 WBC Differential Differential Comment Sodium (136-145) meq/L Potassium (3.5-5.1) meq/L Chloride (98-107) meq/L Carbon Dioxide (21.0-32.0) meq/L Anion Gap (5-15) meq/L BUN (7-18) mg/dL Creatinine (0.50-1.00) mg/dL Estimated GFR (>89) mL/min POC Glucose 135 H (68-110) mg/dl Random Glucose (74-106) mg/dL Lactic Acid (0.4-2.0) mmol/L Calcium (8.5-10.1) mg/dL Total Bilirubin (0.2-1.0) mg/dL AST (15-37) U/L ALT (10-53) U/L Alkaline Phosphatase (45-117) U/L Total Protein (6.4-8.2) g/dL Albumin (3.4-5.0) g/dL Urine Color Yellow (Yellw/Straw) Urine Clarity Cloudy H (Clear) Urine pH 5.0 (5.0-8.5) Ur Specific [place] 1.023 (1.002-1.035) Urine Protein 30 H (Neg-Trace) mg/dL Urine Glucose (UA) Negative (Negative) mg/dL Urine Ketones Negative (Negative) mg/dL Urine Occult Blood Negative (Negative) Urine Nitrate Negative (Negative) Urine Bilirubin Negative (Negative) Urine Urobilinogen 4 or greater (Less than 2) mg/dL Ur Leukocyte Esterase Small H (Negative) Urine RBC 2 (0-3) /hpf Urine WBC 17 H (0-5) /hpf Ur Squamous Epith Cells 18 (0-5) /hpf Urine Bacteria Moderate H (None) /hpf Hyaline Casts 2 (0-3) /lpf Urine Mucus Many H (Occasional) /lpf Micro UA Comment Culture indicated Urine Culture Comments Culture indicated Discharge Plan Discharge Disposition Patient Disposition: 30 Still Patient Discharge Condition Condition: Stable Discharge Details Diagnosis: Cellulitis Physicians Team ED Provider: Delma Booker ED Midlevel Provider: Jani Meyers Primary Care Provider: Primary Care Lucy Jolley Attending Provider: Terence Hartley Status ED Status: Left Department Discharge Information Discharge Date/Time: 10/21/17 15:13
[2017-10-21] MEDS ORDERED: Sod Chloride 0.9% Inj 1,000 ML IV.SIG SCH ×2 (10:30)
[2017-10-21] MEDS ORDERED: Sod Chloride 0.9% Inj 100 ML IV.SIG SCH (10:30)
[2017-10-21 12:07] LABS: Baso # (Auto) 0.1 th/mm3 (0.0-0.2); Baso % (Auto) 0.6 % (0.0-2.0); Eos # (Auto) 0.3 th/mm3 (0.0-0.4); Eos % (Auto) 2.3 % (0.0-4.0); Hematocrit 36.2 % (35.0-46.0); Hemoglobin 12.1 gm/dL (11.6-15.3); Lymph # (Auto) 2.4 th/mm3 (1.0-4.8); Lymph % (Auto) 20.4 % (9.0-44.0); Mean Corpuscular HGB Conc 33.3 % (32.0-36.0); Mean Corpuscular Hemoglobin 28.3 pg (27.0-34.0); Mean Corpuscular Volume 84.9 fL (80.0-100.0); Mean Platelet Volume 8.4 fL (7.0-11.0); Mono # (Auto) 0.9 th/mm3 (0.0-0.9); Mono % (Auto) 7.9 % (0.0-8.0); Neut % (Auto) 68.8 % (16.0-70.0); Platelet Count 180 th/mm3 (150-450); Red Blood Count 4.27 mil/mm3 (4.00-5.30); Red Cell Distribution Width 14.6 % (11.6-17.2); White Blood Count 11.6 th/mm3 (4.0-11.0)
[2017-10-21 12:15] LABS: Bacteria,Urine Moderate /hpf; Bilirubin,Urine Negative (Negative); Clarity,Urine Cloudy (Clear); Color,Urine Yellow (Yellw/Straw); Glucose,Urine (UA) Negative (Negative); Hyaline Casts,Urine 2 /lpf (0-3); Leukocyte Esterase,Urine Small (Negative); Mucus,Urine Many /lpf (Occasional); Nitrite,Urine Negative (Negative); Specific Gravity,Urine 1.023 (1.002-1.035); Squamous Epithelial Cell,Urine 18 /hpf (0-5); Urobilinogen,Urine 4 or Greater mg/dL (Less than 2)
[2017-10-21 12:28] LABS: Albumin 2.7 g/dL (3.4-5.0); Anion Gap 8 meq/L (5-15); Aspartate Aminotransferase 13 U/L (15-37); Blood Urea Nitrogen 17 mg/dL (7-18); Calcium 8.8 mg/dL (8.5-10.1); Chloride 103 meq/L (98-107); Glomerular Filtration Rate Greater Than 89 mL/min (>89); Glucose,Random 102 mg/dL (74-106); Potassium 3.6 meq/L (3.5-5.1); Sodium 139 meq/L (136-145)
[2017-10-21 12:29] LABS: Alanine Aminotransferase 21 U/L (10-53)
[2017-10-21 12:31] LABS: Alkaline Phosphatase 100 U/L (45-117); Total Protein 7.8 g/dL (6.4-8.2)
[2017-10-21] MEDS ORDERED: Ketorolac Inj 30 MG/ML (IVP) Vial IV.PUSH ONE (12:36)
[2017-10-21] MEDS ORDERED: Naloxone Inj 0.4 MG/ML Vial IV.PUSH PRN (14:34)
[2017-10-21] MEDS ORDERED: Vancomycin Consult Pharmacy OTHER PRN (14:43)
--- NOTE | 2017-10-21 15:13 | P.HPFP ---
History of Present Illness Primary Care Physician: No Primary Care Physician Chief Complaint: Right leg pain History of Present Illness: 31-year-old female with history of IV drug use presents with right leg pain. Patient states 2 weeks ago she noticed a pimple on her calf that was draining yellow bloody fluid. Since then it has become painful, warm, and enlarged. It became a lot worse overnight. Yesterday she started experiencing fever and chills. She went to [facility] where they did a ultrasound of the leg and found a collection of fluid. She received no medications at the hospital and left AMA because they would not allow her to have visitors. She said the pain has continued and it is mostly painful to walk. At rest it is a 5 out of 10 and goes to 10 out of 10 with walking. She describes it as a intermittent sharp pain. Denies any nausea vomiting or urinary symptoms. She has had skin infections in the past and said 2 years ago she had MRSA skin infection. She has a history of drug use and was using heroin until 2 months ago. She said she was clean for 2 months but then the pain was too strong and she used heroin 2 days ago into her arm. She usually injects into her arm and years ago into her legs in the past she has already used cocaine. Denies any alcohol use. Smokes 1 pack of cigarettes per day for the past 10 years. She is unemployed, lives at home with a roommate and 2 dogs. She has not had any dog bites or scratches. When patient was asked about her CODE STATUS at first she stated DNR when asked to explain her reasoning she became tearful and said she was not up to talking at that time. When offered help for her other medical needs besides her leg patient stated for now she would like to be full code but was not up for discussing her tearfulness. - Diagnosis (1) Right leg pain (2) Sepsis (3) Substance abuse (4) Pathological emotionality (5) Nutrition, metabolism, and development symptoms Review of Systems Constitutional: Reports chills, Reports fever(s) Ears, Nose, Mouth, and Throat: Denies headache(s) Cardiovascular: Denies chest pain, Denies shortness of breath Respiratory: Denies shortness of breath Gastrointestinal: Denies nausea, Denies vomiting Genitourinary: Denies painful urination, Denies urinary urgency Comments: right leg pain Neurologic: Denies dizziness, Denies headache(s) PMF - History History Provided By: Patient - Medical History Medical History: Medical History (Last Updated 10/21/17 @ 15:05 by Mary Ann Ohara MD, R1) Encounter for removal of ureteral stent IV drug user - Surgical History Surgical History: Surgical History (Last Updated 10/21/17 @ 15:04 by Mary Ann Ohara MD, R1) H/O LEEP History of surgery on arm - Tobacco History Tobacco Use In Past 30 Days: Yes Smoking Status: Current every day smoker Tobacco Type: Cigarettes - Alcohol History How Often Do You Have a Drink Containing Alcohol: Never - Substance Use History Substance History: Past History - Substance Use Type Heroin Status: Early Remission Route Used: Intravenously Reason for Use: Feels Good - Travel History Recent Travel in the [place] Within the Last 8 Weeks: No Recent Travel Out of the Country Within the Last 8 Weeks: No - Immunization History Tetanus Immunization: Unsure Hx Influenza Vaccine This Season: No Medications and Allergies Active Medications: Active Medications Acetaminophen (Tylenol) 650 mg PO Q6HR PRN PRN Reason: PAIN SCALE 1 TO 2 Hydrocodone Bitart/Acetaminophen ([place] 10/325) 1 tab PO Q4H PRN PRN Reason: PAIN SCALE 6 TO 10 Hydrocodone Bitart/Acetaminophen ([place] 5/325) 1 tab PO Q4H PRN PRN Reason: PAIN SCALE 3 TO 5 Al Hydroxide/Mg Hydroxide (Milk Of Magnesia Liq) 30 ml PO Q12H PRN PRN Reason: Mild Constipation Bisacodyl (Dulcolax Supp) 10 mg RECTAL DAILY PRN PRN Reason: SEVERE CONSITIPATION Enoxaparin Sodium (Lovenox Inj) 40 mg SQ Q24H C[facility] Sodium Chloride (Ns Inj) 1,000 mls @ 0 mls/hr IV.SIG .Q0M CHELSEY Last Infusion: 10/21/17 13:50 Dose: Infused Sodium Chloride (Ns Inj) 1,000 mls @ 0 mls/hr IV.SIG .Q0M CHELSEY Vancomycin/Sodium Chloride (Vancomycin Inj) 1 gm in 200 mls @ 200 mls/hr IV.SIG Q12H [facility] Lactulose (Lactulose Liq) 30 ml PO DAILY PRN PRN Reason: SEVERE CONSITIPATION Morphine Sulfate (Morphine Inj) 4 mg IV.PUSH Q3H PRN PRN Reason: BREAKTHROUGH PAIN Morphine Sulfate (Morphine Inj) 2 mg IV.PUSH ONCE ONE Stop: 10/21/17 15:04 Naloxone HCl (Narcan Inj) 0.4 mg IV.PUSH UNSCH PRN PRN Reason: SEE LABEL COMMENTS Ondansetron HCl (Zofran Inj) 4 mg IV.PUSH Q6H PRN PRN Reason: NAUSEA OR VOMITING Pharmacy Profile Note (Vancomycin Consult Pharmacy) 1 each OTHER UNSCH PRN PRN Reason: Pharmacy to dose Prednisone (Deltasone) 40 mg PO ONCE ONE Stop: 10/21/17 14:38 Senna/Docusate Sodium (Sofi-Colace) 1 tab PO BID [facility] Sennosides (Senokot) 17.2 mg PO Q12H PRN PRN Reason: Moderate Constipation Allergies Allergy/AdvReac Type Severity Reaction Status Date / Time amoxicillin Allergy Unknown Rash Verified 10/21/17 10:41 Penicillins Allergy Unknown Rash Verified 10/21/17 10:41 Home Medications Medication Instructions Recorded Confirmed Type No Known Home Medications 10/21/17 10/21/17 History Exam Vital signs: Vital Signs 10/21/17 09:24 10/21/17 11:49 Temperature 98.0 F Pulse Rate 110 H Respiratory Rate 17 Blood Pressure 105/66 Pulse Oximetry 100 98 Intake & Output 10/20/17 10/21/17 10/21/17 18:59 06:59 18:59 Intake Total 1350 / 1350 Balance 1350 / 1350 Weight 63.503 kg Intake: IV 1350 / 1350 NS Inj 1,000 ML @ Wide Open IV. 1000 / 1000 SIG .Q0M CHELSE[facility] Rx#:[id number] Vancomycin Inj 1,000 MG In NS 250 / 250 Inj 250 ML @ 250 mls/hr IV.SIG STAT STA Rx#:[id number] Flagyl 500 MG Inj 100 ML @ 100 100 / 100 mls/hr IV.SIG STAT STA Rx#: [id number] Narrative: GENERAL: SKIN: Warm and dry. HEAD: Atraumatic. Normocephalic. EYES: Pupils equal and round. No scleral icterus. No injection or drainage. ENT: No nasal bleeding or discharge. Mucous membranes pink and moist. NECK: Trachea midline. No JVD. CARDIOVASCULAR: Regular rate and rhythm. 2+ dorsalis pedis pulses bilaterally RESPIRATORY: No accessory muscle use. Clear to auscultation. Breath sounds equal bilaterally. GASTROINTESTINAL: Abdomen soft, non-tender, nondistended. Hepatic and splenic margins not palpable. MUSCULOSKELETAL: Scar on right arm. Right leg sore on calf 4cm non draining with surrounding erythema from ankle to knee. No erythema on medellin. Warm to touch. Tenderness to palpation. NEUROLOGICAL: Awake and alert. No obvious cranial nerve deficits. Motor grossly within normal limits. Five out of 5 muscle strength in the arms and legs. Normal speech. PSYCHIATRIC: Appropriate mood and affect; insight and judgment normal. Results - Labs Result diagrams: 10/21/17 11:41 10/21/17 11:41 Abnormal lab results 10/21/17 10/21/17 10/21/17 Range/Units 11:41 11:41 11:41 WBC 11.6 H (4.0-11.0) th/mm3 Neut # (Auto) 8.0 H (1.8-7.7) th/mm3 POC Glucose (68-110) mg/dl AST 13 L (15-37) U/L Albumin 2.7 L (3.4-5.0) g/dL Urine Clarity Cloudy H (Clear) Urine Protein 30 H (Neg-Trace) mg/dL Ur Leukocyte Esterase Small H (Negative) Urine WBC 17 H (0-5) /hpf Urine Bacteria Moderate H (None) /hpf Urine Mucus Many H (Occasional) /lpf 10/21/17 Range/Units 11:52 WBC (4.0-11.0) th/mm3 Neut # (Auto) (1.8-7.7) th/mm3 POC Glucose 135 H (68-110) mg/dl AST (15-37) U/L Albumin (3.4-5.0) g/dL Urine Clarity (Clear) Urine Protein (Neg-Trace) mg/dL Ur Leukocyte Esterase (Negative) Urine WBC (0-5) /hpf Urine Bacteria (None) /hpf Urine Mucus (Occasional) /lpf Short CBC 10/21/17 Range/Units 11:41 WBC 11.6 H (4.0-11.0) th/mm3 Hgb 12.1 (11.6-15.3) gm/dL Hct 36.2 (35.0-46.0) % Plt Count 180 (150-450) th/mm3 BMP 10/21/17 11:41 Sodium 139 Potassium 3.6 Chloride 103 Carbon Dioxide 28.0 BUN 17 Creatinine 0.70 Calcium 8.8 Liver Function 10/21/17 Range/Units 11:41 Total Bilirubin 0.3 (0.2-1.0) mg/dL AST 13 L (15-37) U/L ALT 21 (10-53) U/L Alkaline Phosphatase 100 (45-117) U/L Albumin 2.7 L (3.4-5.0) g/dL Urine 10/21/17 Range/Units 11:41 Urine Color Yellow (Yellw/Straw) Urine Clarity Cloudy H (Clear) Urine pH 5.0 (5.0-8.5) Ur Specific [place] 1.023 (1.002-1.035) Urine Protein 30 H (Neg-Trace) mg/dL Urine Glucose (UA) Negative (Negative) mg/dL Caprini VTE Risk Assessment Caprini VTE Risk Assessment: Moderate/High Risk (score >= 2) Caprini Risk Assessment Model: Point Value = 1 Point Value = 2 Point Value = 3 Point Value = 5 Age 41-60 Minor surgery BMI > 25 kg/m2 Swollen legs Varicose veins or History of unexplained or recurrent spontaneous Oral contraceptives or hormone replacement Sepsis (< 1 month) Serious lung disease, including pneumonia (< 1 month) Abnormal pulmonary function Acute myocardial infarction Congestive heart failure (< 1 month) History of inflammatory bowel disease Medical patient at bed rest Age 61-74 Arthroscopic surgery Major open surgery (> 45 min) Laparoscopic surgery (> 45 min) Malignancy Confined to bed (> 72 hours) Immobilizing plaster cast Central venous access Age >= 75 History of VTE Family history of VTE Factor V Leiden Prothrombin [id number] Lupus anticoagulant Anticardiolipin antibodies Elevated serum homocysteine Heparin-induced thrombocytopenia Other congenital or acquired thrombophilia Stroke (< 1 month) Elective arthroplasty Hip, pelvis, or leg fracture Acute spinal cord injury (< 1 month) Prophylaxis Regimen: Total Risk Factor Score Risk Level Prophylaxis Regimen 0-1 Low Early ambulation 2 Moderate Order ONE of the following: *Sequential Compression Device (SCD) *Heparin 5000 units SQ BID 3-4 Higher Order ONE of the following medications: *Heparin 5000 units SQ TID *Enoxaparin/Lovenox 40 mg SQ daily (WT < 150 kg, CrCl > 30 mL/min) *Enoxaparin/Lovenox 30 mg SQ daily (WT < 150 kg, CrCl > 10-29 mL/min) *Enoxaparin/Lovenox 30 mg SQ BID (WT < 150 kg, CrCl > 30 mL/min) AND/OR *Sequential Compression Device (SCD) 5 or more Highest Order ONE of the following medications: *Heparin 5000 units SQ TID (Preferred with Epidurals) *Enoxaparin/Lovenox 40 mg SQ daily (WT < 150 kg, CrCl > 30 mL/min) *Enoxaparin/Lovenox 30 mg SQ daily (WT < 150 kg, CrCl > 10-29 mL/min) *Enoxaparin/Lovenox 30 mg SQ BID (WT < 150 kg, CrCl > 30 mL/min) AND *Sequential Compression Device (SCD) Assessment and Plan - Assessment (1) Right leg pain Code(s): M79.604 - Pain in right leg Status: Acute Plan: Right leg pain and 4cm sore with surrounding erythema, swelling, hot to touch. Most likely cellulitis. Ddx DVT. -Admitted to obs -In ED given 2 L NS bolus, vancomycin, flagyl, aztreonam, Toradol -continued on vanc 1g q12hrs -one dose of 40 mg prednisone; consider taper if patient finds medication beneficial -marker used to outline extent of erythema -Pain: PRN Tylenol, narco 5-10, morphine -Requested [facility] records, consider right leg US doppler if records are not sent (2) Sepsis Code(s): A41.9 - Sepsis, unspecified organism Status: Acute Plan: Qualified for sepsis criteria with elevated white count 11,000 and tachycardia 110. Lactic acid within normal limits. Blood cultures drawn. urinalysis was positive for leuk esterase but had squamous epithelial cells indicative of contaminated specimen and patient denied any urinary symptoms. Sepsis most likely to to cellulitis. Was started on aztreonam, Flagyl, and Vanc in the ED as well as 2 L NS bolus. -Vancomycin 1g q 12 -BCX pending (3) Substance abuse Code(s): F19.10 - Other psychoactive substance abuse, uncomplicated Status: Acute Plan: Heroin use two days ago. 1/2 ppd cigarettes -monitor vital signs and withdraw symptoms -consider nicotine patch -currently on PRN narco and morphine for leg pain (4) Pathological emotionality Code(s): F60.3 - Borderline personality disorder Status: Acute Plan: When patient was asked about her CODE STATUS at first she stated DNR when asked to explain her reasoning she became tearful and said she was not up to talking at that time. When offered help for her other medical needs besides her leg patient stated for now she would like to be full code but was not up for discussing her tearfulness. -consider psych consult (5) Nutrition, metabolism, and development symptoms Code(s): R63.8 - Other symptoms and signs concerning food and fluid intake Status: Acute Plan: Diet: Regular DVT: lovenox Electrolytes: replete as needed - Assessment and Plan 31-year-old female with past history of IV drug use presents with right leg pain. What she describes as a pimple started 2 weeks ago that was draining purulent fluid. Since then has become more painful, erythematous, and warm to touch. Patient complained of fevers and chills. Qualified for sepsis criteria with elevated white count 11,000 and tachycardia 110. Lactic acid within normal limits. Blood cultures drawn. urinalysis was positive for leuk esterase but had squamous epithelial cells indicative of contaminated specimen and patient denied any urinary symptoms. Sepsis most likely to to cellulitis. Was started on aztreonam, Flagyl, and Vanc in the ED as well as 2 L NS bolus. Admitted to observation and continued on vancomycin. Records requested from her previous ED visit that week to [facility] for the ultrasound lower leg Doppler. Given 40 mg of prednisone. Disposition: unknown Discharge: home
[2017-10-21] MEDS: Enoxaparin Inj 40 MG/0.4 ML Syringe SQ SCH (15:32)
[2017-10-21] MEDS ORDERED: Bisacodyl 10 MG Supp RECTAL PRN (16:00)
[2017-10-21] MEDS ORDERED: Morphine Inj 4 MG/ML Vial IV.PUSH ONE (16:00)
[2017-10-21] MEDS ORDERED: predniSONE 20 MG Tablet PO ONE (16:00)
[2017-10-21] MEDS ORDERED: Vancomycin Inj 1,250 MG in Sodium Chlor 0.9% Inj 250 ML IV.SIG ONE (17:00)
--- NOTE | 2017-10-21 18:02 | P.PNFP ---
Subjective Interval history: Attending note: 31-year-old woman with history of IV heroin and Dilaudid use presented to the emergency room with pain and swelling in her right lower extremity that by history started about 2 weeks ago with a "pimple" . The pain has increased as well as swelling, she presented to the [place] emergency room for evaluation and treatment. Please refer to the resident history and physical for complete discussion of presenting details, past medical history, family history, social history and review of systems. Patient does note that she has had MRSA in the past, does not think she has ever had an infection involving her heart and other organs. Results - Labs Result diagrams: 10/21/17 11:41 10/21/17 11:41 Abnormal lab results 10/21/17 10/21/17 10/21/17 Range/Units 11:41 11:41 11:41 WBC 11.6 H (4.0-11.0) th/mm3 Neut # (Auto) 8.0 H (1.8-7.7) th/mm3 POC Glucose (68-110) mg/dl AST 13 L (15-37) U/L Albumin 2.7 L (3.4-5.0) g/dL Urine Clarity Cloudy H (Clear) Urine Protein 30 H (Neg-Trace) mg/dL Ur Leukocyte Esterase Small H (Negative) Urine WBC 17 H (0-5) /hpf Urine Bacteria Moderate H (None) /hpf Urine Mucus Many H (Occasional) /lpf 10/21/17 Range/Units 11:52 WBC (4.0-11.0) th/mm3 Neut # (Auto) (1.8-7.7) th/mm3 POC Glucose 135 H (68-110) mg/dl AST (15-37) U/L Albumin (3.4-5.0) g/dL Urine Clarity (Clear) Urine Protein (Neg-Trace) mg/dL Ur Leukocyte Esterase (Negative) Urine WBC (0-5) /hpf Urine Bacteria (None) /hpf Urine Mucus (Occasional) /lpf Short CBC 10/21/17 Range/Units 11:41 WBC 11.6 H (4.0-11.0) th/mm3 Hgb 12.1 (11.6-15.3) gm/dL Hct 36.2 (35.0-46.0) % Plt Count 180 (150-450) th/mm3 BMP 10/21/17 11:41 Sodium 139 Potassium 3.6 Chloride 103 Carbon Dioxide 28.0 BUN 17 Creatinine 0.70 Calcium 8.8 Liver Function 10/21/17 Range/Units 11:41 Total Bilirubin 0.3 (0.2-1.0) mg/dL AST 13 L (15-37) U/L ALT 21 (10-53) U/L Alkaline Phosphatase 100 (45-117) U/L Albumin 2.7 L (3.4-5.0) g/dL Urine 10/21/17 Range/Units 11:41 Urine Color Yellow (Yellw/Straw) Urine Clarity Cloudy H (Clear) Urine pH 5.0 (5.0-8.5) Ur Specific [place] 1.023 (1.002-1.035) Urine Protein 30 H (Neg-Trace) mg/dL Urine Glucose (UA) Negative (Negative) mg/dL Physical Exam Vital signs: Vital Signs 10/21/17 09:24 10/21/17 11:49 10/21/17 16:00 Temperature 98.0 F 99.9 F H Pulse Rate 110 H 100 H Respiratory Rate 17 16 Blood Pressure 105/66 110/63 Pulse Oximetry 100 98 99 Intake & Output 10/20/17 10/21/17 10/21/17 18:59 06:59 18:59 Intake Total 1450 / 1450 Balance 1450 / 1450 Weight 63.503 kg Intake: IV 1450 / 1450 NS Inj 1,000 ML @ Wide Open IV. 1000 / 1000 SIG .Q0M [facility] Rx#:[id number] Vancomycin Inj 1,000 MG In NS 250 / 250 Inj 250 ML @ 250 mls/hr IV.SIG STAT STA Rx#:[id number] Flagyl 500 MG Inj 100 ML @ 100 100 / 100 mls/hr IV.SIG STAT STA Rx#: [id number] Assessment and Plan - Assessment (1) Right leg pain Code(s): M79.604 - Pain in right leg Status: Acute Plan: Right leg pain and 4cm sore with surrounding erythema, swelling, hot to touch. Most likely cellulitis. Ddx DVT. -Admitted to obs -In ED given 2 L NS bolus, vancomycin, flagyl, aztreonam, Toradol -continued on vanc 1g q12hrs -one dose of 40 mg prednisone; consider taper if patient finds medication beneficial -marker used to outline extent of erythema -Pain: PRN Tylenol, narco 5-10, morphine -Requested [facility] records, consider right leg US doppler if records are not sent (2) Sepsis Code(s): A41.9 - Sepsis, unspecified organism Status: Acute Plan: Qualified for sepsis criteria with elevated white count 11,000 and tachycardia 110. Lactic acid within normal limits. Blood cultures drawn. urinalysis was positive for leuk esterase but had squamous epithelial cells indicative of contaminated specimen and patient denied any urinary symptoms. Sepsis most likely to to cellulitis. Was started on aztreonam, Flagyl, and Vanc in the ED as well as 2 L NS bolus. -Vancomycin 1g q 12 -BCX pending (3) Substance abuse Code(s): F19.10 - Other psychoactive substance abuse, uncomplicated Status: Acute Plan: Heroin use two days ago. 1/2 ppd cigarettes -monitor vital signs and withdraw symptoms -consider nicotine patch -currently on PRN narco and morphine for leg pain (4) Pathological emotionality Code(s): F60.3 - Borderline personality disorder Status: Acute Plan: When patient was asked about her CODE STATUS at first she stated DNR when asked to explain her reasoning she became tearful and said she was not up to talking at that time. When offered help for her other medical needs besides her leg patient stated for now she would like to be full code but was not up for discussing her tearfulness. -consider psych consult (5) Nutrition, metabolism, and development symptoms Code(s): R63.8 - Other symptoms and signs concerning food and fluid intake Status: Acute Plan: Diet: Regular DVT: lovenox Electrolytes: replete as needed - Assessment and Plan 31-year-old female with past history of IV drug use presents with right leg pain. What she describes as a pimple started 2 weeks ago that was draining purulent fluid. Since then has become more painful, erythematous, and warm to touch. Patient complained of fevers and chills. Qualified for sepsis criteria with elevated white count 11,000 and tachycardia 110. Lactic acid within normal limits. Blood cultures drawn. urinalysis was positive for leuk esterase but had squamous epithelial cells indicative of contaminated specimen and patient denied any urinary symptoms. Sepsis most likely to to cellulitis. Was started on aztreonam, Flagyl, and Vanc in the ED as well as 2 L NS bolus. Admitted to observation and continued on vancomycin. Records requested from her previous ED visit that week to [facility] for the ultrasound lower leg Doppler. Given 40 mg of prednisone. Disposition: unknown Discharge: home
[2017-10-21] MEDS: Vancomycin Inj 1,000 MG in Sodium Chlor 0.9% Inj 250 ML IV.SIG SCH (20:14)
[2017-10-21] MEDS: Senna/Docusate Sodium 8.6/50 MG Tablet PO SCH (20:15)
[2017-10-22 00:01] LABS: Amphetamine Screen,Urine Pos (Neg); Barbiturate Screen,Urine Neg (Neg); Cannabinoid Screen,Urine Neg (Neg); Cocaine Screen,Urine Pos (Neg)
[2017-10-22 00:03] LABS: Opiate Screen,Urine Pos (Neg)
[2017-10-22] MEDS: Morphine Inj 4 MG/ML Vial IV.PUSH PRN ×7 (00:08→22:43)
[2017-10-22] MEDS: Vancomycin Inj 1,000 MG in Sodium Chlor 0.9% Inj 250 ML IV.SIG SCH ×3 (05:04→21:44)
[2017-10-22] MEDS ORDERED: Morphine Inj 4 MG/ML Vial IV.PUSH ONE (09:10)
[2017-10-22] MEDS: Senna/Docusate Sodium 8.6/50 MG Tablet PO SCH ×2 (09:19→22:12)
--- NOTE | 2017-10-22 11:46 | P.PNFP ---
Subjective Interval history: Patient was seen and examined this morning. She states her pain is the same as it was at admission, not better or worse. She is able to get out of bed to bedside commode only. She denies fevers, chills, nausea, vomiting, but endorses sweating and skin paresthesias from substance withdrawal. She is eating and drinking without difficulty. <Mariam Motta L - 10/22/17 11:46> Results - Labs Result diagrams: 10/21/17 11:41 10/21/17 11:41 <Terence Hartley E - 10/22/17 13:51> Abnormal lab results 10/21/17 Range/Units 11:41 Urine Opiates Screen Pos H (Neg) Ur Amphetamines Screen Pos H (Neg) Urine Cocaine Screen Pos H (Neg) <Terence Hartley E - 10/22/17 13:51> Abnormal lab results 10/21/17 10/21/17 10/21/17 Range/Units 11:41 11:41 11:41 WBC 11.6 H (4.0-11.0) th/mm3 Neut # (Auto) 8.0 H (1.8-7.7) th/mm3 POC Glucose (68-110) mg/dl AST 13 L (15-37) U/L Albumin 2.7 L (3.4-5.0) g/dL Urine Clarity Cloudy H (Clear) Urine Protein 30 H (Neg-Trace) mg/dL Ur Leukocyte Esterase Small H (Negative) Urine WBC 17 H (0-5) /hpf Urine Bacteria Moderate H (None) /hpf Urine Mucus Many H (Occasional) /lpf Urine Opiates Screen (Neg) Ur Amphetamines Screen (Neg) Urine Cocaine Screen (Neg) 10/21/17 10/21/17 Range/Units 11:41 11:52 WBC (4.0-11.0) th/mm3 Neut # (Auto) (1.8-7.7) th/mm3 POC Glucose 135 H (68-110) mg/dl AST (15-37) U/L Albumin (3.4-5.0) g/dL Urine Clarity (Clear) Urine Protein (Neg-Trace) mg/dL Ur Leukocyte Esterase (Negative) Urine WBC (0-5) /hpf Urine Bacteria (None) /hpf Urine Mucus (Occasional) /lpf Urine Opiates Screen Pos H (Neg) Ur Amphetamines Screen Pos H (Neg) Urine Cocaine Screen Pos H (Neg) Short CBC 10/21/17 Range/Units 11:41 WBC 11.6 H (4.0-11.0) th/mm3 Hgb 12.1 (11.6-15.3) gm/dL Hct 36.2 (35.0-46.0) % Plt Count 180 (150-450) th/mm3 BMP 10/21/17 11:41 Sodium 139 Potassium 3.6 Chloride 103 Carbon Dioxide 28.0 BUN 17 Creatinine 0.70 Calcium 8.8 Liver Function 10/21/17 Range/Units 11:41 Total Bilirubin 0.3 (0.2-1.0) mg/dL AST 13 L (15-37) U/L ALT 21 (10-53) U/L Alkaline Phosphatase 100 (45-117) U/L Albumin 2.7 L (3.4-5.0) g/dL Urine 10/21/17 Range/Units 11:41 Urine Color Yellow (Yellw/Straw) Urine Clarity Cloudy H (Clear) Urine pH 5.0 (5.0-8.5) Ur Specific [place] 1.023 (1.002-1.035) Urine Protein 30 H (Neg-Trace) mg/dL Urine Glucose (UA) Negative (Negative) mg/dL <Mariam Motta L - 10/22/17 11:46> Physical Exam Vital signs: Vital Signs 10/21/17 16:00 10/21/17 20:00 10/21/17 23:27 Temperature 99.9 F H 99.6 F 98.8 F Pulse Rate 100 H 102 H 96 H Respiratory Rate 16 16 16 Blood Pressure 110/63 116/68 108/60 Pulse Oximetry 99 98 97 10/22/17 05:19 10/22/17 08:00 10/22/17 12:00 Temperature 99.1 F 98.6 F 98.3 F Pulse Rate 83 87 84 Respiratory Rate 18 18 16 Blood Pressure 110/68 117/74 111/65 Pulse Oximetry 98 98 97 10/22/17 13:33 Temperature Pulse Rate Respiratory Rate 20 Blood Pressure Pulse Oximetry Intake & Output 10/21/17 10/22/17 10/22/17 18:59 06:59 18:59 Intake Total 2049 740 / 740 Balance 2049 740 / 740 Weight 63.503 kg Intake: IV 1450 / 1450 500 / 500 NS Inj 1,000 ML @ Wide Open IV. 1000 / 1000 SIG .Q0M [facility] Rx#:[id number] Vancomycin Inj 1,000 MG In NS 250 / 250 500 / 500 Inj 250 ML @ 250 mls/hr IV.SIG Q8H [facility] Rx#:[id number] Flagyl 500 MG Inj 100 ML @ 100 100 / 100 mls/hr IV.SIG STAT STA Rx#: [id number] Oral 600 / 600 240 / 240 <Terence Hartley - 10/22/17 13:51> Vital Signs 10/21/17 11:49 10/21/17 16:00 10/21/17 20:00 Temperature 99.9 F H 99.6 F Pulse Rate 100 H 102 H Respiratory Rate 16 16 Blood Pressure 110/63 116/68 Pulse Oximetry 98 99 98 10/21/17 23:27 10/22/17 05:19 10/22/17 08:00 Temperature 98.8 F 99.1 F 98.6 F Pulse Rate 96 H 83 87 Respiratory Rate 16 18 18 Blood Pressure 108/60 110/68 117/74 Pulse Oximetry 97 98 98 Intake & Output 10/21/17 10/22/17 10/22/17 18:59 06:59 18:59 Intake Total 2049 740 / 740 Balance 2049 740 / 740 Weight 63.503 kg Intake: IV 1450 / 1450 500 / 500 NS Inj 1,000 ML @ Wide Open IV. 1000 / 1000 SIG .Q0M [facility] Rx#:[id number] Vancomycin Inj 1,000 MG In NS 250 / 250 500 / 500 Inj 250 ML @ 250 mls/hr IV.SIG Q8H [facility] Rx#:[id number] Flagyl 500 MG Inj 100 ML @ 100 100 / 100 mls/hr IV.SIG STAT STA Rx#: [id number] Oral 600 / 600 240 / 240 <Mariam Motta - 10/22/17 11:46> Narrative: SKIN: Warm and dry. Postsurgical scar on the right arm. Right lower extremity with infectious lesion on mid-calf which is non-draining. The area of erythema is drastically reduced from yesterday. 4cm lesion is still erythematous. Warm and tense leg. Very tender to palpation. Bedside US performed and showing soft tissue swelling. HEAD: Atraumatic. Normocephalic. EYES: Pupils equal and round. No scleral icterus. No injection or drainage. ENT: No nasal bleeding or discharge. Mucous membranes pink and moist. NECK: Trachea midline. No JVD. CARDIOVASCULAR: Regular rate and rhythm. 2+ dorsalis pedis pulses bilaterally. RESPIRATORY: No accessory muscle use. Clear to auscultation. Breath sounds equal bilaterally. GASTROINTESTINAL: Abdomen soft, non-tender, nondistended. Hepatic and splenic margins not palpable. MUSCULOSKELETAL: Moving all extremities with grossly normal strength. NEUROLOGICAL: Awake and alert. No obvious cranial nerve deficits. Motor grossly within normal limits. Normal speech. PSYCHIATRIC: Appropriate mood and affect; insight and judgment normal. She appears to be upset due to pain. <Mariam Motta L - 10/22/17 11:46> Assessment and Plan - Assessment (1) Cellulitis Code(s): L03.90 - Cellulitis, unspecified Status: Acute (2) Sepsis Code(s): A41.9 - Sepsis, unspecified organism Status: Acute (3) Substance abuse Code(s): F19.10 - Other psychoactive substance abuse, uncomplicated Status: Acute (4) Pathological emotionality Code(s): F60.3 - Borderline personality disorder Status: Acute (5) Nutrition, metabolism, and development symptoms Code(s): R63.8 - Other symptoms and signs concerning food and fluid intake Status: Acute <Terence Hartley E - 10/22/17 13:51> (1) Cellulitis Code(s): L03.90 - Cellulitis, unspecified Status: Acute Plan: Right leg pain and 4 cm sore with surrounding erythema, swelling, hot to touch. Most likely cellulitis. Low suspicion for DVT at this time -Admitted to observation. -In ED given 2L NS bolus, vancomycin, flagyl, aztreonam, Toradol. -continued on vanc 1g q12hrs with vancomycin consult -one dose of 40 mg prednisone; consider taper if patient finds medication beneficial but did not appear to help her symptoms -marker used to outline extent of erythema which is improving -Pain: PRN Tylenol, narco 5-10, morphine IV for breakthrough -Requested [facility] records, consider right leg US doppler if needed (2) Sepsis Code(s): A41.9 - Sepsis, unspecified organism Status: Acute Plan: Qualified for sepsis criteria with elevated white count 11,000 and tachycardia 110 on admission. Lactic acid within normal limits. Blood cultures drawn. urinalysis was positive for leuk esterase but had squamous epithelial cells indicative of contaminated specimen and patient denied any urinary symptoms. Sepsis most likely to to cellulitis. Was started on aztreonam, Flagyl, and Vanc in the ED as well as 2 L NS bolus. -Vancomycin 1g q 12 -BCX pending (3) Substance abuse Code(s): F19.10 - Other psychoactive substance abuse, uncomplicated Status: Acute Plan: Heroin use two days ago. 1/2 ppd cigarettes. -UDS positive for amphetamines, opiates, cocaine. -monitor vital signs and withdraw symptoms. -consider nicotine patch. -currently on PRN narco and morphine for leg pain. (4) Pathological emotionality Code(s): F60.3 - Borderline personality disorder Status: Acute Plan: Patient likely has depressive disorder but in the context of substance abuse. Patient is full code at this time. -consider psych consult if indicated, not needed at this time (5) Nutrition, metabolism, and development symptoms Code(s): R63.8 - Other symptoms and signs concerning food and fluid intake Status: Acute Plan: Diet: Regular diet DVT: Lovenox SQ 40mg daily Electrolytes: replete as needed Disposition: anticipate discharge in 1-2 days pending clinical course, on PO antibiotics. sports trainer consult for social needs <Mariam Motta L - 10/22/17 11:16> - Assessment and Plan Attending note: Patient seen and examined with resident team. Informal ultrasound done at the bedside demonstrating a 1+ cm fluid accumulation under the primary area of the calf. Superficially the redness has significantly defervesced. There is some painful induration surrounding the wound. Because of the clinical improvement will hold the course with IV antibiotics and at this time not consider I&D of the area. Follow clinically. Agree with orders as written per the resident team. Terence Hartley MD 10/22/2017. <Terence Hartley - 10/22/17 13:51> <Mariam Motta L - Last Filed: 10/22/17 11:16> (1) Cellulitis Qualifiers: Laterality: right <Terence Hartley E - Last Filed: 10/22/17 13:51> (1) Cellulitis Qualifiers: Laterality: right <Mariam Motta L - Last Filed: 10/22/17 11:16> (1) Cellulitis Qualifiers: Laterality: right <Terence Hartley E - Last Filed: 10/22/17 13:51> (1) Cellulitis Qualifiers: Laterality: right
[2017-10-22] MEDS ORDERED: Pharmacy Ordered Lab Info OTHER ONE ×2 (12:45→20:45)
[2017-10-22] MEDS: Enoxaparin Inj 40 MG/0.4 ML Syringe SQ SCH (17:28)
[2017-10-22 21:45] LABS: Albumin 2.4 g/dL (3.4-5.0); Anion Gap 11 meq/L (5-15); Aspartate Aminotransferase 14 U/L (15-37); Blood Urea Nitrogen 9 mg/dL (7-18); Calcium 8.6 mg/dL (8.5-10.1); Carbon Dioxide 24.4 meq/L (21.0-32.0); Chloride 105 meq/L (98-107); Glomerular Filtration Rate Greater Than 89 mL/min (>89); Glucose,Random 99 mg/dL (74-106); Potassium 3.6 meq/L (3.5-5.1); Sodium 140 meq/L (136-145)
[2017-10-22 21:46] LABS: Alanine Aminotransferase 18 U/L (10-53)
[2017-10-22 21:48] LABS: Alkaline Phosphatase 96 U/L (45-117); Total Protein 7.3 g/dL (6.4-8.2); Vancomycin,Trough 6.3 mcg/mL (5.0-10.0)
[2017-10-23] MEDS: Morphine Inj 4 MG/ML Vial IV.PUSH PRN ×4 (04:18→21:11)
[2017-10-23] MEDS: Vancomycin Inj 1,250 MG in Sodium Chlor 0.9% Inj 250 ML IV.SIG SCH ×3 (05:34→21:46)
[2017-10-23 07:27] LABS: Baso # (Auto) 0.1 th/mm3 (0.0-0.2); Baso % (Auto) 0.5 % (0.0-2.0); Eos # (Auto) 0.1 th/mm3 (0.0-0.4); Eos % (Auto) 1.1 % (0.0-4.0); Hemoglobin 11.1 gm/dL (11.6-15.3); Lymph # (Auto) 2.3 th/mm3 (1.0-4.8); Lymph % (Auto) 16.7 % (9.0-44.0); Mean Corpuscular HGB Conc 32.7 % (32.0-36.0); Mean Corpuscular Hemoglobin 28.3 pg (27.0-34.0); Mean Corpuscular Volume 86.8 fL (80.0-100.0); Mean Platelet Volume 8.5 fL (7.0-11.0); Mono % (Auto) 7.7 % (0.0-8.0); Platelet Count 168 th/mm3 (150-450); Red Blood Count 3.91 mil/mm3 (4.00-5.30); Red Cell Distribution Width 14.3 % (11.6-17.2); White Blood Count 13.5 th/mm3 (4.0-11.0)
[2017-10-23] MEDS: Senna/Docusate Sodium 8.6/50 MG Tablet PO SCH ×2 (08:03→21:11)
[2017-10-23 08:35] LABS: Platelet Estimate Normal (Normal); Platelet Morphology Normal (Normal)
--- NOTE | 2017-10-23 09:48 | US ---
EXAM DATE: 10/23/2017 9:36 AM EDT AGE/SEX: 31 years / Female INDICATIONS: Right medial mid calf area of redness and pain. Possible IV drug use in this area. CLINICAL DATA: This is the patient's initial encounter. Patient reports that signs and symptoms have been present for 1 day and indicates a pain score of 1/10. MEDICAL/SURGICAL HISTORY: . Right medial mid calf area of redness and pain. Possible IV drug u se in this area. . LEEP. Right arm surgery. COMPARISON: No prior exams available for comparison. FINDINGS: Grayscale and Doppler ultrasound imaging was performed in the area of interest which is located in th e medial aspect of the mid leg/calf region and documents a subcutaneous complex avascular collection measuring approximately 12.7 x 1.9 x 4.2 cm. The deeper aspect of the collection extends almost to 3 cm deep by the superficial aspect extends within millimeters of the skin surface at the inferior aspe ct. CONCLUSION: Complex subcutaneous collection measuring approximately 12.7 x 1.9 x 4.2 cm. The superficial portion along the inferior aspect extends within millimeters of the skin surface. The appearance and clinical history are suspicious for abscess. Electronically signed by: Dilan Holley MD 10/23/2017 9:47 AM EDT
--- NOTE | 2017-10-23 10:14 | P.PNFP ---
Subjective Interval history: Patient had a fever overnight to 100.5. Otherwise vitals are stable and patient had no acute events overnight. Pain is more well controlled currently. Patient also been having some withdrawal-like symptoms yesterday but states she feels much better today after being started on clonidine yesterday. Denies any chest pain or shortness of breath, nausea vomiting, diarrhea. Of note, a small plastic container was noted in the patient's brawl. Patient states that this is sentimental and contains her uncle's ashes. Results - Labs Result diagrams: 10/23/17 06:19 10/22/17 21:00 Abnormal lab results 10/22/17 10/23/17 Range/Units 21:00 06:19 WBC 13.5 H (4.0-11.0) th/mm3 RBC 3.91 L (4.00-5.30) mil/mm3 Hgb 11.1 L (11.6-15.3) gm/dL Hct 34.0 L (35.0-46.0) % Neut % (Auto) 74.0 H (16.0-70.0) % Neut # (Auto) 10.0 H (1.8-7.7) th/mm3 [place] # (Auto) 1.0 H (0.0-0.9) th/mm3 AST 14 L (15-37) U/L Albumin 2.4 L (3.4-5.0) g/dL Short CBC 10/23/17 Range/Units 06:19 WBC 13.5 H (4.0-11.0) th/mm3 Hgb 11.1 L (11.6-15.3) gm/dL Hct 34.0 L (35.0-46.0) % Plt Count 168 (150-450) th/mm3 BMP 10/22/17 21:00 Sodium 140 Potassium 3.6 Chloride 105 Carbon Dioxide 24.4 BUN 9 Creatinine 0.51 Calcium 8.6 Liver Function 10/22/17 Range/Units 21:00 Total Bilirubin 0.2 (0.2-1.0) mg/dL AST 14 L (15-37) U/L ALT 18 (10-53) U/L Alkaline Phosphatase 96 (45-117) U/L Albumin 2.4 L (3.4-5.0) g/dL - Imaging Impressions Soft Tissue Ultrasound 10/23/17 00:00 CONCLUSION: Complex subcutaneous collection measuring approximately 12.7 x 1.9 x 4.2 cm. The superficial portion along the inferior aspect extends within millimeters of the skin surface. The appearance and clinical history are suspicious for abscess. Physical Exam Vital signs: Vital Signs 10/22/17 12:00 10/22/17 13:33 10/22/17 15:36 Temperature 98.3 F Pulse Rate 84 Respiratory Rate 16 20 20 Blood Pressure 111/65 Pulse Oximetry 97 10/22/17 16:00 10/22/17 18:39 10/22/17 18:40 Temperature 98.4 F Pulse Rate 93 H Respiratory Rate 16 20 16 Blood Pressure 104/58 L Pulse Oximetry 98 10/22/17 20:00 10/22/17 23:52 10/23/17 04:00 Temperature 100.5 F H 99.1 F 98.4 F Pulse Rate 101 H 82 78 Respiratory Rate 19 19 Blood Pressure 103/58 L 98/59 L 100/56 L Pulse Oximetry 97 97 98 10/23/17 07:20 Temperature 99.6 F Pulse Rate 63 Respiratory Rate 16 Blood Pressure 102/63 Pulse Oximetry 96 Intake & Output 10/22/17 10/23/17 10/23/17 18:59 06:59 18:59 Intake Total 250 / 250 512.5 / 512.5 Balance 250 / 250 512.5 / 512.5 Weight 63.5 kg Intake: IV 250 / 250 512.5 / 512.5 Vancomycin Inj 1,000 MG In NS 250 / 250 250 / 250 Inj 250 ML @ 250 mls/hr IV.SIG Q8H [facility] Rx#:[id number] Vancomycin Inj 1,250 MG In NS 262.5 / 262.5 Inj 250 ML @ 250 mls/hr IV.SIG Q8H [facility] Rx#:[id number] Other: Weight On Admission 63.503 kg Narrative: SKIN: Warm and dry. Postsurgical scar on the right arm. Right lower extremity with infectious lesion on mid-calf which is non-draining. The area of erythema is drastically reduced from yesterday. 4cm lesion is still erythematous and more raised today. Warm and tense leg. Less tender to palpation in prior exam. HEAD: Atraumatic. Normocephalic. EYES: Pupils equal and round. No scleral icterus. No injection or drainage. ENT: No nasal bleeding or discharge. Mucous membranes pink and moist. NECK: Trachea midline. No JVD. CARDIOVASCULAR: Regular rate and rhythm. 2+ dorsalis pedis pulses bilaterally. RESPIRATORY: No accessory muscle use. Clear to auscultation. Breath sounds equal bilaterally. Of note, small plastic container noted in the patient's bra. GASTROINTESTINAL: Abdomen soft, non-tender, nondistended. Hepatic and splenic margins not palpable. MUSCULOSKELETAL: Moving all extremities with grossly normal strength. NEUROLOGICAL: Awake and alert. No obvious cranial nerve deficits. Motor grossly within normal limits. Normal speech. PSYCHIATRIC: Appropriate mood and affect; insight and judgment normal. Assessment and Plan - Assessment (1) Cellulitis Code(s): L03.90 - Cellulitis, unspecified Status: Acute Plan: Right leg pain and 4 cm sore with surrounding erythema, swelling, hot to touch. Most likely cellulitis. Low suspicion for DVT at this time -Admitted to observation. -In ED given 2L NS bolus, vancomycin, flagyl, aztreonam, Toradol. -continued on vanc 1g q12hrs with vancomycin consult -one dose of 40 mg prednisone; consider taper if patient finds medication beneficial but did not appear to help her symptoms -marker used to outline extent of erythema which is improving -Pain: PRN Tylenol, narco 5-10, morphine IV for breakthrough -Patient had fever overnight 100.5, increase in WBC count from admission -Ultrasound of the leg was ordered which showed a 12 x 2 x 4 area of fluid collection suggestive of an abscess -Consulting podiatry for I&D (2) Sepsis Code(s): A41.9 - Sepsis, unspecified organism Status: Acute Plan: Qualified for sepsis criteria with elevated white count 11,000 and tachycardia 110 on admission. Lactic acid within normal limits. Blood cultures drawn. urinalysis was positive for leuk esterase but had squamous epithelial cells indicative of contaminated specimen and patient denied any urinary symptoms. Sepsis most likely to to cellulitis. Was started on aztreonam, Flagyl, and Vanc in the ED as well as 2 L NS bolus. -Vancomycin 1g q 12 -BCX no growth in 24 hours (3) Substance abuse Code(s): F19.10 - Other psychoactive substance abuse, uncomplicated Status: Acute Plan: Heroin use two days ago. 1/2 ppd cigarettes. -UDS positive for amphetamines, opiates, cocaine. -monitor vital signs and withdraw symptoms. -Clonidine 0.1 mg every 8 hours -currently on PRN narco and morphine for leg pain. (4) Pathological emotionality Code(s): F60.3 - Borderline personality disorder Status: Acute Plan: Patient likely has depressive disorder but in the context of substance abuse. Patient is full code at this time. -consider psych consult if indicated, not needed at this time (5) Nutrition, metabolism, and development symptoms Code(s): R63.8 - Other symptoms and signs concerning food and fluid intake Status: Acute Plan: Diet: Regular diet DVT: Lovenox SQ 40mg daily Electrolytes: replete as needed Disposition: anticipate discharge in 1-2 days pending clinical course, on PO antibiotics. hris analyst consult for social needs - Assessment and Plan 31-year-old female with history of IV drug use presented with cellulitis of the right lower leg. Initially met SIRS criteria was given aztreonam, vancomycin, Flagyl in the ED. Has been continued on vancomycin. Erythema and pain have improved, patient had a fever of 100.5 and an increase in white count on day 2 of hospitalization. Ultrasound showed 12 x 2 x 4 cm area of fluid collection suggestive of an abscess. Podiatry consulted. Blood cultures with no growth to date. (1) Cellulitis Qualifiers: Laterality: right
[2017-10-23] MEDS: Acetaminophen 325 MG Tablet PO PRN ×2 (14:32→21:10)
[2017-10-23] MEDS: Enoxaparin Inj 40 MG/0.4 ML Syringe SQ SCH (16:00)
[2017-10-23] MEDS ORDERED: Pharmacy Ordered Lab Info OTHER ONE (19:45)
--- NOTE | 2017-10-23 22:19 | P.CONPOD ---
History of Present Illness Service: Podiatry Consult date: 10/23/17 Reason for Consult: abscess right leg Primary Care Provider: No Primary Care Physician Family Provider: No Primary Care Physician Chief Complaint: Right leg pain History of Present Illness: Patient states that a few days ago the area to medial right calf started to get painful and red. She says it then erupted after her ultrasound, but the pain decreased when it started draining earlier. She is eagerly awaiting surgery Review of Systems All other systems reviewed negative except as stated in HPI [facility] - History History Provided By: Patient - Medical History Medical History: Medical History (Last Reviewed 10/22/17 @ 06:29 by Emiliana Head) Encounter for removal of ureteral stent IV drug user - Surgical History Surgical History: Surgical History (Last Reviewed 10/22/17 @ 06:29 by Emiliana Head) H/O LEEP History of surgery on arm - Tobacco History Second Hand Smoke Exposure: Yes Tobacco Use In Past 30 Days: Yes Smoking Status: Current every day smoker Tobacco Type: Cigarettes - Alcohol History How Often Do You Have a Drink Containing Alcohol: Never - Substance Use History Substance History: Past History - Substance Use Type Heroin Status: Early Remission Route Used: Intravenously Reason for Use: Feels Good - Travel History Recent Travel in the [place] Within the Last 8 Weeks: No Recent Travel Out of the Country Within the Last 8 Weeks: No - Immunization History Tetanus Immunization: Unsure Hx Influenza Vaccine This Season: No Medications and Allergies Active Medications: Active Medications Acetaminophen (Tylenol) 650 mg PO Q6HR PRN PRN Reason: PAIN SCALE 1 TO 2 Last Admin: 10/23/17 21:10 Dose: 650 mg Hydrocodone Bitart/Acetaminophen ([place] 10/325) 1 tab PO Q4H PRN PRN Reason: PAIN SCALE 6 TO 10 Last Admin: 10/23/17 19:07 Dose: 1 tab Hydrocodone Bitart/Acetaminophen ([place] 5/325) 1 tab PO Q4H PRN PRN Reason: PAIN SCALE 3 TO 5 Last Admin: 10/22/17 21:42 Dose: 1 tab Al Hydroxide/Mg Hydroxide (Milk Of Magnesia Liq) 30 ml PO Q12H PRN PRN Reason: Mild Constipation Bisacodyl (Dulcolax Supp) 10 mg RECTAL DAILY PRN PRN Reason: SEVERE CONSITIPATION Clonidine HCl (Catapres) 0.1 mg PO Q8HR [facility] Last Admin: 10/23/17 13:51 Dose: Not Given Enoxaparin Sodium (Lovenox Inj) 40 mg SQ Q24H [facility] Last Admin: 10/23/17 16:00 Dose: Not Given Sodium Chloride (Ns Inj) 1,000 mls @ 0 mls/hr IV.SIG .Q0M [facility] Last Infusion: 10/21/17 13:50 Dose: Infused Sodium Chloride (Ns Inj) 1,000 mls @ 0 mls/hr IV.SIG .Q0M [facility] Vancomycin HCl 1,250 mg/ (Sodium Chloride) 262.5 mls @ 250 mls/hr IV.SIG Q8H [facility] Last Admin: 10/23/17 21:46 Dose: 250 mls/hr Lactulose (Lactulose Liq) 30 ml PO DAILY PRN PRN Reason: SEVERE CONSITIPATION Morphine Sulfate (Morphine Inj) 2 mg IV.PUSH Q3H PRN PRN Reason: BREAKTHROUGH PAIN Last Admin: 10/23/17 21:11 Dose: 2 mg Naloxone HCl (Narcan Inj) 0.4 mg IV.PUSH UNSCH PRN PRN Reason: SEE LABEL COMMENTS Ondansetron HCl (Zofran Inj) 4 mg IV.PUSH Q6H PRN PRN Reason: NAUSEA OR VOMITING Pharmacy Profile Note (Vancomycin Consult Pharmacy) 1 each OTHER UNSCH PRN PRN Reason: Pharmacy to dose Senna/Docusate Sodium (Sofi-Colace) 1 tab PO BID [facility] Last Admin: 10/23/17 21:11 Dose: 1 tab Sennosides (Senokot) 17.2 mg PO Q12H PRN PRN Reason: Moderate Constipation Allergies Allergy/AdvReac Type Severity Reaction Status Date / Time amoxicillin Allergy Unknown Rash Verified 10/21/17 10:41 Penicillins Allergy Unknown Rash Verified 10/21/17 10:41 Home Medications Medication Instructions Recorded Confirmed Type No Known Home Medications 10/21/17 10/21/17 History Physical Exam Vital signs: Vital Signs 10/22/17 23:52 10/23/17 04:00 10/23/17 07:20 Temperature 99.1 F 98.4 F 99.6 F Pulse Rate 82 78 63 Respiratory Rate 19 16 Blood Pressure 98/59 L 100/56 L 102/63 Pulse Oximetry 97 98 96 10/23/17 12:00 10/23/17 13:53 10/23/17 16:00 Temperature 99.7 F H 100.2 F H 99.1 F Pulse Rate 93 H 104 H 102 H Respiratory Rate 18 18 16 Blood Pressure 97/62 L 102/65 94/50 L Pulse Oximetry 99 96 10/23/17 18:44 10/23/17 18:45 10/23/17 19:07 Temperature 98.6 F 98.6 F Pulse Rate 91 H 91 H Respiratory Rate 20 16 Blood Pressure 109/56 L Pulse Oximetry 96 10/23/17 19:44 10/23/17 20:00 Temperature 101.5 F H Pulse Rate 86 Respiratory Rate 16 16 Blood Pressure 101/60 Pulse Oximetry 100 Intake & Output 10/23/17 10/23/17 10/24/17 06:59 18:59 06:59 Intake Total 512.5 / 512.5 262.5 / 262.5 Balance 512.5 / 512.5 262.5 / 262.5 Weight 63.5 kg Intake: IV 512.5 / 512.5 262.5 / 262.5 Vancomycin Inj 1,000 MG In NS 250 / 250 Inj 250 ML @ 250 mls/hr IV.SIG Q8H [facility] Rx#:[id number] Vancomycin Inj 1,250 MG In NS 262.5 / 262.5 262.5 / 262.5 Inj 250 ML @ 250 mls/hr IV.SIG Q8H [facility] Rx#:[id number] Other: # Voids 1 Weight On Admission 63.503 kg Narrative: neurovascularly intact. medial right calf with erythematous painful area with central opening with purulent drainage present. Results - Labs CBC & Chem 7: 10/23/17 06:19 10/22/17 21:00 Laboratory Results - last 24 hr 10/23/17 10/23/17 10/23/17 06:19 19:03 19:03 WBC 13.5 H RBC 3.91 L Hgb 11.1 L Hct 34.0 L MCV 86.8 MCH 28.3 MCHC 32.7 RDW 14.3 Plt Count 168 MPV 8.5 Prelim Diff (Auto) Slide review pending Neut % (Auto) 74.0 H Lymph % (Auto) 16.7 [place] % (Auto) 7.7 Eos % (Auto) 1.1 Baso % (Auto) 0.5 Neut # (Auto) 10.0 H Lymph # (Auto) 2.3 [place] # (Auto) 1.0 H Eos # (Auto) 0.1 Baso # (Auto) 0.1 WBC Differential . Diff Scan Auto diff confirmed Differential Comment . Platelet Estimate Normal Platelet Morphology Normal Hematology Comments Lactic Acid 2.2 H Vancomycin Trough 17.8 H Microbiology 10/21/17 11:41 Blood - Peripheral Aerobic Blood Culture - Preliminary No growth in 2 days 10/21/17 11:41 Blood - Peripheral Anaerobic Blood Culture - Preliminary No growth in 2 days 10/21/17 11:51 Blood - Peripheral Aerobic Blood Culture - Preliminary No growth in 2 days 10/21/17 11:51 Blood - Peripheral Anaerobic Blood Culture - Preliminary No growth in 2 days 10/21/17 11:41 Random Urine Urine Culture - Final 50-100,000 cfu/mL mixed gram positive delilah (probable contaminants) - Imaging Impressions Soft Tissue Ultrasound 10/23/17 00:00 CONCLUSION: Complex subcutaneous collection measuring approximately 12.7 x 1.9 x 4.2 cm. The superficial portion along the inferior aspect extends within millimeters of the skin surface. The appearance and clinical history are suspicious for abscess. Assessment and Plan - Assessment (1) Abscess of right leg Code(s): L02.415 - Cutaneous abscess of right lower limb Status: Acute Plan: NPO after 830 a.m. tomorrow. Plan to OR tomorrow approx. 430 pm for I&D Right leg abscess Consent ordered. (2) Cellulitis Code(s): L03.90 - Cellulitis, unspecified Status: Acute (2) Cellulitis Qualifiers: Laterality: right
[2017-10-24] MEDS ORDERED: Chlorhexidine Gluconate 2% 1 Pack (2 Cloths) TOPICAL SCH (03:30)
[2017-10-24] MEDS: Vancomycin Inj 1,250 MG in Sodium Chlor 0.9% Inj 250 ML IV.SIG SCH ×3 (03:50→20:24)
[2017-10-24] MEDS ORDERED: Sodium Chlor 0.9% Inj 500 ML IV.SIG SCH (04:00)
[2017-10-24] MEDS: Morphine Inj 4 MG/ML Vial IV.PUSH PRN ×4 (05:47→20:13)
[2017-10-24] MEDS: Senna/Docusate Sodium 8.6/50 MG Tablet PO SCH ×2 (08:02→20:14)
[2017-10-24 08:54] LABS: Anion Gap 9 meq/L (5-15); Blood Urea Nitrogen 10 mg/dL (7-18); Calcium 8.2 mg/dL (8.5-10.1); Chloride 106 meq/L (98-107); Glomerular Filtration Rate Greater Than 89 mL/min (>89); Glucose,Random 72 mg/dL (74-106); Potassium 4.4 meq/L (3.5-5.1); Sodium 138 meq/L (136-145)
--- NOTE | 2017-10-24 10:00 | P.PNFP ---
Subjective Interval history: Patient says pain is tolerable and felt better when wound was draining. Was able to eat and sleep overnight. Painful to walk to bathroom. Denied nausea or SOB. Notes her IV arm is red and says this happened before with she had vancomycin. <Mary Ann Ohara - 10/24/17 10:00> Results - Labs Result diagrams: 10/24/17 10:31 10/24/17 06:14 <Terence Hartley - 10/24/17 12:37> Abnormal lab results 10/23/17 10/23/17 10/24/17 Range/Units 19:03 19:03 06:14 RBC (4.00-5.30) mil/mm3 Hgb (11.6-15.3) gm/dL Hct (35.0-46.0) % Neut % (Auto) (16.0-70.0) % [place] % (Auto) (0.0-8.0) % Creatinine 0.47 L (0.50-1.00) mg/dL Random Glucose 72 L (74-106) mg/dL Lactic Acid 2.2 H (0.4-2.0) mmol/L Calcium 8.2 L (8.5-10.1) mg/dL Vancomycin Trough 17.8 H (5.0-10.0) mcg/mL 10/24/17 Range/Units 10:31 RBC 3.91 L (4.00-5.30) mil/mm3 Hgb 11.0 L (11.6-15.3) gm/dL Hct 33.4 L (35.0-46.0) % Neut % (Auto) 70.4 H (16.0-70.0) % [place] % (Auto) 8.9 H (0.0-8.0) % Creatinine (0.50-1.00) mg/dL Random Glucose (74-106) mg/dL Lactic Acid (0.4-2.0) mmol/L Calcium (8.5-10.1) mg/dL Vancomycin Trough (5.0-10.0) mcg/mL Short CBC 10/24/17 Range/Units 10:31 WBC 9.7 (4.0-11.0) th/mm3 Hgb 11.0 L (11.6-15.3) gm/dL Hct 33.4 L (35.0-46.0) % Plt Count 178 (150-450) th/mm3 [facility] 10/24/17 06:14 Sodium 138 Potassium 4.4 D Chloride 106 Carbon Dioxide 23.0 BUN 10 Creatinine 0.47 L Calcium 8.2 L <Terence Hartley - 10/24/17 12:37> Abnormal lab results 10/23/17 10/23/17 10/24/17 Range/Units 19:03 19:03 06:14 Creatinine 0.47 L (0.50-1.00) mg/dL Random Glucose 72 L (74-106) mg/dL Lactic Acid 2.2 H (0.4-2.0) mmol/L Calcium 8.2 L (8.5-10.1) mg/dL Vancomycin Trough 17.8 H (5.0-10.0) mcg/mL [facility] 10/24/17 06:14 Sodium 138 Potassium 4.4 D Chloride 106 Carbon Dioxide 23.0 BUN 10 Creatinine 0.47 L Calcium 8.2 L <Mary Ann Ohara - 10/24/17 10:00> Physical Exam Vital signs: Vital Signs 10/23/17 13:53 10/23/17 16:00 10/23/17 18:44 Temperature 100.2 F H 99.1 F 98.6 F Pulse Rate 104 H 102 H 91 H Respiratory Rate 18 16 Blood Pressure 102/65 94/50 L Pulse Oximetry 96 10/23/17 18:45 10/23/17 19:07 10/23/17 19:44 Temperature 98.6 F Pulse Rate 91 H Respiratory Rate 20 16 16 Blood Pressure 109/56 L Pulse Oximetry 96 10/23/17 20:00 10/24/17 00:00 10/24/17 02:22 Temperature 101.5 F H 100.4 F H Pulse Rate 86 97 H Respiratory Rate 16 15 18 Blood Pressure 101/60 108/57 L Pulse Oximetry 100 97 10/24/17 04:00 10/24/17 08:00 10/24/17 09:17 Temperature 99.8 F H 99 F Pulse Rate 91 H 90 Respiratory Rate 18 22 16 Blood Pressure 104/58 L 100/60 Pulse Oximetry 96 99 10/24/17 09:47 Temperature Pulse Rate Respiratory Rate 22 Blood Pressure Pulse Oximetry Intake & Output 10/23/17 10/24/1718 18:59 06:59 18:59 Intake Total 262.5 / 262.5 525.0 / 525.0 Balance 262.5 / 262.5 525.0 / 525.0 Weight 63.5 kg 65.6 kg Intake: IV 262.5 / 262.5 525.0 / 525.0 Vancomycin Inj 1,250 MG In NS 262.5 / 262.5 525.0 / 525.0 Inj 250 ML @ 250 mls/hr IV.SIG Q8H [facility] Rx#:[id number] Other: # Voids 1 1 Weight On Admission 63.503 kg <Terence Hartley E - 10/24/17 12:37> Vital Signs 10/23/17 12:00 10/23/17 13:53 10/23/17 16:00 Temperature 99.7 F H 100.2 F H 99.1 F Pulse Rate 93 H 104 H 102 H Respiratory Rate 18 18 16 Blood Pressure 97/62 L 102/65 94/50 L Pulse Oximetry 99 96 10/23/17 18:44 10/23/17 18:45 10/23/17 19:07 Temperature 98.6 F 98.6 F Pulse Rate 91 H 91 H Respiratory Rate 20 16 Blood Pressure 109/56 L Pulse Oximetry 96 10/23/17 19:44 10/23/17 20:00 10/24/17 00:00 Temperature 101.5 F H 100.4 F H Pulse Rate 86 97 H Respiratory Rate 16 16 15 Blood Pressure 101/60 108/57 L Pulse Oximetry 100 97 10/24/17 02:22 10/24/17 04:00 10/24/17 08:00 Temperature 99.8 F H 99 F Pulse Rate 91 H 90 Respiratory Rate 18 18 22 Blood Pressure 104/58 L 100/60 Pulse Oximetry 96 99 10/24/17 09:17 Temperature Pulse Rate Respiratory Rate 16 Blood Pressure Pulse Oximetry Intake & Output 10/23/17 10/24/17 10/24/17 18:59 06:59 18:59 Intake Total 262.5 / 262.5 525.0 / 525.0 Balance 262.5 / 262.5 525.0 / 525.0 Weight 63.5 kg 65.6 kg Intake: IV 262.5 / 262.5 525.0 / 525.0 Vancomycin Inj 1,250 MG In NS 262.5 / 262.5 525.0 / 525.0 Inj 250 ML @ 250 mls/hr IV.SIG Q8H [facility] Rx#:[id number] Other: # Voids 1 1 Weight On Admission 63.503 kg <Mary Ann Ohara Nia - 10/24/17 10:00> Narrative: SKIN: Warm and dry. Postsurgical scar on the right arm. Right lower extremity with infectious lesion on mid-calf which is non-draining. The area of erythema is drastically reduced from yesterday. 4cm lesion is still erythematous and more raised today. Warm and tense leg. Less tender to palpation in prior exam. Right arm inflamed proximal to the IV site with minimal induration. HEAD: Atraumatic. Normocephalic. EYES: Pupils equal and round. No scleral icterus. No injection or drainage. ENT: No nasal bleeding or discharge. Mucous membranes pink and moist. NECK: Trachea midline. No JVD. CARDIOVASCULAR: Regular rate and rhythm. 2+ dorsalis pedis pulses bilaterally. RESPIRATORY: No accessory muscle use. Clear to auscultation. Breath sounds equal bilaterally. Of note, small plastic container noted in the patient's bra. GASTROINTESTINAL: Abdomen soft, non-tender, nondistended. Hepatic and splenic margins not palpable. MUSCULOSKELETAL: Moving all extremities with grossly normal strength. NEUROLOGICAL: Awake and alert. No obvious cranial nerve deficits. Motor grossly within normal limits. Normal speech. PSYCHIATRIC: Appropriate mood and affect; insight and judgment normal. <Mary Ann Ohara - 10/24/17 10:00> Assessment and Plan - Assessment (1) Cellulitis Code(s): L03.90 - Cellulitis, unspecified Status: Acute (2) Sepsis Code(s): A41.9 - Sepsis, unspecified organism Status: Acute (3) Substance abuse Code(s): F19.10 - Other psychoactive substance abuse, uncomplicated Status: Acute (4) Pathological emotionality Code(s): F60.3 - Borderline personality disorder Status: Acute (5) Nutrition, metabolism, and development symptoms Code(s): R63.8 - Other symptoms and signs concerning food and fluid intake Status: Acute <Terence Hartley - 10/24/17 12:37> (1) Cellulitis Code(s): L03.90 - Cellulitis, unspecified Status: Acute Plan: Right leg pain and 4 cm sore with surrounding erythema, swelling, hot to touch. Most likely cellulitis. Low suspicion for DVT at this time -Admitted to observation. -In ED given 2L NS bolus, vancomycin, flagyl, aztreonam, Toradol. -continued on vanc 1g q12hrs with vancomycin consult -one dose of 40 mg prednisone; consider taper if patient finds medication beneficial but did not appear to help her symptoms -marker used to outline extent of erythema which is improving -Pain: PRN Tylenol, narco 5-10, morphine IV for breakthrough -Patient had fever overnight 100.5, increase in WBC count from admission -Ultrasound of the leg was ordered which showed a 12 x 2 x 4 area of fluid collection suggestive of an abscess -Podiatry I&D procedure 10/24 for abscess of right leg -ID consult for antibiotic recommendations (2) Sepsis Code(s): A41.9 - Sepsis, unspecified organism Status: Acute Plan: Qualified for sepsis criteria with elevated white count 11,000 and tachycardia 110 on admission. Lactic acid within normal limits. Blood cultures drawn. urinalysis was positive for leuk esterase but had squamous epithelial cells indicative of contaminated specimen and patient denied any urinary symptoms. Sepsis most likely to to cellulitis. Was started on aztreonam, Flagyl, and Vanc in the ED as well as 2 L NS bolus. -Vancomycin 1g q 12 -BCX no growth to date -LA 2.2 -ID consult for antibiotic recommendations (3) Substance abuse Code(s): F19.10 - Other psychoactive substance abuse, uncomplicated Status: Acute Plan: Heroin use two days ago. 1/2 ppd cigarettes. -UDS positive for amphetamines, opiates, cocaine. -monitor vital signs and withdraw symptoms. -Clonidine 0.1 mg every 8 hours -currently on PRN narco and morphine for leg pain. (4) Pathological emotionality Code(s): F60.3 - Borderline personality disorder Status: Acute Plan: Patient likely has depressive disorder but in the context of substance abuse. Patient is full code at this time. -consider psych consult if indicated, not needed at this time (5) Nutrition, metabolism, and development symptoms Code(s): R63.8 - Other symptoms and signs concerning food and fluid intake Status: Acute Plan: Diet: NPO with meds for procedure then regular diet DVT: Lovenox SQ 40mg daily Electrolytes: replete as needed Disposition: anticipate discharge in 1-2 days pending clinical course, on PO antibiotics. periodontist consult for social needs <Mary Ann Ohara - 10/24/17 09:52> - Assessment and Plan Attending assessment: Patient seen and evaluated with resident team, plans for surgery today. Agree with orders as written by the resident team. Terence Hartley MD 10/20/2013. <Terence Hartley - 10/24/17 12:37> 31-year-old female with history of IV drug use presented with cellulitis of the right lower leg. Initially met SIRS criteria was given aztreonam, vancomycin, Flagyl in the ED. Has been continued on vancomycin. Erythema and pain have improved, patient had a fever of 100.5 and an increase in white count on day 2 of hospitalization. Ultrasound showed 12 x 2 x 4 cm area of fluid collection suggestive of an abscess. Podiatry consulted and I&D procedure 10/24. Blood cultures with no growth to date. Consulted infectious disease. <Mary Ann Ohara - 10/24/17 10:00> <Mary Ann Ohara - Last Filed: 10/24/17 09:52> (1) Cellulitis Qualifiers: Laterality: right <Terence Hartley E - Last Filed: 10/24/17 12:37> (1) Cellulitis Qualifiers: Laterality: right <Mary Ann Ohara C - Last Filed: 10/24/17 09:52> (1) Cellulitis Qualifiers: Laterality: right <Terence Hartley E - Last Filed: 10/24/17 12:37> (1) Cellulitis Qualifiers: Laterality: right
[2017-10-24] MEDS ORDERED: Acetaminophen 325 MG Tablet PO PRN (11:14)
[2017-10-24 11:40] LABS: Baso % (Auto) 0.4 % (0.0-2.0); Eos # (Auto) 0.1 th/mm3 (0.0-0.4); Eos % (Auto) 1.5 % (0.0-4.0); Hematocrit 33.4 % (35.0-46.0); Lymph # (Auto) 1.8 th/mm3 (1.0-4.8); Lymph % (Auto) 18.8 % (9.0-44.0); Mean Corpuscular Hemoglobin 28.2 pg (27.0-34.0); Mean Corpuscular Volume 85.5 fL (80.0-100.0); Mean Platelet Volume 8.3 fL (7.0-11.0); Mono # (Auto) 0.9 th/mm3 (0.0-0.9); Mono % (Auto) 8.9 % (0.0-8.0); Neut # (Auto) 6.8 th/mm3 (1.8-7.7); Neut % (Auto) 70.4 % (16.0-70.0); Platelet Count 178 th/mm3 (150-450); Red Blood Count 3.91 mil/mm3 (4.00-5.30); Red Cell Distribution Width 14.4 % (11.6-17.2); White Blood Count 9.7 th/mm3 (4.0-11.0)
--- NOTE | 2017-10-24 14:54 | MB ---
cc: Yuan Conde MD DATE: 10/24/2017 REQUESTING PHYSICIAN: Dr. Ohara. REASON: Cellulitis of the right leg. Elevated white blood cell count and fevers; ALLERGIC TO PENICILLIN, antibiotic recommendation. HISTORY OF PRESENT ILLNESS: This is a 31-year-old white female who was admitted to the hospital on 10/21/2017 with pain in her right leg. The patient reports that approximately 2 weeks ago, she had a pimple at the right calf which broke after 1 day and drained and then the drainage stopped. She was able to walk and do her usual activities without difficulty. She subsequently developed pain in the area and came to the emergency department on 10/21/2017 to be evaluated. Temperature was 99.9 max on the day she presented. After that, she started having fevers including temperature of 101.5 degrees yesterday. She was evaluated by podiatry and plans are to take him for drainage of the left calf abscess. There is a line of demarcation outlining the area of cellulitis on the right leg, which causes the lateral posterior aspect of the right leg from the knee down to the ankle. I see no redness within the boundary of the demarcation. She has drainage coming from an open wound at the right calf. The fluid is slightly thakur colored. She had white count elevation of 15.5 yesterday and the white count is now down to 9.7. Blood cultures taken on admission have no growth. Her last maximum temperature was 100.4 degrees this morning. The patient denies other symptoms. She states; however, that she had fever before she came to the emergency department. PAST MEDICAL HISTORY: History of ureteral stent and lithotripsy. History of left arm surgery for infection, IV drug abuse. ALLERGIES: AMOXICILLIN AND PENICILLIN. MEDICATIONS: 1. Vancomycin. 2. Sofi-Colace. 3. Morphine sulfate p.r.n. 4. [place] 5. 5. Tylenol. PHYSICAL EXAMINATION: VITAL SIGNS: Temperature 99 degrees. BP 104/58, respirations 18, heart rate 91. HEENT: Head is atraumatic. Extraocular movements grossly intact. Pupils reactive to light. No icterus. Oropharynx: No lesions. NECK: Supple without adenopathy. LUNGS: Clear breath sounds. HEART: Regular S1, S2. No murmurs, rubs or gallops. ABDOMEN: Flat, soft, nontender. RECTAL: Not performed. EXTREMITIES: Right leg is markedly swollen at the calf. The calf is tender to palpation. There is a tiny opening and drainage of thakur colored secretions. The entire right foot and ankle has 2+ edema. SKIN: No diffuse rash. NEUROLOGIC: Alert and oriented. No gross focal findings. PSYCHIATRIC: The patient is calm and cooperative. LABORATORY DATA: WBC 9.7, platelets 178. hemoglobin 11.0, 70% neutrophils, 18% lymphocytes, 8% monocytes, creatinine 0.47, BUN 10, sodium 138. IMPRESSION AND PLAN: Left calf abscess. The patient having drainage coming from the wound. She is due to undergo I and D by podiatry today. RECOMMENDATIONS: 1. Continue vancomycin. 2. Await culture to be taken by podiatry to determine antibiotics for the patient. Without the culture information it is not possible to give a final determination of appropriate antibiotics in this patient. If podiatry has a change in plan, please send wound drainage for culture and once identity and sensitivity of organism is available, antibiotic can be selected based on results. The patient notes that she has had history of MRSA in the past. Thank you for this consultation. I would be off the next 2 days. Please call the infectious disease doctor informatics consultant if the culture becomes available and input is needed on the weekend. MD BESSIE Scott/[email or web address]/robert , 02:06 PM , 02:27 PM
[2017-10-24] MEDS: Enoxaparin Inj 40 MG/0.4 ML Syringe SQ SCH (15:37)
--- NOTE | 2017-10-24 18:15 | P.PNPOD ---
Physical Exam Vital signs: Vital Signs 10/23/17 18:44 10/23/17 18:45 10/23/17 19:07 Temperature 98.6 F 98.6 F Pulse Rate 91 H 91 H Respiratory Rate 20 16 Blood Pressure 109/56 L Pulse Oximetry 96 10/23/17 19:44 10/23/17 20:00 10/24/17 00:00 Temperature 101.5 F H 100.4 F H Pulse Rate 86 97 H Respiratory Rate 16 16 15 Blood Pressure 101/60 108/57 L Pulse Oximetry 100 97 10/24/17 02:22 10/24/17 04:00 10/24/17 08:00 Temperature 99.8 F H 99 F Pulse Rate 91 H 90 Respiratory Rate 18 18 22 Blood Pressure 104/58 L 100/60 Pulse Oximetry 96 99 10/24/17 09:17 10/24/17 09:47 10/24/17 12:00 Temperature 98.5 F Pulse Rate 95 H Respiratory Rate 16 22 14 Blood Pressure 110/60 Pulse Oximetry 98 10/24/17 13:10 Temperature Pulse Rate Respiratory Rate 22 Blood Pressure Pulse Oximetry Intake & Output 10/23/17 10/24/17 10/24/17 18:59 06:59 18:59 Intake Total 262.5 / 262.5 525.0 / 525.0 Balance 262.5 / 262.5 525.0 / 525.0 Weight 63.5 kg 65.6 kg Intake: IV 262.5 / 262.5 525.0 / 525.0 Vancomycin Inj 1,250 MG In NS 262.5 / 262.5 525.0 / 525.0 Inj 250 ML @ 250 mls/hr IV.SIG Q8H [facility] Rx#:[id number] Other: # Voids 1 1 Weight On Admission 63.503 kg Medications and Allergies Active Medications: Active Medications Acetaminophen (Tylenol) 650 mg PO Q6HR PRN PRN Reason: PAIN SCALE 1 TO 2 Last Admin: 10/23/17 21:10 Dose: 650 mg Acetaminophen (Tylenol) 325 mg PO Q4H PRN PRN Reason: FEVER > 100.4 F Hydrocodone Bitart/Acetaminophen ([place] 10/325) 1 tab PO Q4H PRN PRN Reason: PAIN SCALE 6 TO 10 Last Admin: 10/24/17 17:17 Dose: 1 tab Hydrocodone Bitart/Acetaminophen ([place] 5/325) 1 tab PO Q4H PRN PRN Reason: PAIN SCALE 3 TO 5 Last Admin: 10/22/17 21:42 Dose: 1 tab Al Hydroxide/Mg Hydroxide (Milk Of Magnesia Liq) 30 ml PO Q12H PRN PRN Reason: Mild Constipation Bisacodyl (Dulcolax Supp) 10 mg RECTAL DAILY PRN PRN Reason: SEVERE CONSITIPATION Chlorhexidine Gluconate (Chlorhexidine 2% Cloth) 3 pack [employer] [facility] Stop: 10/27/17 03:23 Clonidine HCl (Catapres) 0.1 mg PO Q8HR [facility] Last Admin: 10/24/17 15:37 Dose: Not Given Enoxaparin Sodium (Lovenox Inj) 40 mg SQ Q24H [facility] Last Admin: 10/24/17 15:37 Dose: Not Given Sodium Chloride (Ns Inj) 1,000 mls @ 0 mls/hr IV.SIG .Q0M [facility] Last Infusion: 10/21/17 13:50 Dose: Infused Sodium Chloride (Ns Inj) 1,000 mls @ 0 mls/hr IV.SIG .Q0M [facility] Vancomycin HCl 1,250 mg/ (Sodium Chloride) 262.5 mls @ 250 mls/hr IV.SIG Q8H [facility] Last Infusion: 10/24/17 14:31 Dose: 250 mls/hr Lactated Ringer's (Lr 1000 Ml Inj) 1,000 mls @ 30 mls/hr IV.SIG .Q24H [facility] Stop: 10/27/17 03:23 Last Admin: 10/24/17 07:03 Dose: Not Given Sodium Chloride (Ns Inj) 500 mls @ 30 mls/hr IV.SIG .Q10H [facility] Stop: 10/27/17 03:23 Lactulose (Lactulose Liq) 30 ml PO DAILY PRN PRN Reason: SEVERE CONSITIPATION Miscellaneous Information ([facility] Ordered Lab Info) 0 each OTHER ONCE ONE Stop: 10/25/17 03:46 Morphine Sulfate (Morphine Inj) 2 mg IV.PUSH Q3H PRN PRN Reason: BREAKTHROUGH PAIN Last Admin: 10/24/17 15:50 Dose: 2 mg Naloxone HCl (Narcan Inj) 0.4 mg IV.PUSH UNSCH PRN PRN Reason: SEE LABEL COMMENTS Ondansetron HCl (Zofran Inj) 4 mg IV.PUSH Q6H PRN PRN Reason: NAUSEA OR VOMITING Pharmacy Profile Note (Vancomycin Consult Pharmacy) 1 each OTHER UNSCH PRN PRN Reason: Pharmacy to dose Povidone Iodine (Betadine 5% Antisepsis Kit) 1 applicatio EACH [employer] [facility] Stop: 10/27/17 03:23 Senna/Docusate Sodium (Sofi-Colace) 1 tab PO BID [facility] Last Admin: 10/24/17 08:02 Dose: Not Given Sennosides (Senokot) 17.2 mg PO Q12H PRN PRN Reason: Moderate Constipation Allergies Allergy/AdvReac Type Severity Reaction Status Date / Time amoxicillin Allergy Unknown Rash Verified 10/21/17 10:41 Penicillins Allergy Unknown Rash Verified 10/21/17 10:41 Home Medications Medication Instructions Recorded Confirmed Type No Known Home Medications 10/21/17 10/21/17 History Results - Labs CBC & Chem 7: 10/24/17 10:31 10/24/17 06:14 Laboratory Results - last 24 hr 10/23/17 10/23/17 10/24/17 19:03 19:03 06:14 WBC RBC Hgb Hct MCV MCH MCHC RDW Plt Count MPV Neut % (Auto) Lymph % (Auto) [place] % (Auto) Eos % (Auto) Baso % (Auto) Neut # (Auto) Lymph # (Auto) [place] # (Auto) Eos # (Auto) Baso # (Auto) WBC Differential Differential Comment Sodium 138 Potassium 4.4 D Chloride 106 Carbon Dioxide 23.0 Anion Gap 9 BUN 10 Creatinine 0.47 L Estimated GFR Greater than 89 Random Glucose 72 L Lactic Acid 2.2 H Calcium 8.2 L Vancomycin Trough 17.8 H 10/24/17 10:31 WBC 9.7 RBC 3.91 L Hgb 11.0 L Hct 33.4 L MCV 85.5 MCH 28.2 MCHC 33.0 RDW 14.4 Plt Count 178 MPV 8.3 Neut % (Auto) 70.4 H Lymph % (Auto) 18.8 Brewster % (Auto) 8.9 H Eos % (Auto) 1.5 Baso % (Auto) 0.4 Neut # (Auto) 6.8 Lymph # (Auto) 1.8 [place] # (Auto) 0.9 Eos # (Auto) 0.1 Baso # (Auto) 0.0 WBC Differential . Differential Comment Auto diff final Sodium Potassium Chloride Carbon Dioxide Anion Gap BUN Creatinine Estimated GFR Random Glucose Lactic Acid Calcium Vancomycin Trough Microbiology 10/21/17 11:41 Blood - Peripheral Aerobic Blood Culture - Preliminary No growth in 3 days 10/21/17 11:41 Blood - Peripheral Anaerobic Blood Culture - Preliminary No growth in 3 days 10/21/17 11:51 Blood - Peripheral Aerobic Blood Culture - Preliminary No growth in 3 days 10/21/17 11:51 Blood - Peripheral Anaerobic Blood Culture - Preliminary No growth in 3 days Assessment and Plan - Assessment (1) Abscess of right leg Code(s): L02.415 - Cutaneous abscess of right lower limb Status: Acute Plan: NPO after midnight tonight. OR was booked tonight and could not do case Plan to OR tomorrow morning I&D R abscess (2) Cellulitis Code(s): L03.90 - Cellulitis, unspecified Status: Acute (2) Cellulitis Qualifiers: Laterality: right
[2017-10-25] MEDS ORDERED: Pharmacy Ordered Lab Info OTHER ONE (03:45)
[2017-10-25 04:42] LABS: Baso # (Auto) 0.1 th/mm3 (0.0-0.2); Baso % (Auto) 0.9 % (0.0-2.0); Eos # (Auto) 0.5 th/mm3 (0.0-0.4); Eos % (Auto) 6.4 % (0.0-4.0); Hematocrit 32.6 % (35.0-46.0); Hemoglobin 10.9 gm/dL (11.6-15.3); Lymph # (Auto) 2.5 th/mm3 (1.0-4.8); Lymph % (Auto) 30.6 % (9.0-44.0); Mean Corpuscular HGB Conc 33.6 % (32.0-36.0); Mean Corpuscular Hemoglobin 28.5 pg (27.0-34.0); Mean Corpuscular Volume 84.8 fL (80.0-100.0); Mean Platelet Volume 7.8 fL (7.0-11.0); Mono # (Auto) 0.8 th/mm3 (0.0-0.9); Neut # (Auto) 4.2 th/mm3 (1.8-7.7); Neut % (Auto) 52.1 % (16.0-70.0); Platelet Count 192 th/mm3 (150-450); Red Blood Count 3.84 mil/mm3 (4.00-5.30); Red Cell Distribution Width 14.3 % (11.6-17.2); White Blood Count 8.1 th/mm3 (4.0-11.0)
[2017-10-25 05:06] LABS: Anion Gap 7 meq/L (5-15); Blood Urea Nitrogen 15 mg/dL (7-18); Calcium 8.3 mg/dL (8.5-10.1); Carbon Dioxide 30.1 meq/L (21.0-32.0); Chloride 102 meq/L (98-107); Glomerular Filtration Rate Greater Than 89 mL/min (>89); Glucose,Random 91 mg/dL (74-106); Potassium 4.2 meq/L (3.5-5.1); Sodium 139 meq/L (136-145)
[2017-10-25 05:07] LABS: Vancomycin,Trough 10.1 mcg/mL (5.0-10.0)
[2017-10-25] MEDS: Vancomycin Inj 1,250 MG in Sodium Chlor 0.9% Inj 250 ML IV.SIG SCH ×4 (05:28→18:28)
[2017-10-25] MEDS: Morphine Inj 4 MG/ML Vial IV.PUSH PRN ×4 (05:36→22:08)
[2017-10-25] MEDS ORDERED: Lidocaine PF 1% Inj 5 ML Syringe INFILTRATN ONE (08:00)
--- NOTE | 2017-10-25 08:36 | P.PNFP ---
Subjective Interval history: Patient says that pain has improved and only occurs when walking. She states that ever since first started draining has been less painful. Still having some swelling of her left arm and then the IV was changed to her right arm. Overnight the IV would not flush the vascular access team has been consulted to re-establish access. There were no openings in OR last night the patient is n.p.o. currently and will go procedure this morning. She was able to eat and drink at night and does not have any complaints of nausea, chest pain or shortness of breath. <Mary Ann Ohara - 10/25/17 08:35> Results - Labs Result diagrams: 10/25/17 04:17 10/25/17 04:17 <Gayatri Wolfe - 10/26/17 13:44> Abnormal lab results 10/24/17 10/24/17 10/25/17 Range/Units 06:14 10:31 04:17 RBC 3.91 L (4.00-5.30) mil/mm3 Hgb 11.0 L (11.6-15.3) gm/dL Hct 33.4 L (35.0-46.0) % Neut % (Auto) 70.4 H (16.0-70.0) % Alexander % (Auto) 8.9 H (0.0-8.0) % Eos % (Auto) (0.0-4.0) % Eos # (Auto) (0.0-0.4) th/mm3 Creatinine 0.47 L (0.50-1.00) mg/dL Random Glucose 72 L (74-106) mg/dL Calcium 8.2 L 8.3 L (8.5-10.1) mg/dL Vancomycin Trough 10.1 H (5.0-10.0) mcg/mL 10/25/17 Range/Units 04:17 RBC 3.84 L (4.00-5.30) mil/mm3 Hgb 10.9 L (11.6-15.3) gm/dL Hct 32.6 L (35.0-46.0) % Neut % (Auto) (16.0-70.0) % Alexander % (Auto) 10.0 H (0.0-8.0) % Eos % (Auto) 6.4 H (0.0-4.0) % Eos # (Auto) 0.5 H (0.0-0.4) th/mm3 Creatinine (0.50-1.00) mg/dL Random Glucose (74-106) mg/dL Calcium (8.5-10.1) mg/dL Vancomycin Trough (5.0-10.0) mcg/mL Short CBC 10/24/17 10/25/17 Range/Units 10:31 04:17 WBC 9.7 8.1 (4.0-11.0) th/mm3 Hgb 11.0 L 10.9 L (11.6-15.3) gm/dL Hct 33.4 L 32.6 L (35.0-46.0) % Plt Count 178 192 (150-450) th/mm3 BMP 10/24/17 10/25/17 06:14 04:17 Sodium 138 139 Potassium 4.4 D 4.2 Chloride 106 102 Carbon Dioxide 23.0 30.1 BUN 10 15 Creatinine 0.47 L 0.58 Calcium 8.2 L 8.3 L <Mary Ann Ohara - 10/25/17 08:35> Physical Exam Vital signs: Vital Signs 10/25/17 16:00 10/26/17 00:50 10/26/17 03:50 Temperature 98.1 F 97.7 F 98.7 F Pulse Rate 90 67 68 Respiratory Rate 16 17 16 Blood Pressure 118/59 L 117/67 123/63 Pulse Oximetry 97 97 96 Intake & Output 10/25/17 10/26/17 10/26/17 18:59 06:59 18:59 Intake Total 982.5 / 982.5 1474.5 / 1474.5 Balance 982.5 / 982.5 1474.5 / 1474.5 Weight 65.6 kg Intake: IV 262.5 / 262.5 524.5 / 524.5 Vancomycin Inj 1,250 MG In NS 262.5 / 262.5 524.5 / 524.5 Inj 250 ML @ 250 mls/hr IV.SIG Q8H [facility] Rx#:[id number] Oral 720 / 720 950 / 950 Other: # Voids 3 4 # Bowel Movements 0 <Gayatri Wolfe - 10/26/17 13:44> Vital Signs 10/24/17 09:17 10/24/17 09:47 10/24/17 12:00 Temperature 98.5 F Pulse Rate 95 H Respiratory Rate 16 22 14 Blood Pressure 110/60 Pulse Oximetry 98 10/24/17 13:10 10/24/17 16:00 10/24/17 20:00 Temperature 99 F 99.4 F Pulse Rate 90 94 H Respiratory Rate 22 22 18 Blood Pressure 100/56 L 106/59 L Pulse Oximetry 98 99 10/25/17 00:00 10/25/17 04:00 Temperature 100.1 F H 98.5 F Pulse Rate 97 H 86 Respiratory Rate 20 20 Blood Pressure 97/52 L 107/61 Pulse Oximetry 96 95 Intake & Output 10/24/17 10/25/17 10/25/17 18:59 06:59 18:59 Intake Total 500 / 500 262.5 / 262.5 Balance 500 / 500 262.5 / 262.5 Weight 65.6 kg Intake: IV 262.5 / 262.5 Vancomycin Inj 1,250 MG In NS 262.5 / 262.5 Inj 250 ML @ 250 mls/hr IV.SIG Q8H [facility] Rx#:[id number] Oral 500 / 500 0 / 0 Other: # Voids 4 # Urine Diapers 3 <Mary Ann Ohara C - 10/25/17 08:35> Narrative: SKIN: Warm and dry. Postsurgical scar on the right arm. Right lower extremity with infectious lesion on mid-calf which is non-draining. The area of erythema is drastically reduced from yesterday. 4cm lesion is still erythematous and raised. Warm and tense leg. Less tender to palpation in prior exam. Draining serous sanguinous fluid. Right arm swollen mid forearm HEAD: Atraumatic. Normocephalic. EYES: Pupils equal and round. No scleral icterus. No injection or drainage. ENT: No nasal bleeding or discharge. Mucous membranes pink and moist. NECK: Trachea midline. No JVD. CARDIOVASCULAR: Regular rate and rhythm. 2+ dorsalis pedis pulses bilaterally. RESPIRATORY: No accessory muscle use. Clear to auscultation. Breath sounds equal bilaterally. Of note, small plastic container noted in the patient's bra. GASTROINTESTINAL: Abdomen soft, non-tender, nondistended. Hepatic and splenic margins not palpable. MUSCULOSKELETAL: Moving all extremities with grossly normal strength. NEUROLOGICAL: Awake and alert. No obvious cranial nerve deficits. Motor grossly within normal limits. Normal speech. PSYCHIATRIC: Appropriate mood and affect; insight and judgment normal. <Mary Ann Ohara - 10/25/17 08:35> Assessment and Plan - Assessment (1) Cellulitis Code(s): L03.90 - Cellulitis, unspecified Status: Acute (2) Sepsis Code(s): A41.9 - Sepsis, unspecified organism Status: Acute (3) Substance abuse Code(s): F19.10 - Other psychoactive substance abuse, uncomplicated Status: Acute (4) Pathological emotionality Code(s): F60.3 - Borderline personality disorder Status: Acute (5) Nutrition, metabolism, and development symptoms Code(s): R63.8 - Other symptoms and signs concerning food and fluid intake Status: Acute <Gayatri Wolfe - 10/26/17 13:44> (1) Cellulitis Code(s): L03.90 - Cellulitis, unspecified Status: Acute Plan: Right leg pain and 4 cm sore with surrounding erythema, swelling, hot to touch. Most likely cellulitis. Low suspicion for DVT at this time -Admitted to observation. -In ED given 2L NS bolus, vancomycin, flagyl, aztreonam, Toradol. -continued on vanc 1g q12hrs with vancomycin consult -one dose of 40 mg prednisone; consider taper if patient finds medication beneficial but did not appear to help her symptoms -marker used to outline extent of erythema which is improving -Pain: PRN Tylenol, narco 5-10, morphine IV for breakthrough -Patient had fever overnight 100.5, increase in WBC count from admission -Ultrasound of the leg was ordered which showed a 12 x 2 x 4 area of fluid collection suggestive of an abscess -Podiatry I&D procedure 10/25 for abscess of right leg -ID consult for antibiotic recommendations: Continue vanc and consider wound cultures from procedure (2) Sepsis Code(s): A41.9 - Sepsis, unspecified organism Status: Acute Plan: Qualified for sepsis criteria with elevated white count 11,000 and tachycardia 110 on admission. Lactic acid within normal limits. Blood cultures drawn. urinalysis was positive for leuk esterase but had squamous epithelial cells indicative of contaminated specimen and patient denied any urinary symptoms. Sepsis most likely to to cellulitis. Was started on aztreonam, Flagyl, and Vanc in the ED as well as 2 L NS bolus. -Vancomycin 1g q 12 -BCX no growth to date -LA 2.2 -ID consult for antibiotic recommendations: continue vanc and consider wound cultures during procedure (3) Substance abuse Code(s): F19.10 - Other psychoactive substance abuse, uncomplicated Status: Acute Plan: Heroin use two days ago. 1/2 ppd cigarettes. -UDS positive for amphetamines, opiates, cocaine. -monitor vital signs and withdraw symptoms. -Clonidine 0.1 mg every 8 hours -currently on PRN narco and morphine for leg pain. (4) Pathological emotionality Code(s): F60.3 - Borderline personality disorder Status: Acute Plan: Patient likely has depressive disorder but in the context of substance abuse. Patient is full code at this time. -consider psych consult if indicated, not needed at this time (5) Nutrition, metabolism, and development symptoms Code(s): R63.8 - Other symptoms and signs concerning food and fluid intake Status: Acute Plan: Diet: NPO with meds for procedure then regular diet DVT: Lovenox SQ 40mg daily Electrolytes: replete as needed Disposition: anticipate discharge in 1-2 days pending clinical course, on PO antibiotics. correctional officer lieutenant consult for social needs <Mary Ann Ohara - 10/25/17 08:28> - Assessment and Plan 31-year-old female with history of IV drug use presented with cellulitis of the right lower leg. Initially met SIRS criteria was given aztreonam, vancomycin, Flagyl in the ED. Has been continued on vancomycin. Erythema and pain have improved, patient had a fever of 100.5 and an increase in white count on day 2 of hospitalization. Ultrasound showed 12 x 2 x 4 cm area of fluid collection suggestive of an abscess. Podiatry consulted and I&D right leg abscess procedure 10/25. Blood cultures with no growth to date. Consulted infectious disease who recommended continuing on vancomycin for now. <Mary Ann Ohara - 10/25/17 08:35> - Attending Attestation The exam, history, and the medical decision-making described in the above note were completed with the assistance of the resident physician. I reviewed and agree with the findings presented. I attest that I had a [id number] encounter with the patient on the same day, and personally performed and documented my assessment and findings in the medical record. I saw her after surgery her leg was well bandaged and she complained about pain but otherwise did not have any complaints. <Gayatri Wolfe - 10/26/17 13:44> <Mary Ann Ohara Filed: 10/25/17 08:28> (1) Cellulitis Qualifiers: Laterality: right <Gayatri Wolfe - Last Filed: 10/26/17 13:44> (1) Cellulitis Qualifiers: Laterality: right <Mary Ann Ohara Filed: 10/25/17 08:28> (1) Cellulitis Qualifiers: Laterality: right <Gayatri Wolfe Filed: 10/26/17 13:44> (1) Cellulitis Qualifiers: Laterality: right
[2017-10-25] MEDS ORDERED: fentaNYL Citrate Inj 100 MCG/2 ML Ampul ONE (11:50)
[2017-10-25] MEDS ORDERED: *Meperidine Inj 25 MG/ML Vial PERIprocedural Use ONLY ONE (11:55)
--- NOTE | 2017-10-25 12:00 | P.BOP ---
- Preoperative Diagnosis (1) Abscess of right leg - Postoperative Diagnosis (1) Abscess of right leg Date of procedure: 10/25/17 Procedure: Incision and drainage of abscess right leg Posteromedial right calf with open area 1cm diameter with purulent drainage. Minimal surrounding erythema. Abscess area probed proximally up the superficial fat layer approximately 12cm and was approximately 4cm width. Incision made at open area proximally and distally an additional 2cm and rongeur/curette utilized to debride devitalized tissue from the abscessed area, deep culture taken, followed by irrigation with 3L saline with gentamicin. Partial closure with 2-0 nylon suture and packing of the area with 1/2'' iodoform gauze, dressing with 4x4, abd, cast padding, shy R leg. No tourniquet Await cultures Continue IV antibiotics Will need follow up at [facility] [facility] arranged prior to discharge per case management. Anesthesia: JASEN Surgeon: Antia Bautista DPM Commissary Worker: staff Estimated blood loss (mL): 20 Pathology: other (culture right leg) Condition: stable Disposition: PACU
[2017-10-25] MEDS ORDERED: *morphine SULFATE 10 MG/ML PERIprocedure ONLY ONE (12:05)
[2017-10-25] MEDS: Enoxaparin Inj 40 MG/0.4 ML Syringe SQ SCH (17:45)
[2017-10-25] MEDS: Senna/Docusate Sodium 8.6/50 MG Tablet PO SCH ×2 (18:01→22:11)
--- NOTE | 2017-10-25 18:14 | MP ---
cc: Anita Bautista DPM DATE OF OPERATION: 10/25/2017 INDICATIONS: This patient presented with redness and swelling to the right leg. She was noted to have a large abscess confirmed with ultrasound. I discussed with her the risks, benefits, and potential complications of surgery and that she needed to undergo incision and drainage of abscess, right leg. She agreed to move forward with surgery. She was seen in preoperative holding by myself, nursing staff, and anesthesia where the correct patient, side, and site were all confirmed to be correct in the right leg. She was then taken to the surgical suite in supine position. Right leg was prepped and draped in normal sterile fashion. Following timeout as per facility protocol, attention was directed to the posteromedial right calf area where there was noted to be approximately 1 cm diameter area of the medial gastrocnemius muscle head. There was minimal surrounding erythema noted at this time as the patient has been in-house getting IV antibiotics for a few days. The abscessed area did probe proximally up the superficial fatty layer, approximately 12 cm, and was approximately 4 cm in width. An incision was made at the open area and continued proximally an additional 2 cm and distally an additional 2 cm. Following this, a rongeur and curette were utilized in order to debride all the devitalized tissue from the abscessed area. Deep culture was taken followed by irrigation with 3 L of normal saline plus gentamicin. Following this, partial closure of the distal aspect was performed with 2-0 nylon suture, followed by packing of the area proximally with 0.5 inch iodoform gauze followed by dressing consisting of 4 x 4's, ABD, cast padding, and Ashwin bandage to the right leg. She tolerated the procedure and anesthesia well without complications and was taken back to PACU with vital signs stable and vascular status intact to the right lower extremity. She will be weightbearing as tolerated. We will await cultures before discharge on oral antibiotics, and she will need to get followup at the [facility] that needs to be arranged prior to discharge per case management as she will likely be unable to follow up in my clinic due to having to pay. SHORT OPERATIVE NOTE SURGEON: Anita Bautista DPM GRIEVANCE MANAGER: Staff. PREOPERATIVE DIAGNOSIS: Abscess, right leg. POSTOPERATIVE DIAGNOSIS: Abscess, right leg. PROCEDURE PERFORMED: Incision and drainage of abscess, right leg. PATHOLOGY: Culture, right leg. ESTIMATED BLOOD LOSS: 20 mL ANESTHESIA: General endotracheal anesthesia. HEMOSTASIS: No tourniquet utilized. CONDITION: Stable to PACU. DISPOSITION: Weightbear as tolerated, right lower extremity. RECOMMENDATIONS: Await cultures. Continue IV antibiotics. She will need followup at wound care center upon discharge. KAYLEE Pennington/henrietta , 04:47 PM , 04:53 PM
[2017-10-26] MEDS: Morphine Inj 4 MG/ML Vial IV.PUSH PRN ×5 (01:56→20:42)
[2017-10-26] MEDS: Vancomycin Inj 1,250 MG in Sodium Chlor 0.9% Inj 250 ML IV.SIG SCH ×5 (01:59→21:59)
--- NOTE | 2017-10-26 09:27 | P.PNPOD ---
Subjective Interval history: s/p I&D R medial calf 10/25/17 Dr Bautista Physical Exam Vital signs: Vital Signs 10/25/17 11:50 10/25/17 12:00 10/25/17 12:15 Temperature 97.6 F 97.9 F Pulse Rate 107 H 80 90 Respiratory Rate 16 16 16 Blood Pressure 106/69 107/61 107/69 Pulse Oximetry 100 99 10/25/17 12:16 10/25/17 12:20 10/25/17 16:00 Temperature 98.4 F 98.1 F Pulse Rate 87 90 Respiratory Rate 16 16 Blood Pressure 110/70 118/59 L Pulse Oximetry 98 98 97 10/26/17 00:50 10/26/17 03:50 Temperature 97.7 F 98.7 F Pulse Rate 67 68 Respiratory Rate 17 16 Blood Pressure 117/67 123/63 Pulse Oximetry 97 96 Intake & Output 10/25/17 10/26/17 10/26/17 18:59 06:59 18:59 Intake Total 982.5 / 982.5 1474.5 / 1474.5 Balance 982.5 / 982.5 1474.5 / 1474.5 Weight 65.6 kg Intake: IV 262.5 / 262.5 524.5 / 524.5 Vancomycin Inj 1,250 MG In NS 262.5 / 262.5 524.5 / 524.5 Inj 250 ML @ 250 mls/hr IV.SIG Q8H [facility] Rx#:[id number] Oral 720 / 720 950 / 950 Other: # Voids 3 4 # Bowel Movements 0 Narrative: Bandage clean, dry, intact right lower extremity with packing intact. Significantly reduced erythema. Medications and Allergies Active Medications: Active Medications Acetaminophen (Tylenol) 650 mg PO Q6HR PRN PRN Reason: PAIN SCALE 1 TO 2 Last Admin: 10/23/17 21:10 Dose: 650 mg Acetaminophen (Tylenol) 325 mg PO Q4H PRN PRN Reason: FEVER > 100.4 F Hydrocodone Bitart/Acetaminophen ([place] 10/325) 1 tab PO Q4H PRN PRN Reason: PAIN SCALE 6 TO 10 Last Admin: 10/26/17 04:35 Dose: 1 tab Hydrocodone Bitart/Acetaminophen ([place] 5/325) 1 tab PO Q4H PRN PRN Reason: PAIN SCALE 3 TO 5 Last Admin: 10/22/17 21:42 Dose: 1 tab Al Hydroxide/Mg Hydroxide (Milk Of Magnesia Liq) 30 ml PO Q12H PRN PRN Reason: Mild Constipation Bisacodyl (Dulcolax Supp) 10 mg RECTAL DAILY PRN PRN Reason: SEVERE CONSITIPATION Chlorhexidine Gluconate (Chlorhexidine 2% Cloth) 3 pack [employer]ICAL RETAIL MARKETING COORDINATOR [facility] Stop: 10/27/17 03:23 Clonidine HCl (Catapres) 0.1 mg PO Q8HR [facility] Last Admin: 10/26/17 07:23 Dose: Not Given Enoxaparin Sodium (Lovenox Inj) 40 mg SQ Q24H [facility] Last Admin: 10/25/17 17:45 Dose: Not Given Sodium Chloride (Ns Inj) 1,000 mls @ 0 mls/hr IV.SIG .Q0M [facility] Last Infusion: 10/21/17 13:50 Dose: Infused Sodium Chloride (Ns Inj) 1,000 mls @ 0 mls/hr IV.SIG .Q0M [facility] Lactated Ringer's (Lr 1000 Ml Inj) 1,000 mls @ 30 mls/hr IV.SIG .Q24H [facility] Stop: 10/27/17 03:23 Last Admin: 10/26/17 04:31 Dose: Not Given Sodium Chloride (Ns Inj) 500 mls @ 30 mls/hr IV.SIG .Q10H [facility] Stop: 10/27/17 03:23 Vancomycin HCl 1,250 mg/ (Sodium Chloride) 262.5 mls @ 250 mls/hr IV.SIG Q8H [facility] Last Admin: 10/26/17 03:00 Dose: Not Given Lactulose (Lactulose Liq) 30 ml PO DAILY PRN PRN Reason: SEVERE CONSITIPATION Miscellaneous Information (Misc Nursing Information) 1 each OTHER UNSCH PRN PRN Reason: SEE LABEL COMMENTS Stop: 10/26/17 11:52 Morphine Sulfate (Morphine Inj) 2 mg IV.PUSH Q3H PRN PRN Reason: BREAKTHROUGH PAIN Last Admin: 10/26/17 05:19 Dose: 2 mg Naloxone HCl (Narcan Inj) 0.4 mg IV.PUSH UNSCH PRN PRN Reason: SEE LABEL COMMENTS Ondansetron HCl (Zofran Inj) 4 mg IV.PUSH Q6H PRN PRN Reason: NAUSEA OR VOMITING Pharmacy Profile Note (Vancomycin Consult Pharmacy) 1 each OTHER UNSCH PRN PRN Reason: Pharmacy to dose Povidone Iodine (Betadine 5% Antisepsis Kit) 1 applicatio EACH [employer] MARKETING COORDINATOR [facility] Stop: 10/27/17 03:23 Senna/Docusate Sodium (Sofi-Colace) 1 tab PO BID [facility] Last Admin: 10/25/17 22:11 Dose: 1 tab Sennosides (Senokot) 17.2 mg PO Q12H PRN PRN Reason: Moderate Constipation Allergies Allergy/AdvReac Type Severity Reaction Status Date / Time amoxicillin Allergy Unknown Rash Verified 10/21/17 10:41 Penicillins Allergy Unknown Rash Verified 10/21/17 10:41 Home Medications Medication Instructions Recorded Confirmed Type No Known Home Medications 10/21/17 10/21/17 History Results - Labs CBC & Chem 7: 10/25/17 04:17 10/25/17 04:17 Microbiology 10/25/17 11:33 Abscess - Leg Fungal Smear - Final No fungal elements seen 10/25/17 11:33 Abscess - Leg Gram Stain - Final 10/21/17 11:41 Blood - Peripheral Aerobic Blood Culture - Preliminary No growth in 4 days 10/21/17 11:41 Blood - Peripheral Anaerobic Blood Culture - Preliminary No growth in 4 days 10/21/17 11:51 Blood - Peripheral Aerobic Blood Culture - Preliminary No growth in 4 days 10/21/17 11:51 Blood - Peripheral Anaerobic Blood Culture - Preliminary No growth in 4 days Assessment and Plan - Assessment (1) Abscess of right leg Code(s): L02.415 - Cutaneous abscess of right lower limb Status: Acute Plan: S/p I&D R abscess 10/25/17 Will need to be taught how to change packing daily prior to discharge vs residential case manager to arrange home health nursing with daily packing changes. Patient must have follow up at wound care center prior to discharge, or else she is not clear for discharge. Weightbearing as tolerated right lower extremity. Keep leg clean, dry, bandage intact. (2) Cellulitis Code(s): L03.90 - Cellulitis, unspecified Status: Acute (2) Cellulitis Qualifiers: Laterality: right
[2017-10-26] MEDS ORDERED: Pharmacy Ordered Lab Info OTHER ONE (09:45)
[2017-10-26] MEDS: Senna/Docusate Sodium 8.6/50 MG Tablet PO SCH ×2 (10:02→21:59)
--- NOTE | 2017-10-26 10:39 | P.PNFP ---
Subjective Interval history: Patient says she is going through withdrawals. He is having nausea, diarrhea chills, and shaking. She said her leg pain has decreased and the swelling has improved. Denies any chest pain or shortness of breath. <Mary Ann Ohara C - 10/26/17 10:39> Results - Labs Result diagrams: 10/25/17 04:17 10/25/17 04:17 <Gayatri Wolfe - 10/26/17 13:46> Physical Exam Vital signs: Vital Signs 10/25/17 16:00 10/26/17 00:50 10/26/17 03:50 Temperature 98.1 F 97.7 F 98.7 F Pulse Rate 90 67 68 Respiratory Rate 16 17 16 Blood Pressure 118/59 L 117/67 123/63 Pulse Oximetry 97 97 96 Intake & Output 10/25/17 10/26/17 10/26/17 18:59 06:59 18:59 Intake Total 982.5 / 982.5 1474.5 / 1474.5 Balance 982.5 / 982.5 1474.5 / 1474.5 Weight 65.6 kg Intake: IV 262.5 / 262.5 524.5 / 524.5 Vancomycin Inj 1,250 MG In NS 262.5 / 262.5 524.5 / 524.5 Inj 250 ML @ 250 mls/hr IV.SIG Q8H [facility] Rx#:[id number] Oral 720 / 720 950 / 950 Other: # Voids 3 4 # Bowel Movements 0 <Gayatri Wolfe M - 10/26/17 13:46> Vital Signs 10/25/17 11:50 10/25/17 12:00 10/25/17 12:15 Temperature 97.6 F 97.9 F Pulse Rate 107 H 80 90 Respiratory Rate 16 16 16 Blood Pressure 106/69 107/61 107/69 Pulse Oximetry 100 99 10/25/17 12:16 10/25/17 12:20 10/25/17 16:00 Temperature 98.4 F 98.1 F Pulse Rate 87 90 Respiratory Rate 16 16 Blood Pressure 110/70 118/59 L Pulse Oximetry 98 98 97 10/26/17 00:50 10/26/17 03:50 Temperature 97.7 F 98.7 F Pulse Rate 67 68 Respiratory Rate 17 16 Blood Pressure 117/67 123/63 Pulse Oximetry 97 96 Intake & Output 10/25/17 10/26/17 10/26/17 18:59 06:59 18:59 Intake Total 982.5 / 982.5 1474.5 / 1474.5 Balance 982.5 / 982.5 1474.5 / 1474.5 Weight 65.6 kg Intake: IV 262.5 / 262.5 524.5 / 524.5 Vancomycin Inj 1,250 MG In NS 262.5 / 262.5 524.5 / 524.5 Inj 250 ML @ 250 mls/hr IV.SIG Q8H [facility] Rx#:[id number] Oral 720 / 720 950 / 950 Other: # Voids 3 4 # Bowel Movements 0 <Mary Ann Ohara - 10/26/17 10:39> Narrative: SKIN: Warm and dry. Postsurgical scar on the right arm. Right lower extremity covered in dry shy bandage. Erythema of knee and ankle resolved. Foot swelling minimal and much improved. Leg at knee still tense. Less tender to palpation. Right arm swollen mid forearm HEAD: Atraumatic. Normocephalic. EYES: Pupils equal and round. No scleral icterus. No injection or drainage. ENT: No nasal bleeding or discharge. Mucous membranes pink and moist. NECK: Trachea midline. No JVD. CARDIOVASCULAR: Regular rate and rhythm. 2+ dorsalis pedis pulses bilaterally. RESPIRATORY: No accessory muscle use. Clear to auscultation. Breath sounds equal bilaterally. Of note, small plastic container noted in the patient's bra. GASTROINTESTINAL: Abdomen soft, non-tender, nondistended. Hepatic and splenic margins not palpable. MUSCULOSKELETAL: Moving all extremities with grossly normal strength. NEUROLOGICAL: Awake and alert. No obvious cranial nerve deficits. Motor grossly within normal limits. Normal speech. PSYCHIATRIC: Appropriate mood and affect; insight and judgment normal. <Mary Ann Ohara - 10/26/17 10:39> Assessment and Plan - Assessment (1) Cellulitis Code(s): L03.90 - Cellulitis, unspecified Status: Acute (2) Sepsis Code(s): A41.9 - Sepsis, unspecified organism Status: Acute (3) Substance abuse Code(s): F19.10 - Other psychoactive substance abuse, uncomplicated Status: Acute (4) Pathological emotionality Code(s): F60.3 - Borderline personality disorder Status: Acute (5) Nutrition, metabolism, and development symptoms Code(s): R63.8 - Other symptoms and signs concerning food and fluid intake Status: Acute <Gayatri Wolfe - 10/26/17 13:46> (1) Cellulitis Code(s): L03.90 - Cellulitis, unspecified Status: Acute Plan: Right leg pain and 4 cm sore with surrounding erythema, swelling, hot to touch. Most likely cellulitis. Low suspicion for DVT at this time -Admitted to observation. -In ED given 2L NS bolus, vancomycin, flagyl, aztreonam, Toradol. -continued on vanc 1g q12hrs with vancomycin consult -one dose of 40 mg prednisone -marker used to outline extent of erythema which is improving -Pain: PRN Tylenol, percocet 10 q4 scheduled, morphine IV for breakthrough -Ultrasound of the leg was ordered which showed a 12 x 2 x 4 area of fluid collection suggestive of an abscess -Podiatry I&D procedure 10/25 for abscess of right leg; antibiotic treatment based on wound culture results; follow up in [facility] [place] -ID consult for antibiotic recommendations: Continue vanc and consider wound cultures from procedure (2) Sepsis Code(s): A41.9 - Sepsis, unspecified organism Status: Acute Plan: Qualified for sepsis criteria with elevated white count 11,000 and tachycardia 110 on admission. Lactic acid within normal limits. Blood cultures drawn. urinalysis was positive for leuk esterase but had squamous epithelial cells indicative of contaminated specimen and patient denied any urinary symptoms. Sepsis most likely to to cellulitis. Was started on aztreonam, Flagyl, and Vanc in the ED as well as 2 L NS bolus. -Vancomycin 1g q 12 -BCX no growth to date -LA 2.2 -ID consult for antibiotic recommendations: continue vanc and consider wound cultures during procedure (3) Substance abuse Code(s): F19.10 - Other psychoactive substance abuse, uncomplicated Status: Acute Plan: Heroin use two days ago. 1/2 ppd cigarettes. -UDS positive for amphetamines, opiates, cocaine. -monitor vital signs and withdraw symptoms. -Clonidine 0.1 mg every 8 hours -percocet 10 q4 scheduled, morphine IV for breakthrough pain. (4) Pathological emotionality Code(s): F60.3 - Borderline personality disorder Status: Acute Plan: Patient likely has depressive disorder but in the context of substance abuse. Patient is full code at this time. -consider psych consult if indicated, not needed at this time (5) Nutrition, metabolism, and development symptoms Code(s): R63.8 - Other symptoms and signs concerning food and fluid intake Status: Acute Plan: Diet: Regular diet DVT: Lovenox SQ 40mg daily Electrolytes: replete as needed Disposition: anticipate discharge in 1-2 days pending clinical course, on PO antibiotics. rig site engineer consult for social needs <Mary Ann Ohara - 10/26/17 11:53> - Assessment and Plan 31-year-old female with history of IV drug use presented with cellulitis of the right lower leg. Initially met SIRS criteria was given aztreonam, vancomycin, Flagyl in the ED. Has been continued on vancomycin. Erythema and pain have improved, patient had a fever of 100.5 and an increase in white count on day 2 of hospitalization. Ultrasound showed 12 x 2 x 4 cm area of fluid collection suggestive of an abscess. Podiatry consulted and I&D right leg abscess procedure 10/25. Blood cultures with no growth to date. Consulted infectious disease who recommended continuing on vancomycin for now. <Mary Ann Ohara - 10/26/17 10:39> - Attending Attestation The exam, history, and the medical decision-making described in the above note were completed with the assistance of the resident physician. I reviewed and agree with the findings presented. I attest that I had a [id number] encounter with the patient on the same day, and personally performed and documented my assessment and findings in the medical record. She did report having opiate withdrawal. She stated she used heroin and reported getting in the past from pain management super high doses of 30 of oxycodone 3 times a day plus OxyContin may be 20 twice a day. She has only been getting her opiates illegally now for quite some time. She evidently refused her vancomycin last night. Agree with giving her more pain medicine since she just had surgery and her leg must be painful. <Gayatri Wolfe M - 10/26/17 13:46> <Mary Ann Ohara Filed: 10/26/17 11:53> (1) Cellulitis Qualifiers: Laterality: right <Gayatri Wolfe Filed: 10/26/17 13:46> (1) Cellulitis Qualifiers: Laterality: right <Mary Ann Ohara Filed: 10/26/17 11:53> (1) Cellulitis Qualifiers: Laterality: right <Gayatri Wolfe Filed: 10/26/17 13:46> (1) Cellulitis Qualifiers: Laterality: right
[2017-10-26] MEDS: oxyCODONE/Acetaminophen 10/325 Tablet PO SCH ×3 (13:42→21:00)
[2017-10-26] MEDS: Enoxaparin Inj 40 MG/0.4 ML Syringe SQ SCH (15:47)
[2017-10-27] MEDS: oxyCODONE/Acetaminophen 10/325 Tablet PO SCH ×3 (01:30→08:59)
[2017-10-27] MEDS: Vancomycin Inj 1,250 MG in Sodium Chlor 0.9% Inj 250 ML IV.SIG SCH (05:04)
[2017-10-27] MEDS: Morphine Inj 4 MG/ML Vial IV.PUSH PRN ×2 (06:00→10:34)
[2017-10-27] MEDS: Senna/Docusate Sodium 8.6/50 MG Tablet PO SCH (08:59)
--- NOTE | 2017-10-27 09:45 | P.PNFP ---
Subjective Interval history: No acute events overnight. Vision continues to complain of pain at the surgical site but otherwise denies any chest pain, shortness of breath, nausea vomiting, diarrhea. Nursing staff reported patient was having multiple visitors and expressed concern that they were bringing her substances. Patient denies any illicit drug use during this hospitalization. <Murali Castaneda B - 10/27/17 09:44> Results - Labs Result diagrams: 10/27/17 10:00 10/27/17 10:00 <Gayatri Wolfe - 10/27/17 12:24> Abnormal lab results 10/27/17 Range/Units 10:00 [place] % (Auto) 8.5 H (0.0-8.0) % Eos % (Auto) 9.9 H (0.0-4.0) % Eos # (Auto) 0.7 H (0.0-0.4) th/mm3 Short CBC 10/27/17 Range/Units 10:00 WBC 7.1 (4.0-11.0) th/mm3 Hgb 11.6 (11.6-15.3) gm/dL Hct 35.2 (35.0-46.0) % Plt Count 213 (150-450) th/mm3 BMP 10/27/17 10:00 Sodium 140 Potassium 4.1 Chloride 103 Carbon Dioxide 27.9 BUN 11 Creatinine 0.51 Calcium 8.7 <Gayatri Wolfe M - 10/27/17 12:24> Physical Exam Vital signs: Vital Signs 10/26/17 16:00 10/26/17 22:00 10/27/17 00:45 Temperature 96.8 F L 97.9 F 98 F Pulse Rate 88 115 H 100 H Respiratory Rate 16 16 17 Blood Pressure 106/62 105/75 110/70 Pulse Oximetry 100 100 98 10/27/17 06:15 10/27/17 07:00 10/27/17 07:51 Temperature 98 F 98.1 F Pulse Rate 85 77 Respiratory Rate 16 12 12 Blood Pressure 109/66 97/56 L Pulse Oximetry 96 98 10/27/17 09:49 10/27/17 09:52 Temperature Pulse Rate Respiratory Rate 12 12 Blood Pressure Pulse Oximetry Intake & Output 10/26/17 10/27/17 10/27/17 18:59 06:59 18:59 Intake Total 982.5 / 982.5 1512.5 / 1512.5 262.5 / 262.5 Balance 982.5 / 982.5 1512.5 / 1512.5 262.5 / 262.5 Weight 66 kg Intake: IV 262.5 / 262.5 262.5 / 262.5 262.5 / 262.5 Vancomycin Inj 1,250 MG In NS 262.5 / 262.5 262.5 / 262.5 262.5 / 262.5 Inj 250 ML @ 250 mls/hr IV.SIG Q8H [facility] Rx#:[id number] Oral 720 / 720 1250 / 1250 Other: # Voids 3 2 Date of Last Bowel Movement 10/26/17 # Bowel Movements 0 <Gayatri Wolfe M - 10/27/17 12:24> Vital Signs 10/26/17 12:00 10/26/17 16:00 10/26/17 22:00 Temperature 98.6 F 96.8 F L 97.9 F Pulse Rate 89 88 115 H Respiratory Rate 16 16 16 Blood Pressure 106/52 L 106/62 105/75 Pulse Oximetry 97 100 100 10/27/17 00:45 10/27/17 06:15 10/27/17 07:00 Temperature 98 F 98 F Pulse Rate 100 H 85 Respiratory Rate 17 16 12 Blood Pressure 110/70 109/66 Pulse Oximetry 98 96 10/27/17 07:51 Temperature 98.1 F Pulse Rate 77 Respiratory Rate 12 Blood Pressure 97/56 L Pulse Oximetry 98 Intake & Output 10/26/17 10/27/17 10/27/17 18:59 06:59 18:59 Intake Total 982.5 / 982.5 1512.5 / 1512.5 262.5 / 262.5 Balance 982.5 / 982.5 1512.5 / 1512.5 262.5 / 262.5 Weight 66 kg Intake: IV 262.5 / 262.5 262.5 / 262.5 262.5 / 262.5 Vancomycin Inj 1,250 MG In NS 262.5 / 262.5 262.5 / 262.5 262.5 / 262.5 Inj 250 ML @ 250 mls/hr IV.SIG Q8H [facility] Rx#:[id number] Oral 720 / 720 1250 / 1250 Other: # Voids 3 2 Date of Last Bowel Movement 10/26/17 # Bowel Movements 0 <Murali Castaneda - 10/27/17 09:44> Narrative: SKIN: Warm and dry. Postsurgical scar on the right arm. Right lower extremity covered in dry shy bandage and is clean dry and intact. Foot swelling minimal and much improved. Leg at knee still tense. Less tender to palpation. HEAD: Atraumatic. Normocephalic. EYES: Pupils equal and round. No scleral icterus. No injection or drainage. ENT: No nasal bleeding or discharge. Mucous membranes pink and moist. NECK: Trachea midline. No JVD. CARDIOVASCULAR: Regular rate and rhythm. 2+ dorsalis pedis pulses bilaterally. RESPIRATORY: No accessory muscle use. Clear to auscultation. Breath sounds equal bilaterally. GASTROINTESTINAL: Abdomen soft, non-tender, nondistended. Hepatic and splenic margins not palpable. MUSCULOSKELETAL: Moving all extremities with grossly normal strength. NEUROLOGICAL: Awake and alert. No obvious cranial nerve deficits. Motor grossly within normal limits. Normal speech. PSYCHIATRIC: Appropriate mood and affect; insight and judgment normal. <Murali Castaneda Donna - 10/27/17 09:44> Assessment and Plan - Assessment (1) Cellulitis Code(s): L03.90 - Cellulitis, unspecified Status: Acute (2) Sepsis Code(s): A41.9 - Sepsis, unspecified organism Status: Acute (3) Substance abuse Code(s): F19.10 - Other psychoactive substance abuse, uncomplicated Status: Acute (4) Pathological emotionality Code(s): F60.3 - Borderline personality disorder Status: Acute (5) Nutrition, metabolism, and development symptoms Code(s): R63.8 - Other symptoms and signs concerning food and fluid intake Status: Acute <Gayatri Wolfe - 10/27/17 12:24> (1) Cellulitis Code(s): L03.90 - Cellulitis, unspecified Status: Acute Plan: Right leg pain and 4 cm sore with surrounding erythema, swelling, hot to touch. Most likely cellulitis. Low suspicion for DVT at this time -Admitted to observation. -In ED given 2L NS bolus, vancomycin, flagyl, aztreonam, Toradol. -continued on vanc 1g q12hrs with vancomycin consult -one dose of 40 mg prednisone -marker used to outline extent of erythema which is improving -Pain: PRN Tylenol, percocet 10 q4 scheduled, morphine IV for breakthrough -Ultrasound of the leg was ordered which showed a 12 x 2 x 4 area of fluid collection suggestive of an abscess -Podiatry I&D procedure 10/25 for abscess of right leg; antibiotic treatment based on wound culture results; follow up in [facility] [place]. Discussed with case management to arrange this follow-up. -ID consult for antibiotic recommendations: Continue vanc and consider wound cultures from procedure -Initial cultures as well as wound cultures have been negative to date (2) Sepsis Code(s): A41.9 - Sepsis, unspecified organism Status: Acute Plan: Qualified for sepsis criteria with elevated white count 11,000 and tachycardia 110 on admission. Lactic acid within normal limits. Blood cultures drawn. urinalysis was positive for leuk esterase but had squamous epithelial cells indicative of contaminated specimen and patient denied any urinary symptoms. Sepsis most likely to to cellulitis. Was started on aztreonam, Flagyl, and Vanc in the ED as well as 2 L NS bolus. -Vancomycin 1g q 12 -BCX no growth to date -Resolved (3) Substance abuse Code(s): F19.10 - Other psychoactive substance abuse, uncomplicated Status: Acute Plan: Heroin use two days ago. 1/2 ppd cigarettes. -UDS positive for amphetamines, opiates, cocaine. -monitor vital signs and withdraw symptoms. -Clonidine 0.1 mg every 8 hours -percocet 10 q4 scheduled, morphine IV for breakthrough pain. -Nursing staff with concerns for visitors potentially bringing her substances. Patient denies this. Will restrict visitors (4) Pathological emotionality Code(s): F60.3 - Borderline personality disorder Status: Acute Plan: Patient likely has depressive disorder but in the context of substance abuse. Patient is full code at this time. -consider psych consult if indicated, not needed at this time (5) Nutrition, metabolism, and development symptoms Code(s): R63.8 - Other symptoms and signs concerning food and fluid intake Status: Acute Plan: Diet: Regular diet DVT: Lovenox SQ 40mg daily Electrolytes: replete as needed Disposition: anticipate discharge in 1-2 days pending clinical course, on PO antibiotics. radiation safety officer consult for social needs <Murali Castaneda - 10/27/17 09:36> - Assessment and Plan 31-year-old female with history of IV drug use presented with cellulitis of the right lower leg. Initially met SIRS criteria was given aztreonam, vancomycin, Flagyl in the ED. Has been continued on vancomycin. Erythema and pain have improved, patient had a fever of 100.5 and an increase in white count on day 2 of hospitalization. Ultrasound showed 12 x 2 x 4 cm area of fluid collection suggestive of an abscess. Podiatry consulted and I&D right leg abscess procedure 10/25. Blood cultures, wound cultures with no growth to date. Consulted infectious disease who recommended continuing on vancomycin for now. <Murali Castaneda - 10/27/17 09:44> - Attending Attestation The exam, history, and the medical decision-making described in the above note were completed with the assistance of the resident physician. I reviewed and agree with the findings presented. I attest that I had a [id number] encounter with the patient on the same day, and personally performed and documented my assessment and findings in the medical record. unfortunately, she decided to leave AMA <Gayatri Wolfe - 10/27/17 12:24> <Murali Castaneda B - Last Filed: 10/27/17 09:36> (1) Cellulitis Qualifiers: Laterality: right <Gayatri Wolfe - Last Filed: 10/27/17 12:24> (1) Cellulitis Qualifiers: Laterality: right <Murali Castaneda B - Last Filed: 10/27/17 09:36> (1) Cellulitis Qualifiers: Laterality: right <Gayatri Wolfe M - Last Filed: 10/27/17 12:24> (1) Cellulitis Qualifiers: Laterality: right
[2017-10-27 10:26] LABS: Baso # (Auto) 0.1 th/mm3 (0.0-0.2); Baso % (Auto) 0.8 % (0.0-2.0); Eos # (Auto) 0.7 th/mm3 (0.0-0.4); Eos % (Auto) 9.9 % (0.0-4.0); Hematocrit 35.2 % (35.0-46.0); Hemoglobin 11.6 gm/dL (11.6-15.3); Lymph # (Auto) 2.4 th/mm3 (1.0-4.8); Lymph % (Auto) 33.7 % (9.0-44.0); Mean Corpuscular Hemoglobin 28.2 pg (27.0-34.0); Mean Corpuscular Volume 85.3 fL (80.0-100.0); Mean Platelet Volume 7.8 fL (7.0-11.0); Mono # (Auto) 0.6 th/mm3 (0.0-0.9); Mono % (Auto) 8.5 % (0.0-8.0); Neut # (Auto) 3.3 th/mm3 (1.8-7.7); Neut % (Auto) 47.1 % (16.0-70.0); Platelet Count 213 th/mm3 (150-450); Red Blood Count 4.12 mil/mm3 (4.00-5.30); White Blood Count 7.1 th/mm3 (4.0-11.0)
[2017-10-27 10:47] LABS: Anion Gap 9 meq/L (5-15); Blood Urea Nitrogen 11 mg/dL (7-18); Calcium 8.7 mg/dL (8.5-10.1); Carbon Dioxide 27.9 meq/L (21.0-32.0); Chloride 103 meq/L (98-107); Glomerular Filtration Rate Greater Than 89 mL/min (>89); Glucose,Random 83 mg/dL (74-106); Potassium 4.1 meq/L (3.5-5.1); Sodium 140 meq/L (136-145)
--- NOTE | 2017-10-27 12:27 | P.AMA ---
AMA Note - AMA Note AMA Statement: Patient Gayatri Buchanan has decided to leave the hospital against medical advice. This patient has the capacity to refuse care and understands the risks of leaving, including permanent disability and/or , and has had an opportunity to ask questions about his/her condition. The patient has been informed that he/she may return for care at any time, and follow up has been advised. Unfortunately, the Dr/patient relationship has been broken so we will not accept her back on our service if she returns for the same problem - AMA Note Discharge Disposition: Left Against Medical Advice Patient Condition on Discharge: Stable
[2017-10-27] MEDS ORDERED: Pharmacy Ordered Lab Info OTHER ONE (12:45)
--- NOTE | 2017-10-28 10:59 | P.DS ---
Date of admission: 10/23/17 14:21 Primary care physician: No Primary Care Physician Brief History from admission: 31-year-old female with history of IV drug use presents with right leg pain. Patient states 2 weeks ago she noticed a pimple on her calf that was draining yellow bloody fluid. Since then it has become painful, warm, and enlarged. It became a lot worse overnight. Yesterday she started experiencing fever and chills. She went to [facility] where they did a ultrasound of the leg and found a collection of fluid. She received no medications at the hospital and left AMA because they would not allow her to have visitors. She said the pain has continued and it is mostly painful to walk. At rest it is a 5 out of 10 and goes to 10 out of 10 with walking. She describes it as a intermittent sharp pain. Denies any nausea vomiting or urinary symptoms. She has had skin infections in the past and said 2 years ago she had MRSA skin infection. She has a history of drug use and was using heroin until 2 months ago. She said she was clean for 2 months but then the pain was too strong and she used heroin 2 days ago into her arm. She usually injects into her arm and years ago into her legs in the past she has already used cocaine. Denies any alcohol use. Smokes 1 pack of cigarettes per day for the past 10 years. She is unemployed, lives at home with a roommate and 2 dogs. She has not had any dog bites or scratches. When patient was asked about her CODE STATUS at first she stated DNR when asked to explain her reasoning she became tearful and said she was not up to talking at that time. When offered help for her other medical needs besides her leg patient stated for now she would like to be full code but was not up for discussing her tearfulness. DS: Diagnosis - Discharge Diagnosis (1) Cellulitis Status: Acute (2) Sepsis Status: Acute (3) Substance abuse Status: Acute (4) Pathological emotionality Status: Acute (5) Nutrition, metabolism, and development symptoms Status: Acute DS: Summary Hospital Course: 31-year-old female with history of IV drug use presented with cellulitis of the right lower leg. Initially met SIRS criteria was given aztreonam, vancomycin, Flagyl in the ED. Was continued on vancomycin. Ultrasound showed 12 x 2 x 4 cm area of fluid collection suggestive of an abscess. Podiatry consulted and I&D right leg abscess procedure 10/25. Blood cultures and wound cultures with no growth the first 24 hours. Consulted infectious disease who recommended continuing on vancomycin until cultures resulted. Nursing staff reported suspicious activity with visitors in the room on 10/26. Visitors were restricted on 10/27 and upon learning this patient left AMA. - Time Spent with Patient Total time spent providing and/or coordinating discharge services: Less than 30 minutes - Quality: VTE Deep Vein Thrombosis/Pulmonary Embolism Present on Admission: No Exam Vital signs: Intake & Output 10/27/17 10/28/17 10/28/17 18:59 06:59 18:59 Intake Total 262.5 / 262.5 Balance 262.5 / 262.5 Intake: IV 262.5 / 262.5 Vancomycin Inj 1,250 MG In NS 262.5 / 262.5 Inj 250 ML @ 250 mls/hr IV.SIG Q8H CHELSEY Rx#:[id number] Other: Date of Last Bowel Movement 10/26/17 Narrative: Narrative: SKIN: Warm and dry. Postsurgical scar on the right arm. Right lower extremity covered in dry shy bandage and is clean dry and intact. Foot swelling minimal and much improved. Leg at knee still tense. Less tender to palpation. HEAD: Atraumatic. Normocephalic. EYES: Pupils equal and round. No scleral icterus. No injection or drainage. ENT: No nasal bleeding or discharge. Mucous membranes pink and moist. NECK: Trachea midline. No JVD. CARDIOVASCULAR: Regular rate and rhythm. 2+ dorsalis pedis pulses bilaterally. RESPIRATORY: No accessory muscle use. Clear to auscultation. Breath sounds equal bilaterally. GASTROINTESTINAL: Abdomen soft, non-tender, nondistended. Hepatic and splenic margins not palpable. MUSCULOSKELETAL: Moving all extremities with grossly normal strength. NEUROLOGICAL: Awake and alert. No obvious cranial nerve deficits. Motor grossly within normal limits. Normal speech. PSYCHIATRIC: Appropriate mood and affect; insight and judgment normal. Results Procedures completed during hospitalization: I&D of right leg abscess by podiatry - Impressions ITS Impressions Soft Tissue Ultrasound 10/23/17 00:00 CONCLUSION: Complex subcutaneous collection measuring approximately 12.7 x 1.9 x 4.2 cm. The superficial portion along the inferior aspect extends within millimeters of the skin surface. The appearance and clinical history are suspicious for abscess. Discharge Plan - Discharge Disposition Patient Disposition: Left Against Medical Advice - Discharge Condition Condition: Stable - Physicians Team Primary Care Provider: Primary Care Lucy Jolley Attending Provider: Gayatri Wolfe Other Providers: Anita Bautista DPM ; Yuan Conde MD
== END 2017-10-27 10:48 | disposition left against medical advice (07) ==
LOC: NEDA 09:12 → NEPD 09:12 → NEPHCDU 15:07 → N05 10-23 18:17
PROVIDERS: ADMIT Family Medicine; ATTEND Family Medicine

== ENCOUNTER 2018-01-28 13:29 | Inpatient (IN) ==
[2018-01-28] MEDS ORDERED: Vancomycin Inj 1,000 MG in Sodium Chlor 0.9% Inj 250 ML IV.SIG STA (14:07)
[2018-01-28] MEDS ORDERED: Aztreonam Inj 2 GM in Sodium Chloride 0.9% Inj 100 ML IV.SIG STA (14:07)
[2018-01-28] MEDS: Sod Chloride 0.9% Inj 1,000 ML IV.SIG SCH ×2 (14:37→15:46)
[2018-01-28 14:42] LABS: Baso # (Auto) 0.1 th/mm3 (0.0-0.2); Baso % (Auto) 0.5 % (0.0-2.0); Eos # (Auto) 0.1 th/mm3 (0.0-0.4); Hemoglobin 13.1 gm/dL (11.6-15.3); Lymph # (Auto) 1.9 th/mm3 (1.0-4.8); Lymph % (Auto) 18.7 % (9.0-44.0); Mean Corpuscular HGB Conc 35.5 % (32.0-36.0); Mean Corpuscular Hemoglobin 29.5 pg (27.0-34.0); Mean Corpuscular Volume 83.3 fL (80.0-100.0); Mean Platelet Volume 8.4 fL (7.0-11.0); Mono # (Auto) 0.7 th/mm3 (0.0-0.9); Mono % (Auto) 6.9 % (0.0-8.0); Neut # (Auto) 7.5 th/mm3 (1.8-7.7); Neut % (Auto) 72.9 % (16.0-70.0); Platelet Count 167 th/mm3 (150-450); Red Blood Count 4.44 mil/mm3 (4.00-5.30); Red Cell Distribution Width 13.5 % (11.6-17.2); White Blood Count 10.3 th/mm3 (4.0-11.0)
--- NOTE | 2018-01-28 14:42 | ED ---
HPI General Chief complaint: Skin/Abscess/Foreign Body Stated complaint: Abscess on Right leg Time Seen by Provider: 01/28/18 14:00 Source: patient Mode of arrival: ambulatory Limitations: no limitations History of Present Illness HPI narrative: Patient is a 32-year-old IV drug user here today for 3 large abscesses that have been present for approximately 1 week. She has one on the left lateral aspect of her forearm and 2 on the right medial aspect of her right lower extremity. She states they are very painful that nothing has made the pain better and injecting drugs is made it worse. Her symptoms are moderate to severe. Patient use this morning prior to coming into hospital she is obviously under the influence of drugs at this time. Medical history positive for IV drug abuse, surgery to her right arm, and a LEEP procedure. MD complaint: Reports abscess/boil Onset (ago): day(s) (2) Tetanus Immunization: Unsure Location: Reports LUE and RLE Severity: moderate Severity scale (1-10): 6 Quality: Reports stabbing and aching Relieving factors: none Exacerbating factors: palpation Associated symptoms: Reports fever, chills and malaise Related Data Home Medications Medication Instructions Recorded Confirmed No Known Home Medications 10/21/17 01/28/18 Allergies Allergy/AdvReac Type Severity Reaction Status Date / Time amoxicillin Allergy Unknown Rash Verified 01/28/18 13:40 Penicillins Allergy Unknown Rash Verified 01/28/18 13:40 Review of Systems ROS: all other systems reviewed are negative [facility] Family History Family History Other Family history unobtainable due to patient's condition Social History Social History Substance History: Active Abuse Second Hand Smoke Exposure: Yes Smoking Status: Current every day smoker Tobacco Type: Cigarettes How Often Do You Have a Drink Containing Alcohol: 2 to 3 times a week Recent Travel in [place] within the Last 8 Weeks: No Recent Out of Country Travel within the Last 8 Weeks: No Substance Abuse Detail Heroin: Substance Use Status: Active Route Used Substance Abuse: Intravenously Immunization History Tetanus Immunization: Unsure Exam Narrative Exam Narrative: GENERAL: Patient is awake she is answering questions appropriately but she is obviously under the influence of IV heroin. SKIN: Warm and dry. Right lower extremity is edematous with 2 large open oozing abscesses to the medial aspect of the lower extremity. They are painful to palpation they both measure approximately 5-6 cm circular. The more distal abscess is scabbing on top and oozing more than the more proximal abscess. She also has an abscess to lateral aspect of L forearm that is approx 2 cm circular , erythematous, and ;is fluctuant. HEAD: Normocephalic. EYES: No scleral icterus. No injection or drainage. NECK: Supple, trachea midline. No JVD or lymphadenopathy. CARDIOVASCULAR: Regular rate and rhythm without murmurs, gallops, or rubs. RESPIRATORY: Breath sounds equal bilaterally. No accessory muscle use. GASTROINTESTINAL: Abdomen soft, non-tender, nondistended. MUSCULOSKELETAL: No cyanosis, or edema. BACK: Nontender without obvious deformity. No CVA tenderness. Procedures Abscess I/D Site: upper extremity (I & D done on LEFT UPPER EXTREMITY, no packing. ALSO RLE WITH PACKING SEE BELOW) and lower extremity (RIGHT) Side (if applicable): right Sedation/analgesia: none Anesthetic used: lidocaine 1% Technique: incised with #11 blade Amount of fluid expressed (mL): 10 Irrigation: Yes Packing used?: iodoform Complications: pain and bleeding Course Initial Documented Vital Signs Temperature 99.7 F H 01/28/18 13:37 Pulse Rate 117 H 01/28/18 13:37 Respiratory Rate 16 01/28/18 13:37 Blood Pressure 110/59 L 01/28/18 13:37 Pulse Oximetry 97 01/28/18 13:37 Last Documented Vital Signs Temperature 98.1 F 01/29/18 04:00 Pulse Rate 84 01/29/18 08:30 Respiratory Rate 17 01/29/18 04:00 Blood Pressure 106/59 L 01/29/18 04:00 Pulse Oximetry 96 01/29/18 04:00 Medical Decision Making [facility] Narrative Medical decision making narrative: This is an IVDA who presents with several abscesses--2 on her RLE and 1 on her L FA. Septic work-up has been initiated. She has been treated empirically with aztreonam, metronidazole and vanc. She needs to have the abscesses I&Ded and cultured. She will likely need admit. I reviewed patient's labs which look very good considering the extent of her abscesses and cellulitis to her right lower extremity and left upper extremity. There is mild increase in patient's potassium and mild decrease in her sodium , otherwise all within normal range at this point. We administered IV vancomycin IV Flagyl and IV aztreonam which patient tolerated very well. I did clean 3 abscesses I did drain the largest abscess on her right lower extremity which patient did not tolerate very well no matter how much lidocaine was used. I used a total of 10 mL between her leg and her left upper extremity. Packing was done to her right leg of the left upper extremity did not need packing. Moderate amount of serosanguineous fluid was removed each with foul odors. Wound cultures were obtained and sent to lab on from her arm and leg. Pt resting comfortably after I & D. At 1700 I called [facility] for admission I spoke with Dr. Dye who agreed to admit her for 23-hour observation and IV antibiotics. Patient stable for admission. Medical Screen Exam Complete: Yes Emergency Medical Condition: Yes Differential Diagnosis Differential Diagnosis: Abscess, bacteremia, sepsis Lab Data Lab results reviewed: Yes I reviewed the patient's lab results. Result diagrams: 01/29/18 09:03 01/29/18 09:03 Lab Results 01/28/18 01/28/18 01/28/18 Range/Units 14:13 14:13 14:13 WBC 10.3 (4.0-11.0) th/mm3 RBC 4.44 (4.00-5.30) mil/mm3 Hgb 13.1 (11.6-15.3) gm/dL Hct 37.0 (35.0-46.0) % MCV 83.3 (80.0-100.0) fL MCH 29.5 (27.0-34.0) pg MCHC 35.5 (32.0-36.0) % RDW 13.5 (11.6-17.2) % Plt Count 167 (150-450) th/mm3 MPV 8.4 (7.0-11.0) fL Neut % (Auto) 72.9 H (16.0-70.0) % Lymph % (Auto) 18.7 (9.0-44.0) % [place] % (Auto) 6.9 (0.0-8.0) % Eos % (Auto) 1.0 (0.0-4.0) % Baso % (Auto) 0.5 (0.0-2.0) % Neut # (Auto) 7.5 (1.8-7.7) th/mm3 Lymph # (Auto) 1.9 (1.0-4.8) th/mm3 [place] # (Auto) 0.7 (0.0-0.9) th/mm3 Eos # (Auto) 0.1 (0.0-0.4) th/mm3 Baso # (Auto) 0.1 (0.0-0.2) th/mm3 WBC Differential . Differential Comment Auto diff final Sodium 133 L (136-145) meq/L Potassium 5.4 H (3.5-5.1) meq/L Chloride 100 (98-107) meq/L Carbon Dioxide 27.9 (21.0-32.0) meq/L Anion Gap 5 (5-15) meq/L BUN 13 (7-18) mg/dL Creatinine 0.69 (0.50-1.00) mg/dL Estimated GFR Greater than 89 (>89) mL/min Random Glucose 79 (74-106) mg/dL Lactic Acid 0.9 (0.4-2.0) mmol/L Calcium 9.2 (8.5-10.1) mg/dL Magnesium 2.3 (1.5-2.5) mg/dL Total Bilirubin 0.5 (0.2-1.0) mg/dL AST 53 H (15-37) U/L ALT 22 (10-53) U/L Alkaline Phosphatase 106 (45-117) U/L Total Protein 8.9 H (6.4-8.2) g/dL Albumin 3.1 L (3.4-5.0) g/dL 01/29/18 01/29/18 Range/Units 09:03 09:03 WBC 8.2 (4.0-11.0) th/mm3 RBC 3.91 L (4.00-5.30) mil/mm3 Hgb 11.3 L (11.6-15.3) gm/dL Hct 33.3 L (35.0-46.0) % MCV 85.2 (80.0-100.0) fL MCH 28.8 (27.0-34.0) pg MCHC 33.8 (32.0-36.0) % RDW 13.0 (11.6-17.2) % Plt Count 137 L (150-450) th/mm3 MPV 8.0 (7.0-11.0) fL Neut % (Auto) 65.8 (16.0-70.0) % Lymph % (Auto) 21.8 (9.0-44.0) % [place] % (Auto) 10.0 H (0.0-8.0) % Eos % (Auto) 2.0 (0.0-4.0) % Baso % (Auto) 0.4 (0.0-2.0) % Neut # (Auto) 5.4 (1.8-7.7) th/mm3 Lymph # (Auto) 1.8 (1.0-4.8) th/mm3 [place] # (Auto) 0.8 (0.0-0.9) th/mm3 Eos # (Auto) 0.2 (0.0-0.4) th/mm3 Baso # (Auto) 0.0 (0.0-0.2) th/mm3 WBC Differential . Differential Comment Auto diff final Sodium 139 (136-145) meq/L Potassium 3.8 D (3.5-5.1) meq/L Chloride 107 (98-107) meq/L Carbon Dioxide 27.9 (21.0-32.0) meq/L Anion Gap 4 L (5-15) meq/L BUN 9 (7-18) mg/dL Creatinine 0.65 (0.50-1.00) mg/dL Estimated GFR Greater than 89 (>89) mL/min Random Glucose 98 (74-106) mg/dL Lactic Acid (0.4-2.0) mmol/L Calcium 8.9 (8.5-10.1) mg/dL Magnesium (1.5-2.5) mg/dL Total Bilirubin 0.3 (0.2-1.0) mg/dL AST 14 L (15-37) U/L ALT 12 (10-53) U/L Alkaline Phosphatase 87 (45-117) U/L Total Protein 7.0 D (6.4-8.2) g/dL Albumin 2.4 L D (3.4-5.0) g/dL Discharge Plan Discharge Disposition Patient Disposition: 31 Still Patient Discharge Condition Condition: Stable Discharge Order Discharge Orders: AMA Discharge (Routine); Ordered 01/29/18 Ordered By: June Hammonds Discharge Details Anticipated Discharge Date: 01/29/18 Discharge Comment: Discussed with patient at length to stay due to high risk to limb and life. Pt decided to leave AMA. Physicians Team ED Provider: Juliana Sol ED Midlevel Provider: Ivonne Carreno Primary Care Provider: Primary Care Lucy Jolley Attending Provider: June Hammonds Status ED Status: Left Department Discharge Information Discharge Date/Time: 01/28/18 18:37
[2018-01-28] MEDS ORDERED: Lidocaine 1% Inj 30 ML Vial INFILTRATN ONE (14:45)
[2018-01-28] MEDS ORDERED: Lidocaine 1% Inj 50 ML Vial INFILTRATN ONE (15:04)
[2018-01-28 15:14] LABS: Alanine Aminotransferase 22 U/L (10-53); Albumin 3.1 g/dL (3.4-5.0); Alkaline Phosphatase 106 U/L (45-117); Anion Gap 5 meq/L (5-15); Aspartate Aminotransferase 53 U/L (15-37); Blood Urea Nitrogen 13 mg/dL (7-18); Calcium 9.2 mg/dL (8.5-10.1); Carbon Dioxide 27.9 meq/L (21.0-32.0); Chloride 100 meq/L (98-107); Glomerular Filtration Rate Greater Than 89 mL/min (>89); Glucose,Random 79 mg/dL (74-106); Magnesium 2.3 mg/dL (1.5-2.5); Potassium 5.4 meq/L (3.5-5.1); Sodium 133 meq/L (136-145); Total Protein 8.9 g/dL (6.4-8.2)
[2018-01-28] MEDS ORDERED: Acetaminophen 325 MG Tablet PO PRN ×2 (17:13)
[2018-01-28] MEDS ORDERED: Ketorolac Inj 30 MG/ML (IVP) Vial IV.PUSH PRN (17:13)
[2018-01-28] MEDS ORDERED: Naloxone Inj 0.4 MG/ML Vial IV.PUSH PRN (17:13)
[2018-01-28] MEDS ORDERED: Bisacodyl 10 MG Supp RECTAL PRN (17:13)
[2018-01-28] MEDS ORDERED: Vancomycin Consult Pharmacy OTHER PRN (17:17)
[2018-01-28] MEDS: metroNIDAZOLE 500 MG Tablet PO SCH (21:46)
[2018-01-28] MEDS: Senna/Docusate Sodium 8.6/50 MG Tablet PO SCH (21:46)
--- NOTE | 2018-01-28 22:19 | P.HPIM ---
History of Present Illness Service: [facility] hospitalists . Primary Care Physician: No Primary Care Physician Chief Complaint: painful lesions History of Present Illness: Ms. Buchanan is a 32-year-old IV drug abuser who presented to the emergency room on 01/28/2018 for evaluation of 3 large and painful abscesses: 1 on her left forearm and 2 on her right lower extremity. She had I&D of the largest of the leg abscesses and the left forearm abscess and was admitted to the hospitalist service for further treatment. Dr. Masters called me at 8 pm and asked me to see the patient because she attempted to see the patient at around 7:30 pm but the patient remained in the bathroom for 30 minutes and refused to come out for interview/examination. According to Dr. Masters, the boyfriend was in the patient's room and stated that the patient was having a bowel movement. I presented to the patient's room to see her later this evening (at around 11: 15 pm) after the patient was informed of the hospital's policy for visitors to leave at 8 PM and the boyfriend was asked to leave the hospital. She is lying in bed and initially refuses to speak to me at all. She is crying alternating with pouting. I introduced myself and explained my role and purpose. She finally started talking to me then and told me that she does not like being treated like a "fucking criminal". She states that she does not like to stay at the hospital alone because she does not know what happens at certain times and cannot answer family members questions about what people have said or what has been done. I offered to have staff write up a communication log for her to document treatments and instructions as they happen overnight so that everything would be more clear to her and to her family. She said she is going to go to "a better hospital" in the morning. She then screamed for me to get out of her room and told me she would not be talking to me any more and did not want me to do anything to her. History is therefore taken from the electronic medical record and hospital staff. Review of Systems other (patient would not answer medical questions) PMFSH - History History Provided By: Patient - Medical History Medical History: Medical History (Last Reviewed 01/29/18 @ 00:26 by BENJAMIN Moore) Encounter for removal of ureteral stent IV drug user - Surgical History Surgical History: Surgical History (Last Reviewed 01/29/18 @ 00:26 by BENJAMIN Moore) H/O LEEP History of surgery on arm - Family History Family History: Family History (Last Updated 01/29/18 @ 00:26 by BENJAMIN Moore) Other Family history unobtainable due to patient's condition - Social History I have reviewed the patient's Social History: Yes - Tobacco History Second Hand Smoke Exposure: Yes Tobacco Use In Past 30 Days: Yes Smoking Status: Current every day smoker Tobacco Type: Cigarettes - Alcohol History How Often Do You Have a Drink Containing Alcohol: 2 to 3 times a week - Substance Use History Substance History: Active Abuse - Substance Use Type Heroin Status: Active Route Used: Intravenously - Travel History Recent Travel in the [place] Within the Last 8 Weeks: No Recent Travel Out of the Country Within the Last 8 Weeks: No - Immunization History Tetanus Immunization: Unsure Medications and Allergies Active Medications: Active Medications Acetaminophen (Tylenol) 650 mg PO Q6HR PRN PRN Reason: PAIN SCALE 1 TO 2 Acetaminophen (Tylenol) 650 mg PO Q4H PRN PRN Reason: Temp > 100.4 Hydrocodone Bitart/Acetaminophen (May 5/325) 1 tab PO Q4H PRN PRN Reason: PAIN SCALE 3 TO 5 Hydrocodone Bitart/Acetaminophen (May 7.5/325) 1 tab PO Q4H PRN PRN Reason: PAIN SCALE 6 TO 10 Last Admin: 01/28/18 21:54 Dose: 1 tab Al Hydroxide/Mg Hydroxide (Milk Of Magnesia Liq) 30 ml PO Q12H PRN PRN Reason: Mild Constipation Bisacodyl (Dulcolax Supp) 10 mg RECTAL DAILY PRN PRN Reason: SEVERE CONSITIPATION Aztreonam 1,000 mg/ Sodium (Chloride) 100 mls @ 200 mls/hr IV.SIG Q8H C[facility] Last Admin: 01/28/18 21:47 Dose: 200 mls/hr Vancomycin HCl 1,000 mg/ (Sodium Chloride) 250 mls @ 250 mls/hr IV.SIG Q12H [facility] Ketorolac Tromethamine (Toradol Inj) 30 mg IV.PUSH Q6H PRN PRN Reason: BREAKTHROUGH PAIN Stop: 02/02/18 17:12 Lactulose (Lactulose Liq) 30 ml PO DAILY PRN PRN Reason: SEVERE CONSITIPATION Metronidazole (Flagyl) 500 mg PO Q8HR [facility] Last Admin: 01/28/18 21:46 Dose: 500 mg Naloxone HCl (Narcan Inj) 0.4 mg IV.PUSH UNSCH PRN PRN Reason: SEE LABEL COMMENTS Ondansetron HCl (Zofran Inj) 4 mg IV.PUSH Q6H PRN PRN Reason: NAUSEA OR VOMITING Pharmacy Profile Note (Vancomycin Consult Pharmacy) 1 each OTHER UNSCH PRN PRN Reason: Pharmacy to dose Senna/Docusate Sodium (Sofi-Colace) 1 tab PO BID [facility] Last Admin: 01/28/18 21:46 Dose: 1 tab Sennosides (Senokot) 17.2 mg PO Q12H PRN PRN Reason: Moderate Constipation Sodium Chloride (Ns Flush) 2 ml IV.FLUSH BID [facility] Last Admin: 01/28/18 21:47 Dose: 2 ml Sodium Chloride (Ns Flush) 2 ml IV.FLUSH PRN PRN PRN Reason: FLUSH AFTER USING IV ACCESS Allergies Allergy/AdvReac Type Severity Reaction Status Date / Time amoxicillin Allergy Unknown Rash Verified 01/28/18 13:40 Penicillins Allergy Unknown Rash Verified 01/28/18 13:40 Home Medications Medication Instructions Recorded Confirmed Type No Known Home Medications 10/21/17 01/28/18 History Exam Vital signs: Vital Signs 01/28/18 13:37 01/28/18 17:14 01/28/18 20:00 Temperature 99.7 F H 98.5 F 100.3 F H Pulse Rate 117 H 103 H 106 H Respiratory Rate 16 18 19 Blood Pressure 110/59 L 133/81 109/62 Pulse Oximetry 97 99 98 Intake & Output 01/28/18 01/28/18 01/29/18 06:59 18:59 06:59 Intake Total 2450 / 2450 Balance 2450 / 2450 Weight 63.503 kg Intake: IV 2450 / 2450 Azactam Inj 2 GM In NS Inj 100 100 / 100 ML @ 200 mls/hr IV.SIG STAT STA Rx#:[id number] NS Inj 1,000 ML @ 2000 mls/hr 1999 / 1999 IV.SIG Q30M [facility] Rx#:[id number] Vancomycin Inj 1,000 MG In NS 250 / 250 Inj 250 ML @ 250 mls/hr IV.SIG STAT STA Rx#:[id number] Flagyl 500 MG Inj 100 ML @ 100 100 / 100 mls/hr IV.SIG STAT STA Rx#: [id number] Narrative: GENERAL: This is a thin extremely irritable and tearful female patient. INTEGUMENTARY: bandage on left forearm visualized and appears clean and dry; no surrounding skin erythema but exam is greatly limited but patient's lack of cooperation.. PSYCHIATRIC: Clearly upset; refuses to cooperate with history or examination; screamed at me and told me to get out of her room. . Results - Labs CBC & Chem 7: 01/28/18 14:13 01/28/18 14:13 Labs: Short CBC 01/28/18 Range/Units 14:13 WBC 10.3 (4.0-11.0) th/mm3 Hgb 13.1 (11.6-15.3) gm/dL Hct 37.0 (35.0-46.0) % Plt Count 167 (150-450) th/mm3 BMP 01/28/18 14:13 Sodium 133 L Potassium 5.4 H Chloride 100 Carbon Dioxide 27.9 BUN 13 Creatinine 0.69 Calcium 9.2 Liver Function 01/28/18 Range/Units 14:13 Total Bilirubin 0.5 (0.2-1.0) mg/dL AST 53 H (15-37) U/L ALT 22 (10-53) U/L Alkaline Phosphatase 106 (45-117) U/L Albumin 3.1 L (3.4-5.0) g/dL Caprini VTE Risk Assessment Caprini VTE Risk Assessment: No/Low Risk (score <= 1) Caprini Risk Assessment Model: Point Value = 1 Point Value = 2 Point Value = 3 Point Value = 5 Age 41-60 Minor surgery BMI > 25 kg/m2 Swollen legs Varicose veins or History of unexplained or recurrent spontaneous Oral contraceptives or hormone replacement Sepsis (< 1 month) Serious lung disease, including pneumonia (< 1 month) Abnormal pulmonary function Acute myocardial infarction Congestive heart failure (< 1 month) History of inflammatory bowel disease Medical patient at bed rest Age 61-74 Arthroscopic surgery Major open surgery (> 45 min) Laparoscopic surgery (> 45 min) Malignancy Confined to bed (> 72 hours) Immobilizing plaster cast Central venous access Age >= 75 History of VTE Family history of VTE Factor V Leiden Prothrombin [id number] Lupus anticoagulant Anticardiolipin antibodies Elevated serum homocysteine Heparin-induced thrombocytopenia Other congenital or acquired thrombophilia Stroke (< 1 month) Elective arthroplasty Hip, pelvis, or leg fracture Acute spinal cord injury (< 1 month) Prophylaxis Regimen: Total Risk Factor Score Risk Level Prophylaxis Regimen 0-1 Low Early ambulation 2 Moderate Order ONE of the following: *Sequential Compression Device (SCD) *Heparin 5000 units SQ BID 3-4 Higher Order ONE of the following medications: *Heparin 5000 units SQ TID *Enoxaparin/Lovenox 40 mg SQ daily (WT < 150 kg, CrCl > 30 mL/min) *Enoxaparin/Lovenox 30 mg SQ daily (WT < 150 kg, CrCl > 10-29 mL/min) *Enoxaparin/Lovenox 30 mg SQ BID (WT < 150 kg, CrCl > 30 mL/min) AND/OR *Sequential Compression Device (SCD) 5 or more Highest Order ONE of the following medications: *Heparin 5000 units SQ TID (Preferred with Epidurals) *Enoxaparin/Lovenox 40 mg SQ daily (WT < 150 kg, CrCl > 30 mL/min) *Enoxaparin/Lovenox 30 mg SQ daily (WT < 150 kg, CrCl > 10-29 mL/min) *Enoxaparin/Lovenox 30 mg SQ BID (WT < 150 kg, CrCl > 30 mL/min) AND *Sequential Compression Device (SCD) Assessment and Plan - Plan Ms. Buchanan is a 32-year-old IV drug abuser who presented to the emergency room on 01/28/2018 for evaluation of 3 large and painful abscesses: 1 on her left forearm and 2 on her right lower extremity. She had I&D of the largest of the leg abscesses and the left forearm abscess and was admitted to the hospitalist service for further treatment. Left forearm and right lower extremity abscesses -Lactic acid 0.9; no leukocytosis -Status post I&D -Monitor blood cultures and adjust treatments as indicated -Continue IV vancomycin, aztreonam and p.o. metronidazole as previously ordered -Tylenol as needed for fever -Continue May and Toradol as needed as previously ordered for pain Hyperkalemia -Potassium 5.4 likely from the moderate hemolysis noted -Recheck labs and follow results Mild transaminitis -ALT 53 likely secondary to substance abuse -Recheck in a.m. and follow results Patient is not cooperative at all; I suspect she will likely leave A. DVT prophylaxis -Early ambulation Discussed Condition With: Dr. Bello and RN .
[2018-01-29 04:28] VITALS: BP 106/59; RESP 17; TEMP 98.1; O2SAT 96
[2018-01-29] MEDS: metroNIDAZOLE 500 MG Tablet PO SCH (06:03)
[2018-01-29] MEDS: Senna/Docusate Sodium 8.6/50 MG Tablet PO SCH (08:52)
[2018-01-29 09:18] LABS: Baso % (Auto) 0.4 % (0.0-2.0); Eos # (Auto) 0.2 th/mm3 (0.0-0.4); Hematocrit 33.3 % (35.0-46.0); Hemoglobin 11.3 gm/dL (11.6-15.3); Lymph # (Auto) 1.8 th/mm3 (1.0-4.8); Lymph % (Auto) 21.8 % (9.0-44.0); Mean Corpuscular HGB Conc 33.8 % (32.0-36.0); Mean Corpuscular Hemoglobin 28.8 pg (27.0-34.0); Mean Corpuscular Volume 85.2 fL (80.0-100.0); Mono # (Auto) 0.8 th/mm3 (0.0-0.9); Neut # (Auto) 5.4 th/mm3 (1.8-7.7); Neut % (Auto) 65.8 % (16.0-70.0); Platelet Count 137 th/mm3 (150-450); Red Blood Count 3.91 mil/mm3 (4.00-5.30); White Blood Count 8.2 th/mm3 (4.0-11.0)
[2018-01-29 09:50] LABS: Albumin 2.4 g/dL (3.4-5.0); Anion Gap 4 meq/L (5-15); Aspartate Aminotransferase 14 U/L (15-37); Blood Urea Nitrogen 9 mg/dL (7-18); Calcium 8.9 mg/dL (8.5-10.1); Carbon Dioxide 27.9 meq/L (21.0-32.0); Chloride 107 meq/L (98-107); Glomerular Filtration Rate Greater Than 89 mL/min (>89); Glucose,Random 98 mg/dL (74-106); Potassium 3.8 meq/L (3.5-5.1); Sodium 139 meq/L (136-145)
[2018-01-29 09:55] LABS: Alanine Aminotransferase 12 U/L (10-53); Alkaline Phosphatase 87 U/L (45-117)
[2018-01-29 10:31] VITALS: PULSE 84
[2018-01-29] MEDS ORDERED: Vancomycin Inj 1,000 MG in Sodium Chlor 0.9% Inj 250 ML IV.SIG SCH ×2 (11:00→17:18)
--- NOTE | 2018-01-29 11:26 | P.DS ---
Date of admission: 01/28/18 17:13 Primary care physician: No Primary Care Physician Attending physician on discharge: June Hammonds Anticipated date of discharge: 01/29/18 Brief History from admission: Ms. Buchanan is a 32-year-old IV drug abuser who presented to the emergency room on 01/28/2018 for evaluation of 3 large and painful abscesses: 1 on her left forearm and 2 on her right lower extremity. She had I&D of the largest of the leg abscesses and the left forearm abscess and was admitted to the hospitalist service for further treatment. Dr. Masters called me at 8 pm and asked me to see the patient because she attempted to see the patient at around 7:30 pm but the patient remained in the bathroom for 30 minutes and refused to come out for interview/examination. According to Dr. Masters, the boyfriend was in the patient's room and stated that the patient was having a bowel movement. I presented to the patient's room to see her later this evening (at around 11: 15 pm) after the patient was informed of the hospital's policy for visitors to leave at 8 PM and the boyfriend was asked to leave the hospital. She is lying in bed and initially refuses to speak to me at all. She is crying alternating with pouting. I introduced myself and explained my role and purpose. She finally started talking to me then and told me that she does not like being treated like a "fucking criminal". She states that she does not like to stay at the hospital alone because she does not know what happens at certain times and cannot answer family members questions about what people have said or what has been done. I offered to have staff write up a communication log for her to document treatments and instructions as they happen overnight so that everything would be more clear to her and to her family. She said she is going to go to "a better hospital" in the morning. She then screamed for me to get out of her room and told me she would not be talking to me any more and did not want me to do anything to her. History is therefore taken from the electronic medical record and hospital staff. Patient update on day of discharge: Patient complains of significant pain and also complains that no one has addressed her leg wounds. By the time I entered the room, she is all dressed up to leave AMA. DS: Summary Hospital Course: Ms. Buchanan is a 32-year-old female with a history of IV heroin use who was admitted to the hospital due to right lower extremity abscess as well as left upper extremity abscess. Patient was a started on vancomycin. This morning on 01/29/2018, patient is very upset regarding her care at [facility]. She decided to leave the hospital AGAINST MEDICAL ADVICE. By the time I entered her room, she was already dressed up ready to leave. At my request, she allowed me to examine right leg wound. She has two open wounds and significant indurated erythematous lesion on her right lower extremity. Patient denies any fever or chills. I discussed at length regarding high abscess and how it is important for us to address this during this admission. I requested patient to stay and consult general surgery for surgical intervention. I also advised patient that if she does not stay or seek medical attention, she could potentially lose her limb and her life. She verbalized understanding. She was appreciative of my concerns. However she still wants to leave AGAINST MEDICAL ADVICE. I requested RN to clean and wrap her lower extremity wounds. I repeatedly asked patient to seek medical attention today. - Time Spent with Patient Total time spent providing and/or coordinating discharge services: Less than 30 minutes - Quality: VTE Deep Vein Thrombosis/Pulmonary Embolism Present on Admission: No Exam Vital signs: Vital Signs 01/28/18 13:37 01/28/18 17:14 01/28/18 20:00 Temperature 99.7 F H 98.5 F 100.3 F H Pulse Rate 117 H 103 H 106 H Respiratory Rate 16 18 19 Blood Pressure 110/59 L 133/81 109/62 Pulse Oximetry 97 99 98 01/29/18 00:00 01/29/18 04:00 01/29/18 08:30 Temperature 98.3 F 98.1 F Pulse Rate 107 H 95 H 84 Respiratory Rate 18 17 Blood Pressure 103/53 L 106/59 L Pulse Oximetry 95 96 Intake & Output 01/28/18 01/29/18 01/29/18 18:59 06:59 18:59 Intake Total 2450 / 2450 500 / 500 100 / 100 Output Total 800 / 800 Balance 2450 / 2450 -300 / -300 100 / 100 Weight 63.503 kg 69 kg Intake: IV 2450 / 2450 100 / 100 100 / 100 Azactam Inj 1,000 MG In NS Inj 100 / 100 100 / 100 100 ML @ 200 mls/hr IV.SIG Q8H [facility] Rx#:[id number] Azactam Inj 2 GM In NS Inj 100 100 / 100 ML @ 200 mls/hr IV.SIG STAT STA Rx#:[id number] NS Inj 1,000 ML @ 2000 mls/hr 1999 / 1999 IV.SIG Q30M [facility] Rx#:[id number] Vancomycin Inj 1,000 MG In NS 250 / 250 Inj 250 ML @ 250 mls/hr IV.SIG STAT STA Rx#:[id number] Flagyl 500 MG Inj 100 ML @ 100 100 / 100 mls/hr IV.SIG STAT STA Rx#: [id number] Oral 400 / 400 Output: Urine 800 / 800 Other: # Voids 3 Date of Last Bowel Movement 01/28/18 01/28/18 Narrative: GENERAL: Alert, Oriented x 3, NAD. MUSCULOSKELETAL: Right leg below knee two open wounds noted with bloody drainage. Large induration and erythema present. Results Procedures completed during hospitalization: None. Labs on day of discharge: Labs from last 24 hours 01/29/18 01/29/18 01/28/18 09:03 09:03 14:13 WBC 8.2 RBC 3.91 L Hgb 11.3 L Hct 33.3 L MCV 85.2 MCH 28.8 MCHC 33.8 RDW 13.0 Plt Count 137 L MPV 8.0 Neut % (Auto) 65.8 Lymph % (Auto) 21.8 [place] % (Auto) 10.0 H Eos % (Auto) 2.0 Baso % (Auto) 0.4 Neut # (Auto) 5.4 Lymph # (Auto) 1.8 [place] # (Auto) 0.8 Eos # (Auto) 0.2 Baso # (Auto) 0.0 WBC Differential . Differential Comment Auto diff final Sodium 139 Potassium 3.8 D Chloride 107 Carbon Dioxide 27.9 Anion Gap 4 L BUN 9 Creatinine 0.65 Estimated GFR Greater than 89 Random Glucose 98 Lactic Acid 0.9 Calcium 8.9 Magnesium Total Bilirubin 0.3 AST 14 L ALT 12 Alkaline Phosphatase 87 Total Protein 7.0 D Albumin 2.4 L D 01/28/18 01/28/18 14:13 14:13 WBC 10.3 RBC 4.44 Hgb 13.1 Hct 37.0 MCV 83.3 MCH 29.5 MCHC 35.5 RDW 13.5 Plt Count 167 MPV 8.4 Neut % (Auto) 72.9 H Lymph % (Auto) 18.7 [place] % (Auto) 6.9 Eos % (Auto) 1.0 Baso % (Auto) 0.5 Neut # (Auto) 7.5 Lymph # (Auto) 1.9 [place] # (Auto) 0.7 Eos # (Auto) 0.1 Baso # (Auto) 0.1 WBC Differential . Differential Comment Auto diff final Sodium 133 L Potassium 5.4 H Chloride 100 Carbon Dioxide 27.9 Anion Gap 5 BUN 13 Creatinine 0.69 Estimated GFR Greater than 89 Random Glucose 79 Lactic Acid Calcium 9.2 Magnesium 2.3 Total Bilirubin 0.5 AST 53 H ALT 22 Alkaline Phosphatase 106 Total Protein 8.9 H Albumin 3.1 L Discharge Plan - Discharge Disposition Patient Disposition: 07 Against Medical Advice - Discharge Condition Condition: Stable - Discharge Order Discharge Orders: AMA Discharge (Routine); Ordered 01/29/18 Ordered By: June Hammonds - Discharge Details Anticipated Discharge Date: 01/29/18 Discharge Comment: Discussed with patient at length to stay due to high risk to limb and life. Pt decided to leave AMA. - Physicians Team Primary Care Provider: Primary Care Samreen,Lucy Attending Provider: June Hammonds
[2018-01-30] MEDS ORDERED: Pharmacy Ordered Lab Info OTHER ONE (10:45)
== END 2018-01-29 10:59 | disposition left against medical advice (07) ==
LOC: NEDA 13:29 → NEPD 13:29 → OBSVTOIN 17:13 → NEDA 18:37 → N04 18:43
PROVIDERS: ADMIT Hospitalist; ATTEND Hospitalist
CPT/HCPCS: 80053; 83605; 83735; 85025; 86403; 87040; 87070; 87186; 87205; J1885; J3370; J7030; J7050